=== PATIENT | female | born 1955 | race Caucasian/White ===

== ENCOUNTER 2018-08-21 21:14 | Emergency (ER) | payer OTHER ==
--- OUTSIDE RECORDS SUMMARY | 2018-08-21 21:25 | XMS REPORT | Continuity of Care Document ---
:1955 Author Organization Interface Problems Problem Status Onset Classification Date Comments Source Date Reported K86.2 - CYST OF Active [facility] PANCREAS 016 [facility] DIARRHEA Active Condition 06/17/2014 Medical 015 Group GASTROENTERITIS, Active Condition 06/17/2014 [facility] VIRAL, ACUTE 015 Group ABDOMINAL PAIN, Active Condition 06/17/2014 [facility] EPIGASTRIC 015 Group Diarrhea<sup>3</s Active Problem 10/01/2015 Data [facility] up> 015 migrated [facility] from [employer] on 09/07/14. Epigastric Active Problem 10/01/2015 Data [facility] pain<sup>5</sup> 015 migrated [facility] from [employer] on 09/07/14. Viral Resolved Problem 10/01/2015 Data [facility] gastroenteritis<s 015 migrated [facility] up>8</sup> from [employer] on 09/07/14. HYPERTENSION, Active Condition 06/17/2014 Medical BENIGN ESSENTIAL 015 Group SKIN LESION Active Condition 06/17/2014 Medical 015 Group Benign essential Active Problem 10/01/2015 Data [facility] hypertension<sup> 015 migrated [facility] 2</sup> from [employer] on 09/07/14. Disorder of Active Problem 10/01/2015 Data [facility] skin<sup>4</sup> 015 migrated [facility] from [employer] on 09/07/14. Vitamin D Active Problem 10/01/2015 Data [facility] deficiency<sup>9< 015 migrated [facility] /sup> from [employer] on 09/07/14. 577.2 - PANCREAT Active [facility] CYST/P 015 [facility] SINUSITIS Inactive Condition 06/17/2014 Medical 015 Group LOW BACK PAIN Active Condition 06/17/2014 Medical 014 Group BREAST SCREENING, Inactive Condition 06/17/2014 Medical UNSPECIFIED 014 Group TOE PAIN Inactive Condition 06/17/2014 Medical 014 Group ROUTINE Inactive Condition 06/17/2014 Medical GYNECOLOGICAL 014 Group EXAMINATION SCREENING FOR Inactive Condition 06/17/2014 Medical MALIGNANT 014 Group NEOPLASM OF THE CERVIX LEUKORRHEA Inactive Condition 06/17/2014 Medical 014 Group SCREENING, Inactive Condition 06/17/2014 Medical DIABETES MELLITUS 014 Group BRONCHITIS, ACUTE Inactive Condition 06/17/2014 Medical 014 Group Acute Resolved Problem 10/01/2015 Data [facility] bronchitis<sup>1< 014 migrated [facility] /sup> from [employer] on 09/16/14. BACK PAIN, LUMBAR Inactive Condition 06/17/2014 Medical 014 Group HIP PAIN, LEFT Inactive Condition 06/17/2014 Medical 014 Group NECK PAIN Inactive Condition 06/17/2014 Medical 013 Group BACK PAIN, Inactive Condition 06/17/2014 Medical THORACIC REGION 013 Group CYST AND Active Condition 06/17/2014 Medical PSEUDOCYST OF 013 Group PANCREAS ALLERGIC RHINITIS Active Condition 06/17/2014 Medical 013 Group DIVERTICULOSIS OF Inactive Condition 06/17/2014 Medical COLON 013 Group NEOPLASM Inactive Condition 06/17/2014 Medical UNCERTAIN BHV 013 Group OTH&UNSPEC DIGESTIVE ORGN IMPAIRED FASTING Inactive Condition 06/17/2014 Medical GLUCOSE 013 Group DYSLIPIDEMIA Active Condition 06/17/2014 Medical 013 Group PATELLAR Inactive Condition 06/17/2014 Medical DISLOCATION, 013 Group RIGHT ABDOMINAL PAIN, Inactive Condition 06/17/2014 Medical LEFT LOWER 013 Group QUADRANT DIVERTICULITIS OF Active Condition 06/17/2014 Medical COLON 013 Group UTI Inactive Condition 06/17/2014 Medical 013 Group SACROILIITIS, Active Condition 06/17/2014 Medical RIGHT 013 Group Urinary tract Resolved Problem 10/01/2015 Data [facility] infectious 013 migrated [facility] disease<sup>7</grewal from [employer] p> Cent[employer]ity on 09/16/14. MUSCLE SPASM Inactive Condition 06/17/2014 Medical 012 Group VITAMIN B12 Active Condition 06/17/2014 Medical DEFICIENCY 012 Group MACROCYTIC ANEMIA Inactive Condition 06/17/2014 Medical 012 Group COLD SORE Active Condition 06/17/2014 Medical 012 Group URINARY TRACT Inactive Condition 06/17/2014 Medical INFECTION, 012 Group RECURRENT GYNECOLOGICAL Inactive Condition 06/17/2014 Medical EXAMINATION 012 Group ROUTINE URINALYSIS, Inactive Condition 06/17/2014 Medical ABNORMAL 012 Group UTERINE PROLAPSE Inactive Condition 06/17/2014 Medical 012 Group SCREENING FOR Inactive Condition 06/17/2014 Medical MLIG NEOP, 012 Group BREAST, NOS PHYSICAL Inactive Condition 06/17/2014 Medical EXAMINATION 012 Group VITAMIN D Inactive Condition 06/17/2014 Medical DEFICIENCY 012 Group EXPOSURE TO Inactive Condition 06/17/2014 Medical COMMUNICABLE 012 Group DISEASE NOS Exposure to Resolved Problem 10/01/2015 Data [facility] communicable 012 migrated [facility] disease<sup>6</grewal from [employer] p> Centricity on 09/16/14. Herpes Labialis Problem 06/10/2016 [facility] Conjunctivitis Problem 06/10/2016 [facility] Acute Sinusitis Problem 06/10/2016 [facility] Acute Upper Problem 06/10/2016 [facility] Respiratory Infection Urinary Tract Problem 06/10/2016 [facility] Infectious Disease Vaginitis and Problem 06/10/2016 [facility] Vulvovaginitis Cellulitis of Problem 06/10/2016 [facility] Face Contact Problem 06/10/2016 [facility] Dermatitis Elevated Blood Problem 06/10/2016 [facility] Pressure Final: Other 01/03/2014 [facility] Screening [facility] Mammogram Allergic rhinitis Active Problem 10/01/2015 [facility] Cyst and Active Problem 10/01/2015 [facility] Pseudocyst of [facility] Pancreas GERD without Active Problem 10/01/2015 [facility] esophagitis [facility] Hyperlipidemia Active Problem 10/01/2015 [facility] LUMBAGO Active Problem 10/01/2015 [facility] Medications Medication Details Route Status Patient Ordering Order Source Instructions Provider Date ZOFRMARCOS ODT 4 MG 1-2 tabs po q8 Active Medical TBDP prn 2014 Group nausea/Vomitin g TRAMADOL HCL 50 1 tablet every Active Medical MG TABS 8 hours as 2014 Group needed for pain METOPROLOL 1 tablet daily Active Medical SUCCINATE ER 25 for blood 2014 Group MG [id number] pressure and heart [facility] per bottle Active Medical GLUCOSAMINE-CHO directions 2014 Group NDROITIN TABS CALTRATE 600+D 1-2 tabs daily Active Medical TABS 2014 Group AZITHROMYCIN 2 tablets No Medical 250 MG TABS daily for 1 Longer 2014 Group day, then 1 Active tablet daily for 4 days CIPROFLOXACIN 1 tablet twice No Medical HCL 500 MG TABS daily x 7 days Longer 2013 Group for infection Active CIPROFLOXACIN 1 tablet twice No Medical HCL 500 MG TABS daily x 7 days Longer 2013 Group for infection Active CIPRO 500 MG 0ne po bid No Medical TABS Longer 2013 Group Active FLAGYL 500 MG one po tid No Medical TABS Longer 2013 Group Active CIPRO 500 MG 0ne po bid No Medical TABS Longer 2013 Group Active CIPRO 500 MG 1 tab po bid No Medical TABS for 10 days Longer 2013 Group Active CIPRO 500 MG 1 tab po bid No Medical TABS for 10 days Longer 2013 Group Active TRAMADOL HCL 50 1 po q6h prn No Medical MG TABS pain Longer 2013 Group Active TRAMADOL HCL 50 1 po q6h prn No Medical MG TABS pain Longer 2013 Group Active TRAMADOL HCL 50 1 po q6h prn No Medical MG TABS pain Longer 2013 Group Active TRAMADOL HCL 50 1 po q6h prn No Medical MG TABS pain Longer 2013 Group Active IBUPROFEN 800 One tab PO BID No Medical MG TABS prn pain Longer 2012 Group Active IBUPROFEN 800 One tab PO BID No 12/10/ Medical MG TABS prn pain Longer 2012 Group Active IBUPROFEN 800 One tab PO BID No 12/10/ Medical MG TABS prn pain Longer 2012 Group Active CIPRO 500 MG 1 tb po bid No Medical TABS Longer 2012 Group Active CIPRO 500 MG 1 tb po bid No Medical TABS Longer 2012 Group Active FLAGYL 500 MG 1 tab po tid No Medical TABS FOR 10 DAYS Longer 2012 Group Active DIFLUCAN 150 MG 1 dose QWK FOR No Medical TABS 2 WEEKS Longer 2012 Group Active BACTRIM DS 1 bid for 10 No Medical 800-160 MG TABS days Longer 2012 Group Active BACTRIM DS 1 bid for 10 No Medical 800-160 MG TABS days Longer 2012 Group Active ZANTAC 150 MG 1 po qd Active Medical TABS 2012 Group CIPRO 500 MG 1 tb po bid No Medical TABS Longer 2012 Group Active CIPRO 500 MG 1 tb po bid No Medical TABS Longer 2012 Group Active MOBIC 15 MG 1 tab po qd Active Medical TABS prn ( 2012 Group inflammation/p ain) CIPRO 500 MG 1 tab po bid No Medical TABS for 7 days Longer 2012 Group Active MOBIC 15 MG 1 tab po qd Active Medical TABS prn ( 2012 Group inflammation/p ain) CIPRO 500 MG 1 tab po bid No Medical TABS for 7 days Longer 2012 Group Active METAXALONE 800 1 tab po tid Active Medical MG TABS prn 2011 Group LIDODERM 5 % apply to area Active Medical PTCH that hurts up 2011 Group to 12h/d METAXALONE 800 1 tab po tid No 10/31/ Medical MG TABS prn Longer 2011 Group Active LIDODERM 5 % apply to area Active Medical PTCH that hurts up 2011 Group to 12h/d METAXALONE 800 1 tab po tid Active Medical MG TABS prn 2011 Group ALENDRONATE 1 po q week No Medical SODIUM 70 MG remain upright Longer 2011 Group TABS for one hour Active after taking take on empty stomach ALENDRONATE 1 po q week No Medical SODIUM 70 MG remain upright Longer 2011 Group TABS for one hour Active after taking take on empty stomach ACYCLOVIR 400 1 tab po tid Active Medical MG TABS 2011 Group EVISTA 60 MG 1 po q d No Medical TABS Longer 2011 Group Active EVISTA TAB 60MG 1 po daily No Medical Longer 2011 Group Active ACYCLOVIR 400 1 tab po up to Active Medical MG TABS 5x daily x 7 2011 Group days EVISTA 60 MG 1 po q d No Medical TABS Longer 2011 Group Active EVISTA TAB 60MG 1 po daily No Medical Longer 2011 Group Active ACYCLOVIR 400 1 tab po tid Active Medical MG TABS 2011 Group FLUTICASONE 2 puffs each Active Medical PROPIONATE 50 nostril qd 2011 Group MCG/ACT SUSP PEDIADERM TA apply No Medical 0.1 % KIT topically prn Longer 2011 Group rash Active ETODOLAC 400 MG 1 tab po bid No Medical TABS prn Longer 2011 Group Active TRIAMCINOLONE apply once No Medical ACETONIDE 0.1 % daily Longer 2011 Group CREA Active FLONASE 50 2 sprays eacnh No Medical MCG/ACT SUSP nostril qd prn Longer 2011 Group allergies Active ETODOLAC 400 MG 1 tab po bid No Medical TABS prn Longer 2011 Group Active FLONASE 50 2 sprays eacnh No Medical MCG/ACT SUSP nostril qd prn Longer 2011 Group allergies Active FLUTICASONE Two sprays Active Medical PROPIONATE 50 each nostril 2011 Group MCG/ACT SUSP daily ETODOLAC 400 MG 1 tab po bid No Medical TABS prn Longer 2011 Group Active ETODOLAC 400 MG 1 tab po bid No Medical TABS prn Longer 2011 Group Active Alendronic acid alendronate 70 Active [facility] 70 MG Oral mg tablet TAKE Tablet 1 TABLET ONCE A WEEK ORALLY 30 DAY(S) Calcium 500 + D Calcium 500 + Active [facility] D Fluarix Quad Fluarix Quad Active [facility] [id number] (PF) 4243-8203 (PF) 60 mcg (15 mcg 60 mcg (15 mcg x 4)/0.5 mL IM x 4)/0.5 mL IM syringe syringe TO BE ADMINISTERED BY PHARMACIST FOR IMMUNIZATION Fluticasone fluticasone 50 Active [facility] propionate 0.05 mcg/actuation MG/ACTUAT nasal Metered Dose spray,suspensi Nasal Coral on Inhale 2 sprays every day by intranasal route as directed to both nostrils for 14 days. Lidocaine 0.05 lidocaine 5 % Active [facility] MG/MG Medicated topical patch Patch meloxicam 15 MG meloxicam 15 Active [facility] Oral Tablet mg tablet TAKE 1 TABLET BY MOUTH EVERY DAY metaxalone 800 metaxalone 800 Active [facility] MG Oral Tablet mg tablet TAKE 1 TABLET BY MOUTH TWICE A DAY NEEDED FOR 90 DAYS 24 HR metoprolol Active [facility] metoprolol succinate ER succinate 25 MG 25 mg Extended tablet,extende Release Oral d release 24 Tablet hr TAKE 1 TABLET BY MOUTH DAILY tramadol tramadol 50 mg Active [facility] hydrochloride tablet TAKE 1 50 MG Oral TABLET BY Tablet MOUTH EVERY 12 HOURS NEEDED PAIN Ranitidine 150 Zantac 150 mg Active [facility] MG Oral Tablet tablet Take 1 [Zantac] tablet twice a day by oral route. Allergies, Adverse Reactions, Alerts Substance Category Reaction Severity Reaction Status Date Comments Source type Reported FOSAMAX Drug FOSAMAX Medical allergy 4 Group alendronat Assertion Drug Active 1Data [facility] e<sup>1</s allergy 4 migrated [facility] up> from [employer] on 07/01/14. Originally documented as FOSAMAX. hurt all over from head to toe, tailbone hurt Fosamax Allergy to [facility] substance 5 Actonel Allergy to [facility] substance 5 Immunizations Immunization Date Site Status Last Comments Source Given Updated influenza, completed [facility] injectable, 5 quadrivalent Tdap completed [facility] 5 influenza, completed [facility] injectable, 4 quadrivalent influenza, completed [facility] seasonal, 3 injectable influenza, completed [facility] seasonal, 2 injectable dT (Diphtheria completed Medical and Tetanus) 1 Group booster given tetanus-diphther completed Result [facility] ia 1 Comment: Rosemary toxoids<sup>1</s historical. up> Migrated from OBS ; Data migrated from [employer] on 04/04/2015. Tdap completed [facility] 1 Results Order Name Results Value Reference Date Interpretation Comments Source Range Abdomen wo Abdomen wo PROCEDURE: MAGNETIC RESONANCE CHOLANGIOPANCREATOGRAPHY 09/27 - [facility] contrast contrast MRI /2015 - [facility] CLINICAL INDICATION: K86.2 Cyst of pancreas. Read by: Roel Segovia MD Dictated Date/time: 09/29/15 10:45 Electronically Signed by: Roel Segovia MD 09/29/15 11:27 FINAL REPORT COMPARISON: MRCP 08/18/2014. Abdomen magnetic resonance imaging 2013 and 08/10/2012. Abdomen and pelvis CT 06/25/2012. TECHNIQUE: Magnetic resonance cholangiopancreatography is performed with unenhanced coronal T2 and axial T2 weighted MR images of the abdomen. Thick slab MRCP images and maximum intensity projection images are also obtained. Please note that lack of intravenous contrast limits evaluation of the organs and vasculature. FINDINGS: There is mild patient motion. There is no biliary dilatation. The maximal diameter of the common bile duct measures approximately 5 mm. There is apparent segmental narrowing of the mid aspect of the common bile duct on the projection images which may be artifactual. There is no demonstrable choledocholithiasis. There is an apparent 9 x 4 mm filling defect in the lumen of the gallbladder neck (e.g. image 23 series 401), new from the comparison examinations. A gallstone cannot be excluded. No gallstone was repor denisha on a liver ultrasound performed 06/17/2014. There is no demonstrable gallbladder wall thickening or pericholecystic fluid. Again noted are pancreatic cysts. There are two stable cysts in the pancreatic head each measuring approximately 10 mm. There are 2 tiny cysts in the uncinate process of the pancreas measuring approxima tely 4 mm and 3 mm, a solitary 4 mm cyst was noted in the uncinate process of the pancreas on the most recent comparison examination. There are multiple tiny cysts scattered throughout the pancreatic marilyn dy and tail the largest measuring approximately 4 mm which given the differences in slice selection have increased in number from the most recent comparison examination. The pancreas is otherwise unrema rkable. There is no demonstrable pancreatic ductal dilatation or acute inflammatory change. There is a stable 9 mm right adrenal nodule. There is no demonstrable abnormality of the liver, spleen, left adrenal gland or kidneys. There is no hydronephrosis. A tiny cyst in the posterior segment of the right hepatic lobe on the most recent comparison examinations is not seen on this examination. There is a nonobstructive bowel gas pattern. There is colonic diverticulosis. There is no ascites or pleural effusion. The caliber of the abdominal aorta is within normal limits. There is no demonstrable pathologic retroperitoneal lymphadenopathy. There are degenerative changes of the spine. There is grade 1 anterolisthesis of L4 on L5 demonstrated on the localizer images. There is spinal stenosis at L4-L5. This would be better assessed with lumbar spine magnetic resonance imaging. IMPRESSION: 1. Multiple subcentimeter pancreatic cysts have increased in number from the most recent comparison examination. 2. Possible small gallstone in the gallbladder neck. Further evaluation may be obtained with a gallbladder ultrasound. 3. Otherwise there has been no significant interval change from the most recent comparison MRCP performed 08/18/2014. SL: 15 Tibia Tibia fibula Examination: Right tibia/fibula, 2 [facility] - [facility] series DX History: 924.5 Contusion of Unspecified Part of Lower Limb Read by : Tato Hudson MD Dictated Date/time: 10/28/14 11:29 Electronically Signed by: Tato Hudson MD 10/28/14 11:30 FINAL REPORT Comparison: None. Findings: Multiple views of the right tibia/fibula show no acute bony fracture, joint dislocation or suspicious osseous lesion. Soft tissues are unremarkable. IMPRESSION: No significant abnormality of the right tibia/fibula. SL: 16 Ext Lower Ext Lower PROCEDURE: UNILATERAL LOWER EXTREMITY VENOUS ULTRASOUND 10/28 [facility] Venous Venous /2014 - [facility] Doppler Doppler Unilat US Unilat US INDICATION: Hematoma/contusion. Read by: Roel Segovia MD Dictated Date/time: 10/28/14 12:54 Electronically Signed by: Roel Segovia MD 10/28/14 13:02 FINAL REPORT COMPARISON: None. TECHNIQUE: Sonographic evaluation of the right lower extremity veins was performed using high resolution B-mode, pulse and color Doppler imaging. Static images are submitted. FINDINGS:The common femoral, femoral, popliteal and visualized calf veins are patent. Normal venous waveforms. The saphenofemoral junction is unremarkable. There is no demonstrable reflux in the proximal greater saphenous vein. In the subcutaneous soft tissues of the right knee at the location of the patient's symptoms there is a 4.6 x 4.2 x 0.6 cm nonvascular complex cystic structure. The primary consideration is a hematoma. IMPRESSION: 1. There is no sonographic evidence for deep venous thrombosis in the examined veins of the right lower extremity. 2. There is a 4.6 cm complex cystic structure in the subcutaneous soft tissues of the right knee. The primary consideration is a hematoma. If desired further evaluation may be obtained with an unenhanced and enhanced MRI of the right knee. SL: 16 Abdomen wo Abdomen wo 08/18 - OPI contrast contrast MRI /2014 - [facility] MRCP Read by: Roel Segovia MD Dictated Date/time: 08/18/14 16:40 REASON FOR EXAM: 577.2. Pancreatic cyst. Electronically Signed by: Roel Segovia MD 08/18/14 17:27 FINAL REPORT COMPARISON: Liver ultrasound 06/17/2014. MRI of the abdomen 2013 and 08/10/2012. Abdomen and pelvic CT 06/25/2012. TECHNIQUE: Unenhanced axial and coronal T2-weighted MR images of the abdomen were performed. Thick slab projection images of the common bile duct were performed. Please note that lack of IV contrast limits evaluation of the solid organs and vasculature. FINDINGS: There is patient motion/poor breath-holding on the thick slab projection images with resulting artifact. The common bile duct demonstrates a normal caliber measuring a maximal diameter of 5 mm . There is artifact in the mid aspect of the common bile duct on the reformatted projection images. Given this limitation there is no demonstrable biliary mass or stone. There are pancreatic cysts: Stable 10 mm cyst in pancreatic head, additional 10 mm cyst in the pancreatic head (previously 8 mm on the most recent comparison examination), stable 4 mm cyst in the uncina te process, stable 3 mm cyst in the proximal pancreatic body, stable 3 mm cyst in the distal pancreatic body and stable 4 mm cyst in the distal pancreatic body. There is no pancreatic ductal dilatation or acute pancreatic inflammatory change. There is a stable 9 mm right adrenal nodule. There is a stable 3 mm cyst in the posterior segment of the right hepatic lobe. The left adrenal gland, gallbladder, spleen and kidneys are unremarkable. No hydronephrosis. There is a nonobstructive bowel gas pattern. There is colonic diverticulosis. There is no ascites or pleural effusion. The caliber of the abdominal aorta is within normal limits. There is no pathologic retroperitoneal lymphadenopathy. There are degenerative changes of the spine. There is grade 1 anterolisthesis of L4 on L5 demonstrated on the localizer images. There is spinal stenosis at L4-L5. This would be better assessed with a lumbar spine MRI. IMPRESSION: 1. A 10 mm cyst in the pancreatic head demonstrates slight interval increase in size from the most recent comparison examination, previously 8 mm. 2. Otherwise there has been no significant interval change from the most recent comparison MRI of the abdomen performed 2013. SL: 15 Chemistry AMYLASE 65 U/L 25 - 115 06/17 Medical Group Chemistry MAGNESIUM 1.5 mg/dL 1.8 - 2.4 06/17 Medical Group Chemistry SODIUM 139 MEQ/L 135 - 145 06/17 mmol/L Medical Group Chemistry POTASSIUM 3.7 MEQ/L 3.5 - 5.1 06/17 mmol/L Medical Group Chemistry CREATININE 0.8 mg/dL 0.5 - 1.4 06/17 Medical Group Chemistry BUN 10 mg/dL 7 - 22 06/17 Medical Group Chemistry BUN/CREAT 12 6 - 25 06/17 Medical Group Chemistry ALBUMIN 4.1 g/dL 3.5 - 5.0 06/17 Medical Group Chemistry CALCIUM 9.2 mg/dL 8.5 - 10.5 06/17 Medical Group Chemistry SGPT (ALT) 26 U/L 0 - 65 06/17 Medical Group Chemistry SGOT (AST) 25 U/L 0 - 37 06/17 Medical Group Chemistry ALK PHOS 87 U/L 39 - 136 06/17 Medical Group Hematology HGB 12.9 g/dL 12.0 - 06/17 16.0 Medical Group Hematology HCT 39.7 % 36.0 - 06/17 48.0 Medical Group Hematology PLATELETS 269 K/CMM 133 - 450 06/17 /mm3 /2014 Medical Group Urinalysis UA COLOR Light 06/17 Medical Group Urinalysis BACTERIA URN Occasional 06/17 Medical Group Liver US Liver US PLEASE DISREGARD THIS REPOR-WRONG ORDERING PHYSICIAN - [facility] HISTORY: Abdominal pain. Liver ultrasound exam. Electronically Signed by: Jose Luis Mendes MD 06/28/14 12:54 FINAL REPORT - - Liver parenchyma normal. Gallbladder normal. Read by: Jose Luis Mendes MD Dictated Date/time: 06/17/14 10:49 Common bile duct 5 mm. Electronically Signed by: Jose Luis Mendes MD 06/17/14 10:51 FINAL REPORT Visualized pancreatic neck and body normal. The right kidney demonstrates no hydronephrosis. No ascites seen. IMPRESSION: No significant finding. SL:13 Liver US Liver US HISTORY: Abdominal pain. 06/17 - - [facility] Liver ultrasound exam. Read by: Jsoe Luis Mendes MD Dictated Date/time: 06/17/14 10:49 Electronically Signed by: Jose Luis Mendes MD 06/17/14 10:51 FINAL REPORT Liver parenchyma normal. Gallbladder normal. Common bile duct 5 mm. Visualized pancreatic neck and body normal. The right kidney demonstrates no hydronephrosis. No ascites seen. IMPRESSION: No significant finding. SL:13 Chemistry SODIUM 135 MEQ/L 135 - 145 06/04 mmol/L Medical Group Chemistry POTASSIUM 4.3 MEQ/L 3.5 - 5.1 06/04 mmol/L Medical Group Chemistry CREATININE 0.9 mg/dL 0.5 - 1.4 06/04 Medical Group Chemistry BUN 16 mg/dL 7 - 22 06/04 Medical Group Chemistry BUN/CREAT 18 6 - 25 06/04 Medical Group Chemistry ALBUMIN 4.4 g/dL 3.5 - 5.0 06/04 Medical Group Chemistry CALCIUM 9.6 mg/dL 8.5 - 10.5 06/04 Medical Group Chemistry SGPT (ALT) 22 U/L 0 - 65 06/04 Medical Group Chemistry SGOT (AST) 24 U/L 0 - 37 06/04 Medical Group Chemistry ALK PHOS 98 U/L 39 - 136 06/04 [facility] Chemistry SODIUM 135 MEQ/L 135 - 145 06/04 mmol/L [facility] Chemistry POTASSIUM 4.3 MEQ/L 3.5 - 5.1 06/04 mmol/L [facility] Chemistry CREATININE 0.9 mg/dL 0.5 - 1.4 06/04 [facility] Chemistry BUN 16 mg/dL 7 - 22 06/04 [facility] Chemistry BUN/CREAT 18 6 - 25 06/04 [facility] Hematology HGB 13.4 g/dL 12.0 - 06/04 16.0 [facility] Hematology HCT 40.6 % 36.0 - 06/04 48.0 [facility] Hematology PLATELETS 220 K/CMM 133 - 450 06/04 / [facility] Urinalysis UA COLOR Light 06/04 Yellow /2014 [facility] Urinalysis UA COLOR Light 06/04 Yellow /2014 [facility] Digital Digital - DIGITAL MAMMO SCREENING JOSUE PANG 12/31 - [facility] Mammo Mammo /2013 [facility] Screening Screening BILATERAL DIGITAL SCREENING MAMMOGRAM WITH CAD: 2013 Josue Salas MD CLINICAL: Routine. Read by: Ban Moctezuma MD Dictated Date/time: 12/31/13 08:45 Electronically Signed by: Ban Moctezuma MD 12/31/13 08:45 FINAL REPORT Current study was evaluated with a Computer Aided Detection (CAD) system. Comparison is made to exams dated: 11/24/2012 mammogram and 11/14/2011 mammogram - [facility]. The tissue of both breasts is almost entirely fat. There is a benign calcification in the right breast. There also are benign appearing calcifications in the left breast. Additionally there are benign appearing densities in the left breast. No significant masses, calcifications, or other findings are seen in either breast. There has been no significant interval change. IMPRESSION: BENIGN There is no mammographic evidence of malignancy. A screening mammogram in one year is recommended. Ban plasencia/penrad:12/31/2013 08:45:46 Hearing Aid Assembly Supervisor: Nadya Wadsworth [facility] This exam was dictated and interpreted by [id number] for Rosemary 15. letter sent: Normal exam Mammogram BI-RADS: 2 Benign Chemistry SODIUM 140 MEQ/L 135 - 145 12/09 mmol/L [facility] Chemistry POTASSIUM 4.6 MEQ/L 3.5 - 5.1 12/09 mmol/L [facility] Chemistry CREATININE 0.8 mg/dL 0.5 - 1.4 12/09 [facility] Chemistry BUN 13 mg/dL 7 - 22 12/09 [facility] Chemistry SODIUM 140 MEQ/L 135 - 145 12/09 mmol/L [facility] Chemistry POTASSIUM 4.6 MEQ/L 3.5 - 5.1 12/09 mmol/L [facility] Chemistry CREATININE 0.8 mg/dL 0.5 - 1.4 12/09 [facility] Chemistry BUN 13 mg/dL 7 - 22 12/09 [facility] Chemistry BUN/CREAT 16 6 - 25 12/09 [facility] Chemistry SODIUM 140 MEQ/L 135 - 145 12/09 mmol/L [facility] Chemistry POTASSIUM 4.6 MEQ/L 3.5 - 5.1 12/09 mmol/L [facility] Chemistry CREATININE 0.8 mg/dL 0.5 - 1.4 12/09 [facility] Chemistry BUN 13 mg/dL 7 - 22 12/09 [facility] Chemistry BUN/CREAT 16 6 - 25 12/09 [facility] Chemistry ALBUMIN 4.4 g/dL 3.5 - 5.0 12/09 [facility] Chemistry CALCIUM 9.7 mg/dL 8.5 - 10.5 12/09 [facility] Chemistry SGPT (ALT) 21 U/L 0 - 65 12/09 [facility] Chemistry SGOT (AST) 17 U/L 0 - 37 12/09 [facility] Chemistry ALK PHOS 112 U/L 39 - 136 12/09 [facility] Hematology ESR 6 mm/hr 0 - 20 12/09 [facility] Serology ION Positive 12/09 [facility] Serology ION Positive 12/09 [facility] Serology ION Positive 12/09 [facility] Urinalysis UA COLOR Light 12/09 [facility] Urinalysis UA COLOR Light 12/09 [facility] Urinalysis UA COLOR Light 12/09 [facility] Chemistry HGBA1C 5.3 % - 5.6 08/02 [facility] Chemistry CHOLESTEROL 234 mg/dl - 199 08/02 [facility] Chemistry HGBA1C 5.3 % - 5.6 08/02 [facility] Chemistry CHOLESTEROL 234 mg/dl - 199 08/02 [facility] Chemistry TRIGLYCERIDE 130 mg/dl - 149 08/02 [facility] Chemistry HDL 70 mg/dl >=61 08/02 [facility] Chemistry HGBA1C 5.3 % - 5.6 08/02 [facility] Chemistry CHOLESTEROL 234 mg/dl - 199 08/02 [facility] Chemistry TRIGLYCERIDE 130 mg/dl - 149 08/02 [facility] Chemistry HDL 70 mg/dl >=61 08/02 [facility] Chemistry LDL 138 mg/dl - 99 08/02 [facility] Chemistry HGBA1C 5.3 % - 5.6 08/02 [facility] Chemistry CHOLESTEROL 234 mg/dl - 199 08/02 [facility] Chemistry TRIGLYCERIDE 130 mg/dl - 149 08/02 [facility] Chemistry HDL 70 mg/dl >=61 08/02 [facility] Chemistry LDL 138 mg/dl - 99 08/02 [facility] Chemistry SODIUM 139 MEQ/L 135 - 145 08/02 mmol/L [facility] Chemistry POTASSIUM 4.4 MEQ/L 3.5 - 5.1 08/02 mmol/L [facility] Chemistry CREATININE 0.6 mg/dL 0.5 - 1.4 08/02 [facility] Chemistry BUN 12 mg/dL 7 - 22 08/02 [facility] Chemistry BUN/CREAT 20 6 - 25 08/02 [facility] Chemistry ALBUMIN 4.1 g/dL 3.5 - 5.0 08/02 [facility] Chemistry CALCIUM 9.3 mg/dL 8.5 - 10.5 08/02 [facility] Chemistry SGPT (ALT) 22 U/L 0 - 65 08/02 [facility] Chemistry SGOT (AST) 25 U/L 0 - 37 08/02 [facility] Chemistry ALK PHOS 114 U/L 39 - 136 08/02 [facility] Chemistry TSH 0.554 0.360 - 08/02 uIU/mL 3.740 /2013 [facility] Hematology HGB 13.5 g/dL 12.0 - 08/02 MH 16.0 [facility] Hematology HCT 40.3 % 36.0 - 08/02 48.0 [facility] Hematology PLATELETS 228 K/CMM 133 - 450 08/02 /mm3 [facility] Urinalysis UA COLOR Colorless 08/02 [facility] Urinalysis UA COLOR Colorless 08/02 [facility] Urinalysis BACTERIA URN Occasional 08/02 [facility] Urinalysis UA COLOR Colorless 08/02 [facility] Urinalysis BACTERIA URN Occasional 08/02 [facility] Urinalysis UA COLOR Colorless 08/02 [facility] Urinalysis BACTERIA URN Occasional 08/02 [facility] Abdomen Abdomen w/wo 03/15 - [facility] w/wo contrast /2013 - [facility] contrast REASON FOR EXAM: 577.2. MRI Read by: Roel Segovia Dictated Date/time: 03/15/13 10:35 COMPARISON: MRI of the abdomen 08/10/2012. Abdomen and pelvic CT 2012. Electronically Signed by: Reol Segovia MD 03/15/13 11:39 FINAL REPORT TECHNIQUE: Unenhanced axial and coronal MR images of the abdomen were performed. Postcontrast axial images of the abdomen were performed in a dynamic fashion. A coronal delayed postcontrast sequence was performed. FINDINGS: There are simple appearing pancreatic cysts: 10 mm in the uncinate process of the pancreatic head (previously 7 mm), 8 mm in the pancreatic head (previously 6 mm), and stable cysts in the dist al pancreatic body measuring 4 mm and 3 mm. Several additional cysts in the uncinate process of the pancreas the largest measuring 4 mm and a 3 mm cyst in the pancreatic body are likely stable from the comparison examination given the differences in technique (a high- resolution axial T2 weighted sequence of the pancreas was performed on this examination). The postcontrast sequences are somewhat limite d due to patient motion/poor breath-holding with resulting artifact. Given this limitation there is no demonstrable abnormal enhancement. There is no demonstrable pancreatic ductal dilatation or pancreatic inflammatory change. There is a stable 9 mm right adrenal nodule with imaging characteristics suggesting a benign adenoma. A newly observed 3 mm cyst is suspected in the posterior segment of the right hepatic lobe (image 16 series 401). The left adrenal gland, gallbladder, spleen and kidneys are unremarkable. No hydronephrosis. There is a nonobstructive bowel gas pattern. Colonic diverticulosis. No ascites or pleural effusion. The caliber of the abdominal aorta is within normal limits. There is no pathologic retroperitoneal ly mphadenopathy. Degenerative changes of the spine. IMPRESSION: 1. There is a newly observed tiny cyst in the right hepatic lobe. 2. Small pancreatic cysts some of which demonstrate slight interval increase in size. Consider an additional short interval follow-up MRI of the pancreas in 6 months. 3. Otherwise there has been no significant interval change from the comparison MRI of the abdomen performed 08/10/2012. Please correlate clinically and consider follow-up imaging as indicated. Dictation code: 15 Hip min 2 Hip min 2 Left hip-2 views 03/10 - [facility] views views /2013 - [facility] HX: LEFT HIP PAIN / Read by: Esdras Arriaga Dictated Date/time: 03/10/13 13:55 FINDINGS: AP and lateral views reveal no evidence of fracture, dislocation or radiopaque foreign body. The visualized soft tissues are grossly normal. Electronically Signed by: Esdras Arriaga MD 03/10/13 13:56 FINAL REPORT IMPRESSION: Negative study. SL: 15 Spine Spine lumbar LUMBAR SPINE SERIES -- 5 VIEWS 03/10 - [facility] lumbar minimum - [facility] minimum 4 views HX: LOW BACK PAIN views Read by: Esdras Arriaga Dictated Date/time: 03/10/13 13:55 FINDINGS: Views of the lumbar spine reveal no evidence of compression deformity or subluxation. Vertebral body heights and disc space intervals are preserved. Oblique views show no evidence of spondy Electronically Signed by: Esdras Arriaga MD 03/10/13 13:55 lolysis or spondylolisthesis. Five lumbar-type vertebral bodies are present. FINAL REPORT IMPRESSION: Negative lumbar spine series. SL: 15 Spine cerv Spine cerv CERVICAL SPINE RADIOGRAPH 7 VIEWS WITH FLEXION AND EXTENSION 01/29 - [facility] comp comp /2012 - [facility] w/obl-flx/e w/obl-flx/ex xt t INDICATION: Neck pain Read by: Juan David Gonzalez Dictated Date/time: 01/29/13 13:25 Electronically Signed by: Juan David Gonzalez MD 01/29/13 13:27 FINAL REPORT COMPARISON: None FINDINGS: The vertebral bodies are within normal alignment. Flexion and extension do not elicit spondylolisthesis. The disc spaces are maintained. There is no appreciable foraminal stenosis. No compression or dis placed fractures are seen. The prevertebral soft tissues are unremarkable. IMPRESSION: Unremarkable radiographic appearance of the cervical spine. SL: 16 Spine Spine THORACIC SPINE RADIOGRAPH 3 [facility] 3 thoracic - [facility] views views INDICATION: Back pain Read by: Juan David Gonzalez Dictated Date/time: 01/29/13 13:27 Electronically Signed by: Juan David Gonazlez MD 01/29/13 13:27 FINAL REPORT COMPARISON: None FINDINGS: Vertebral alignment is within normal limits. The disc spaces are maintained. No compression or displaced fractures are seen. The paravertebral soft tissues are unremarkable. IMPRESSION: Unremarkable thoracic spine radiograph. SL: 16 Digital Digital - DIGITAL MAMMO SCREENING JOSUE BIRD 11/24 - [facility] /[address] [place] [address] Screening Screening BILATERAL DIGITAL SCREENING MAMMOGRAM WITH CAD: 2012 [facility] CLINICAL: Screening For Mlig Neop, Breast, Nos (Icd-V76.10). Read by : Ban Moctezuma Dictated Date/time: 11/27/12 10:23 Electronically Signed by: Ban Moctezuma MD 11/27/12 10:23 FINAL REPORT Current study was evaluated with a Computer Aided Detection (CAD) system. Comparison is made to exam dated: 11/14/2011 mammogram - [facility]. The tissue of both breasts is predominantly fatty. There is a benign calcification in the right breast. There also are benign appearing calcifications in the left breast. Additionally there are benign appearing densities in the left breast. No significant masses, calcifications, or other findings are seen in either breast. There has been no significant interval change. IMPRESSION: BENIGN There is no mammographic evidence of malignancy. A screening mammogram in one year is recommended. SUMMARY: SL: 15. Ban plasencia/penrad:11/27/2012 10:23:28 Hearing Aid Assembly Supervisor: Cristel Narvaez [facility] letter sent: Normal exam Mammogram BI-RADS: 2 Benign Abdomen Abdomen with 08/10 - [facility] with and and [facility] without contrast MRI REASON FOR EXAM: 235.5. contrast MRI Read by: Roel Segovia Dictated Date/time: 08/10/12 10:46 COMPARISON: Abdomen and pelvic CT 06/25/2012. Electronically Signed by: Roel Segovia MD 08/10/12 11:31 FINAL REPORT TECHNIQUE: Unenhanced axial and coronal MR images of the abdomen were performed. Postcontrast axial images of the abdomen were performed in a dynamic fashion. FINDINGS: There are nonenhancing pancreatic cysts: 7 mm in the uncinate process of the pancreatic head, 6 mm in the pancreatic head, 4 mm in the distal pancreatic body and 3 mm in the distal pancreatic body. No demonstrable wall thickening, mural nodule or internal septation. No demonstrable pancreatic ductal dilatation or pancreatic inflammatory change. There is a 9 mm right adrenal nodule with decreased signal intensity on the out of phase dual echo sequence suggesting a benign adenoma. The left adrenal gland, liver, gallbladder, spleen and kidneys are unremarkable. There is a nonobstructive bowel gas pattern. The stomach is nondistended limiting evaluation of the gastric wall. Colonic diverticulosis without demonstrable acute diverticulitis. No ascites or pleural effusion. The caliber of the abdominal aorta is within normal limits. There is no pathologic retroperitoneal lymphadenopathy. There is spinal stenosis at L4-L5 secondary to degenerative changes. This would be better assessed with a lumbar spine MRI. IMPRESSION: 1. There are several subcentimeter nonenhancing pancreatic cysts. A benign etiology is favored. A follow-up pancreatic CT or MRI is suggested in 6 months to demonstrate stability. 2. Small right adrenal nodule with imaging characteristics suggesting a benign adenoma. 3. Colonic diverticulosis. 4. Spinal stenosis at L4-L5 secondary to degenerative changes. Please correlate clinically and consider follow-up imaging as indicated. Dictation code: 15 Chemistry HGBA1C 5.5 % 07/07 [facility] Chemistry CHOLESTEROL 237 mg/dl 120 - 200 07/07 [facility] Chemistry HGBA1C 5.5 % 07/07 [facility] Chemistry CHOLESTEROL 237 mg/dl 120 - 200 07/07 [facility] Chemistry TRIGLYCERIDE 167 mg/dl 0 - 200 07/07 [facility] Chemistry HDL 72 mg/dl >=35 07/07 [facility] Chemistry HGBA1C 5.5 % 07/07 [facility] Chemistry CHOLESTEROL 237 mg/dl 120 - 200 07/07 [facility] Chemistry TRIGLYCERIDE 167 mg/dl 0 - 200 07/07 [facility] Chemistry HDL 72 mg/dl >=35 07/07 [facility] Chemistry LDL 132 mg/dl 0 - 129 07/07 [facility] Chemistry HGBA1C 5.5 % 07/07 [facility] Chemistry CHOLESTEROL 237 mg/dl 120 - 200 07/07 [facility] Chemistry TRIGLYCERIDE 167 mg/dl 0 - 200 07/07 [facility] Chemistry HDL 72 mg/dl >=35 07/07 [facility] Chemistry LDL 132 mg/dl 0 - 129 07/07 [facility] Chemistry SODIUM 141 MEQ/L 135 - 145 07/07 mmolL [facility] Chemistry POTASSIUM 4.1 MEQ/L 3.5 - 5.1 07/07 mmol/L [facility] Chemistry CREATININE 0.7 mg/dL 0.5 - 1.4 07/07 [facility] Chemistry BUN 12 mg/dL 7 - 22 07/07 [facility] Chemistry BUN/CREAT 17 6 - 25 07/07 [facility] Chemistry ALBUMIN 4.3 g/dL 3.5 - 5.0 07/07 [facility] Chemistry CALCIUM 9.4 mg/dL 8.5 - 10.5 07/07 [facility] Chemistry SGPT (ALT) 23 U/L 0 - 65 07/07 [facility] Chemistry SGOT (AST) 19 U/L 0 - 37 07/07 [facility] Chemistry ALK PHOS 109 U/L 39 - 136 07/07 [facility] Group Urinalysis UA COLOR YELLOW 06/23 [facility] Urinalysis UA COLOR YELLOW 06/23 [facility] Urinalysis EPI CELL UR 0-5 /lpf - 5 06/23 [facility] Urinalysis BACTERIA URN NONE SEEN 06/23 [facility] Urinalysis UA COLOR YELLOW 06/23 [facility] Urinalysis EPI CELL UR 0-5 /lpf - 5 06/23 [facility] Urinalysis BACTERIA URN NONE SEEN 06/23 [facility] Urinalysis UA COLOR YELLOW 06/23 [facility] Urinalysis EPI CELL UR 0-5 /lpf - 5 06/23 [facility] Urinalysis BACTERIA URN NONE SEEN 06/23 [facility] Chemistry SODIUM 139 MEQ/L 135 - 145 06/22 mmol/L [facility] Chemistry POTASSIUM 3.8 MEQ/L 3.5 - 5.1 06/22 mmol/L [facility] Chemistry SODIUM 139 MEQ/L 135 - 145 06/22 mmol/L [facility] Chemistry POTASSIUM 3.8 MEQ/L 3.5 - 5.1 06/22 mmol/L [facility] Chemistry CREATININE 0.7 mg/dL 0.5 - 1.4 06/22 [facility] Chemistry BUN 8 mg/dL 06/22 [facility] Chemistry SODIUM 139 MEQ/L 135 - 145 06/22 mmol/L [facility] Chemistry POTASSIUM 3.8 MEQ/L 3.5 - 5.1 06/22 mmol/L [facility] Chemistry CREATININE 0.7 mg/dL 0.5 - 1.4 06/22 [facility] Chemistry BUN 8 mg/dL 06/22 [facility] Chemistry SODIUM 139 MEQ/L 135 - 145 06/22 mmol/L [facility] Chemistry POTASSIUM 3.8 MEQ/L 3.5 - 5.1 06/22 mmol/L [facility] Chemistry SODIUM 139 MEQ/L 135 - 145 06/22 mmol/L [facility] Chemistry POTASSIUM 3.8 MEQ/L 3.5 - 5.1 06/22 mmol/L [facility] Chemistry CREATININE 0.7 mg/dL 0.5 - 1.4 06/22 [facility] Chemistry BUN 8 mg/dL 06/22 [facility] Chemistry SODIUM 139 MEQ/L 135 - 145 06/22 mmol/L [facility] Chemistry POTASSIUM 3.8 MEQ/L 3.5 - 5.1 06/22 mmol/L [facility] Chemistry CREATININE 0.7 mg/dL 0.5 - 1.4 06/22 [facility] Chemistry BUN 8 mg/dL 7 - 06/22 [facility] Chemistry BUN/CREAT 11 6 - 06/22 [facility] Chemistry SODIUM 139 MEQ/L 135 - 145 06/22 mmol/L [facility] Chemistry BUN/CREAT 11 - 06/22 [facility] Chemistry SODIUM 139 MEQ/L 135 - 145 06/22 mmol/L [facility] Chemistry POTASSIUM 3.8 MEQ/L 3.5 - 5.1 06/22 mmol/L [facility] Chemistry CREATININE 0.7 mg/dL 0.5 - 1.4 06/22 [facility] Chemistry BUN 8 mg/dL 7 - 06/22 [facility] Chemistry BUN/CREAT 11 - 06/22 [facility] Chemistry ALBUMIN 4.4 g/dL 3.5 - 5.0 06/22 [facility] Chemistry CALCIUM 9.6 mg/dL 8.5 - 10.5 06/22 [facility] Chemistry SGPT (ALT) 21 U/L 0 - 65 06/22 [facility] Chemistry SGOT (AST) 18 U/L 0 - 37 06/22 [facility] Chemistry ALK PHOS 111 U/L 39 - 136 06/22 [facility] Chemistry POTASSIUM 3.8 MEQ/L 3.5 - 5.1 06/22 mmol/L [facility] Chemistry CREATININE 0.7 mg/dL 0.5 - 1.4 06/22 [facility] Chemistry BUN 8 mg/dL - 06/22 [facility] Chemistry BUN/CREAT 11 - 06/22 [facility] Chemistry ALBUMIN 4.4 g/dL 3.5 - 5.0 06/22 [facility] Chemistry CALCIUM 9.6 mg/dL 8.5 - 10.5 06/22 [facility] Chemistry SGPT (ALT) 21 U/L 0 - 65 06/22 [facility] Chemistry SGOT (AST) 18 U/L 0 - 37 06/22 [facility] Chemistry ALK PHOS 111 U/L 39 - 136 06/22 [facility] Hematology HGB 13.4 g/dL 12.0 - 06/22 16.0 [facility] Hematology HCT 41.2 % 36.0 - 06/22 MH 48.0 /2012 [facility] Hematology PLATELETS 288 K/CMM 133 - 450 06/22 MH /mm3 /2012 [facility] Hematology HGB 13.4 g/dL 12.0 - 06/22 16.0 [facility] Hematology HCT 41.2 % 36.0 - 06/22 48.0 /2012 [facility] Hematology PLATELETS 288 K/CMM 133 - 450 06/22 MH /mm3 /2012 [facility] Urinalysis UA COLOR YELLOW 10/10 [facility] Urinalysis UA COLOR YELLOW 10/10 [facility] Urinalysis EPI CELL UR 6-10 /lpf - 5 10/10 [facility] Urinalysis BACTERIA URN FEW 10/10 [facility] Urinalysis UA COLOR YELLOW 10/10 [facility] Urinalysis EPI CELL UR 6-10 /lpf - 5 10/10 [facility] Urinalysis BACTERIA URN FEW 10/10 [facility] Urinalysis UA COLOR YELLOW 10/10 [facility] Urinalysis EPI CELL UR 6-10 /lpf - 5 10/10 [facility] Urinalysis BACTERIA URN FEW 10/10 [facility] Chemistry CHOLESTEROL 226 mg/dl 120 - 200 10/09 [facility] Chemistry TRIGLYCERIDE 126 mg/dl 0 - 200 10/09 [facility] Chemistry CHOLESTEROL 226 mg/dl 120 - 200 10/09 [facility] Chemistry TRIGLYCERIDE 126 mg/dl 0 - 200 10/09 [facility] Chemistry HDL 57 mg/dl >=35 10/09 [facility] Chemistry LDL 144 mg/dl 0 - 129 10/09 [facility] Chemistry CHOLESTEROL 226 mg/dl 120 - 200 10/09 [facility] Chemistry TRIGLYCERIDE 126 mg/dl 0 - 200 10/09 [facility] Chemistry HDL 57 mg/dl >=35 10/09 [facility] Chemistry LDL 144 mg/dl 0 - 129 10/09 [facility] Chemistry TSH 1.030 0.360 - 10/09 uIU/mL 3.740 /2011 [facility] Chemistry CHOLESTEROL 226 mg/dl 120 - 200 10/09 [facility] Chemistry TRIGLYCERIDE 126 mg/dl 0 - 200 10/09 [facility] Chemistry HDL 57 mg/dl >=35 10/09 [facility] Chemistry LDL 144 mg/dl 0 - 129 10/09 [facility] Chemistry ALK PHOS 122 U/L 39 - 136 10/09 [facility] Chemistry TRIGLYCERIDE 126 mg/dl 0 - 200 10/09 [facility] Chemistry CHOLESTEROL 226 mg/dl 120 - 200 10/09 [facility] Chemistry TRIGLYCERIDE 126 mg/dl 0 - 200 10/09 [facility] Chemistry HDL 57 mg/dl >=35 10/09 [facility] Chemistry LDL 144 mg/dl 0 - 129 10/09 [facility] Chemistry CHOLESTEROL 226 mg/dl 120 - 200 10/09 [facility] Chemistry TRIGLYCERIDE 126 mg/dl 0 - 200 10/09 [facility] Chemistry HDL 57 mg/dl >=35 10/09 [facility] Chemistry LDL 144 mg/dl 0 - 129 10/09 [facility] Chemistry FOLATE 25.7 ng/mL >=3.0 10/09 [facility] Chemistry CHOLESTEROL 226 mg/dl 120 - 200 10/09 [facility] Chemistry TRIGLYCERIDE 126 mg/dl 0 - 200 10/09 [facility] Chemistry HDL 57 mg/dl >=35 10/09 [facility] Chemistry LDL 144 mg/dl 0 - 129 10/09 [facility] Chemistry FOLATE 25.7 ng/mL >=3.0 10/09 [facility] Chemistry TSH 1.030 0.360 - 10/09 MH uIU/mL 3.740 [facility] Chemistry SODIUM 143 MEQ/L 135 - 145 10/09 mmol/L [facility] Chemistry TSH 1.030 0.360 - 10/09 MH uIU/mL 3.740 [facility] Chemistry SODIUM 143 MEQ/L 135 - 145 10/09 mmol/L [facility] Chemistry POTASSIUM 4.7 MEQ/L 3.5 - 5.1 10/09 mmol/L [facility] Chemistry BUN 16 mg/dL 7 - 22 10/09 [facility] Chemistry CREATININE 0.7 mg/dL 0.5 - 1.4 10/09 [facility] Chemistry BUN/CREAT 23 6 - 25 10/09 [facility] Chemistry ALBUMIN 4.1 g/dL 3.5 - 5.0 10/09 [facility] Chemistry CALCIUM 9.8 mg/dL 8.5 - 10.5 10/09 [facility] Chemistry SGOT (AST) 16 U/L 0 - 37 10/09 [facility] Chemistry SGPT (ALT) 19 U/L 0 - 65 10/09 [facility] Chemistry POTASSIUM 4.7 MEQ/L 3.5 - 5.1 10/09 mmol/L /2011 [facility] Chemistry BUN 16 mg/dL 7 - 22 10/09 [facility] Chemistry CREATININE 0.7 mg/dL 0.5 - 1.4 10/09 [facility] Chemistry BUN/CREAT 23 6 - 25 10/09 [facility] Chemistry ALBUMIN 4.1 g/dL 3.5 - 5.0 10/09 [facility] Chemistry CALCIUM 9.8 mg/dL 8.5 - 10.5 10/09 [facility] Chemistry SGOT (AST) 16 U/L 0 - 37 10/09 [facility] Chemistry SGPT (ALT) 19 U/L 0 - 65 10/09 [facility] Chemistry ALK PHOS 122 U/L 39 - 136 10/09 [facility] Hematology HGB 13.8 g/dL 12.0 - 10/09 MH 16.0 [facility] Hematology HCT 42.8 % 36.0 - 10/09 MH 48.0 [facility] Hematology PLATELETS 256 K/CMM 133 - 450 10/09 MH /mm3 /2011 [facility] Hematology HGB 13.8 g/dL 12.0 - 10/09 MH 16.0 [facility] Hematology HCT 42.8 % 36.0 - 10/09 MH 48.0 [facility] Hematology PLATELETS 256 K/CMM 133 - 450 10/09 MH /mm3 /2011 [facility] Serology RPR Non 10/09 MH Reactive /2011 [facility] Serology RPR Non 10/09 MH Reactive /2011 [facility] Serology RPR Non 10/09 MH Reactive /2011 [facility] Serology RPR Non 10/09 MH Reactive /2011 [facility] Serology RPR Non 10/09 MH Reactive /2011 [facility] Serology RPR Non 10/09 MH Reactive /2011 [facility] Serology RPR Non 10/09 MH Reactive /2011 [facility] Serology RPR Non 10/09 MH Reactive /2011 [facility] Inspector Soldering PAP SMEAR Normal 03/03 [facility] Inspector Soldering PAP SMEAR Normal 03/03 [facility] Inspector Soldering PAP SMEAR Normal 03/03 [facility] Inspector Soldering PAP SMEAR Normal 03/03 [facility] Inspector Soldering PAP SMEAR Normal 03/03 [facility] Inspector Soldering PAP SMEAR Normal 03/03 [facility] Inspector Soldering PAP SMEAR Normal 03/03 [facility] Inspector Soldering PAP SMEAR Normal 03/03 [facility] Vital Signs Vital Sign Value Date Comments Source Height 62 06/17/2014 [facility] Weight 135 06/17/2014 [facility] Temperature Oral (F) 96.5 F 06/17/2014 [facility] Heart Rate 73 06/17/2014 [facility] Systolic (mm Hg) 119 06/17/2014 [facility] Diastolic (mm Hg) 60 06/17/2014 [facility] Weight 135 06/04/2014 [facility] Systolic (mm Hg) 158 06/04/2014 [facility] Diastolic (mm Hg) 72 06/04/2014 [facility] Heart Rate 117 06/04/2014 [facility] Temperature Oral (F) 96.4 F 06/04/2014 [facility] Weight 143 03/04/2014 [facility] Systolic (mm Hg) 146 03/04/2014 [facility] Diastolic (mm Hg) 77 03/04/2014 [facility] Heart Rate 87 03/04/2014 [facility] Temperature Oral (F) 97.2 F 03/04/2014 [facility] Height 62 12/09/2013 [facility] Weight 139 12/09/2013 [facility] Temperature Oral (F) 95.8 F 12/09/2013 [facility] Heart Rate 90 12/09/2013 [facility] Systolic (mm Hg) 158 12/09/2013 [facility] Diastolic (mm Hg) 72 12/09/2013 [facility] Weight 140 07/30/2013 [facility] Temperature Oral (F) 98.2 F 07/30/2013 [facility] Heart Rate 96 07/30/2013 [facility] Systolic (mm Hg) 136 07/30/2013 [facility] Diastolic (mm Hg) 69 07/30/2013 [facility] Weight 141 07/09/2013 [facility] Temperature Oral (F) 97.1 F 07/09/2013 [facility] Systolic (mm Hg) 137 07/09/2013 [facility] Diastolic (mm Hg) 77 07/09/2013 [facility] Heart Rate 84 07/09/2013 [facility] Weight 142 04/28/2013 [facility] Temperature Oral (F) 97.1 F 04/28/2013 [facility] Respitory Rate 18 04/28/2013 [facility] Heart Rate 91 04/28/2013 [facility] Systolic (mm Hg) 152 04/28/2013 [facility] Diastolic (mm Hg) 77 04/28/2013 [facility] Weight 142 04/15/2013 [facility] Temperature Oral (F) 96.7 F 04/15/2013 [facility] Respitory Rate 18 04/15/2013 [facility] Heart Rate 85 04/15/2013 [facility] Systolic (mm Hg) 104 04/15/2013 [facility] Diastolic (mm Hg) 78 04/15/2013 [facility] Weight 142 03/19/2013 [facility] Respitory Rate 18 03/19/2013 [facility] Temperature Oral (F) 100.1 F 03/19/2013 [facility] Heart Rate 142 03/19/2013 [facility] Systolic (mm Hg) 159 03/19/2013 [facility] Diastolic (mm Hg) 84 03/19/2013 [facility] Systolic (mm Hg) 126 03/10/2013 [facility] Group Diastolic (mm Hg) 62 03/10/2013 [facility] Heart Rate 96 03/10/2013 [facility] Temperature Oral (F) 97.8 F 03/10/2013 [facility] Weight 142 03/10/2013 [facility] Weight 142 01/29/2013 [facility] Temperature Oral (F) 96.9 F 01/29/2013 [facility] Respitory Rate 18 01/29/2013 [facility] Systolic (mm Hg) 137 01/29/2013 [facility] Diastolic (mm Hg) 64 01/29/2013 [facility] Heart Rate 75 01/29/2013 [facility] Weight 142 01/11/2013 [facility] Temperature Oral (F) 97.5 F 01/11/2013 [facility] Respitory Rate 18 01/11/2013 [facility] Heart Rate 80 01/11/2013 [facility] Systolic (mm Hg) 125 01/11/2013 [facility] Diastolic (mm Hg) 58 01/11/2013 [facility] Weight 142 12/10/2012 [facility] Temperature Oral (F) 97.1 F 12/10/2012 [facility] Systolic (mm Hg) 148 12/10/2012 [facility] Diastolic (mm Hg) 73 12/10/2012 [facility] Heart Rate 86 12/10/2012 [facility] Weight 144 10/20/2012 [facility] Temperature Oral (F) 96.5 F 10/20/2012 [facility] Respitory Rate 18 10/20/2012 [facility] Heart Rate 72 10/20/2012 [facility] Systolic (mm Hg) 140 10/20/2012 [facility] Diastolic (mm Hg) 73 10/20/2012 [facility] Weight 144 09/22/2012 [facility] Temperature Oral (F) 97.5 F 09/22/2012 [facility] Respitory Rate 18 09/22/2012 [facility] Heart Rate 66 09/22/2012 [facility] Systolic (mm Hg) 132 09/22/2012 [facility] Diastolic (mm Hg) 57 09/22/2012 [facility] Weight 144 08/21/2012 [facility] Respitory Rate 18 08/21/2012 [facility] Temperature Oral (F) 97.2 F 08/21/2012 [facility] Heart Rate 91 08/21/2012 [facility] Systolic (mm Hg) 132 08/21/2012 [facility] Diastolic (mm Hg) 61 08/21/2012 [facility] Weight 145 08/14/2012 [facility] Temperature Oral (F) 97.7 F 08/14/2012 [facility] Heart Rate 80 08/14/2012 [facility] Systolic (mm Hg) 142 08/14/2012 [facility] Diastolic (mm Hg) 85 08/14/2012 [facility] Weight 145 07/21/2012 [facility] Temperature Oral (F) 97.8 F 07/21/2012 [facility] Respitory Rate 18 07/21/2012 [facility] Heart Rate 77 07/21/2012 [facility] Systolic (mm Hg) 125 07/21/2012 [facility] Diastolic (mm Hg) 66 07/21/2012 [facility] Respitory Rate 18 07/06/2012 [facility] Temperature Oral (F) 96.7 F 07/06/2012 [facility] Heart Rate 100 07/06/2012 [facility] Systolic (mm Hg) 148 07/06/2012 [facility] Diastolic (mm Hg) 78 07/06/2012 [facility] Weight 145 07/06/2012 [facility] Weight 148 06/22/2012 [facility] Respitory Rate 18 06/22/2012 [facility] Temperature Oral (F) 98.3 F 06/22/2012 [facility] Heart Rate 108 06/22/2012 [facility] Systolic (mm Hg) 150 06/22/2012 [facility] Diastolic (mm Hg) 57 06/22/2012 [facility] Weight 151 06/03/2012 [facility] Temperature Oral (F) 97.9 F 06/03/2012 [facility] Heart Rate 100 06/03/2012 [facility] Systolic (mm Hg) 129 06/03/2012 [facility] Diastolic (mm Hg) 65 06/03/2012 [facility] Weight 154 05/26/2012 [facility] Temperature Oral (F) 98.0 F 05/26/2012 [facility] Respitory Rate 18 05/26/2012 [facility] Heart Rate 77 05/26/2012 [facility] Systolic (mm Hg) 143 05/26/2012 [facility] Diastolic (mm Hg) 68 05/26/2012 [facility] Weight 154 04/28/2012 [facility] Temperature Oral (F) 97.0 F 04/28/2012 [facility] Respitory Rate 18 04/28/2012 [facility] Heart Rate 93 04/28/2012 [facility] Systolic (mm Hg) 160 04/28/2012 [facility] Diastolic (mm Hg) 82 04/28/2012 [facility] Weight 154 03/31/2012 [facility] Heart Rate 93 03/31/2012 [facility] Systolic (mm Hg) 120 03/31/2012 [facility] Diastolic (mm Hg) 65 03/31/2012 [facility] Respitory Rate 18 03/31/2012 [facility] Temperature Oral (F) 97.9 F 03/31/2012 [facility] Weight 154 02/14/2012 [facility] Respitory Rate 18 02/14/2012 [facility] Heart Rate 75 02/14/2012 [facility] Systolic (mm Hg) 119 02/14/2012 [facility] Diastolic (mm Hg) 64 02/14/2012 [facility] Temperature Oral (F) 97.2 F 02/14/2012 [facility] Weight 154 01/14/2012 [facility] Respitory Rate 18 01/14/2012 [facility] Temperature Oral (F) 97.0 F 01/14/2012 [facility] Heart Rate 87 01/14/2012 [facility] Systolic (mm Hg) 150 01/14/2012 [facility] Diastolic (mm Hg) 83 01/14/2012 [facility] Weight 154 12/17/2011 [facility] Temperature Oral (F) 98.6 F 12/17/2011 [facility] Respitory Rate 18 12/17/2011 [facility] Heart Rate 82 12/17/2011 [facility] Systolic (mm Hg) 128 12/17/2011 [facility] Diastolic (mm Hg) 73 12/17/2011 [facility] Weight 154 11/19/2011 [facility] Temperature Oral (F) 98.0 F 11/19/2011 [facility] Respitory Rate 18 11/19/2011 [facility] Heart Rate 80 11/19/2011 [facility] Systolic (mm Hg) 127 11/19/2011 [facility] Diastolic (mm Hg) 58 11/19/2011 [facility] Weight 154 11/01/2011 [facility] Temperature Oral (F) 96 F 11/01/2011 [facility] Systolic (mm Hg) 156 11/01/2011 [facility] Diastolic (mm Hg) 83 11/01/2011 [facility] Heart Rate 96 11/01/2011 [facility] Systolic (mm Hg) 148 10/22/2011 [facility] Diastolic (mm Hg) 80 10/22/2011 [facility] Temperature Oral (F) 97.4 F 10/22/2011 [facility] Respitory Rate 18 10/22/2011 [facility] Heart Rate 81 10/22/2011 [facility] Weight 152 10/22/2011 [facility] Weight 152.50 10/15/2011 [facility] Temperature Oral (F) 95.1 F 10/15/2011 [facility] Heart Rate 88 10/15/2011 [facility] Systolic (mm Hg) 130 10/15/2011 [facility] Diastolic (mm Hg) 66 10/15/2011 [facility] Height 62 10/09/2011 [facility] Weight 152 10/09/2011 [facility] Temperature Oral (F) 97.6 F 10/09/2011 [facility] Respitory Rate 18 10/09/2011 [facility] Heart Rate 111 10/09/2011 [facility] Systolic (mm Hg) 151 10/09/2011 [facility] Diastolic (mm Hg) 73 10/09/2011 [facility] Encounters Location Location Encounter Encounter Reason Attending ADM DC Status Source Details Type Number For Provider Date Date Visit [facility] Report [id number] James 08/02 08/02 Steve 7060 Gaudencio, /2013 [facility] ED Lab Report [id number] [facility] 12/09 12/09 [facility] 6130 MD Jalen /2013 [facility] [id number] [facility] 12/[facility] 12/29 [facility] Steve 6790 MD Jalen /2013 [facility] Out[facility] Diag [id number] [facility] 12/31 01/01 [facility] Jalen /2013 [facility] [id number] [facility] 03/04 03/04 [facility] Visit 9460 MD Jalen /2014 [facility] Lab Report [id number] [facility] 06/04 06/04 [facility] 5140 MD Jalen /2014 [facility] [id number] [facility] 06/04 06/04 [facility] Visit 0750 MD Jalen /2014 [facility] Lab Report [id number] [facility] 06/17 06/17 [facility] 1750 MD Jalen /2014 [facility] [id number] [facility] 06/17 06/17 MH Steve Visit 8130 MD Jalen /2014 [facility] Lab Report [id number] [facility] 06/17 06/17 MH Steve 2520 MD Jalen /2014 [facility] Outpt Diag [id number] Zenithe 06/17 06/18 [facility] [id number] Fracisco 08/18 08/19 [facility] Outpatient [facility] Anila /2014 [facility] Outpatient [id number] TWYLA 09/26 Active [facility] INES /2014 [facility] Outpatient [id number] YADIEL 10/21 Active [facility] WHITLOCK /2014 [facility] Outpt Diag [id number] Yadiel 10/28 10/29 [facility] Outpatient Services Whitlock Jr /2014 [facility] Outpatient [id number] YADIEL 01/12 Active [facility] Steve Outpatient [id number] NOELLE 02/16 Active [facility] H Outpatient [id number] NOELLE 06/07 Active [facility] [id number] Fracisco 09/27 09/28 [facility] Out[facility] Raijtownsend /2015 [facility] Outpatient [id number] NOELLE 10/06 Active [facility] H Outpatient [id number] LINDSEY GUTIERREZ 10/06 [facility] Outpatient [id number] YADIEL 10/08 Active [facility] Outpatient [id number] YADIEL 05/30 Active [facility] [place] [id number] [place] 06/10 [facility], [id number] [place] /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 , [place] [address], Ph. Procedures Procedure Code Date Perfomer Comments Source mammogram 74330 Completed at [facility] 3 [facility] colonoscopy 82950 [facility] Group mammogram 47925 Completed at [address] Group colonoscopy 21226 Complete [facility] 8 Group mammogram 39791 Normal Bilateral Medical 8 Group vaginal Pap smear 82348 Normal Medical results 8 Group colonoscopy 65000 Diverticulosis Medical 8 Group vaginal Pap smear 17521 Normal Medical results 8 Group mammogram 35913 Normal Bilateral Medical 8 Group colonoscopy 35973 Diverticulosis; Medical 8 patient history Group Appendectomy [facility] Tonsillectomy [facility] Appendectomy [id number] [facility] [place] Bilateral tubal [id number] [facility] ligation [place] Suspension of [id number] OPITashi bladder [place] Tonsillectomy [id number] АННА [place]
--- OUTSIDE RECORDS SUMMARY | 2018-08-21 21:26 | XMS REPORT | Continuity of Care Document ---
:1955 Author Organization [facility] Care Team Providers Name Role Phone JANNETTE Ratliff, James Unavailable Unavailable Insurance Providers Payer name Policy type / Coverage Policy ID Covered republican ID Policy Campbell type A[employer] - [employer] - CHOICE PLUS - NAP (POS II) A[employer] - [employer] - CHOICE PLUS - NAP (POS II) Encounters Encounter Performer Location Date Lab Report James Ratliff APRN [facility] Aug 02, 2013 Allergies, Adverse Reactions, Alerts Type Substance Reaction Status Drug allergy FOSAMAX hurt all over from head to toe, tailbone hurt Active Problems Problem Effective Dates Problem Status GYNECOLOGICAL EXAMINATION ROUTINE Oct 09, 2011 Inactive URINALYSIS, ABNORMAL Oct 09, 2011 Inactive UTERINE PROLAPSE Oct 09, 2011 Inactive SCREENING FOR MLIG NEOP, BREAST, NOS Oct 09, 2011 Inactive PHYSICAL EXAMINATION Oct 09, 2011 Inactive VITAMIN D DEFICIENCY Oct 09, 2011 Inactive EXPOSURE TO COMMUNICABLE DISEASE NOS Oct 09, 2011 Inactive MACROCYTIC ANEMIA Oct 15, 2011 Inactive COLD SORE Oct 15, 2011 Active VITAMIN B12 DEFICIENCY Oct 17, 2011 Active MUSCLE SPASM Nov 01, 2011 Inactive URINARY TRACT INFECTION, RECURRENT Oct 15, 2011 Inactive UTI Mar 31, 2012 Inactive SACROILIITIS, RIGHT Mar 31, 2012 Active DIVERTICULITIS OF COLON Jun 03, 2012 Active ABDOMINAL PAIN, LEFT LOWER QUADRANT Jun 22, 2012 Inactive NEOPLASM UNCERTAIN BHV OTH&UNSPEC DIGESTIVE ORGN July 06, 2012 Inactive IMPAIRED FASTING GLUCOSE July 06, 2012 Inactive DYSLIPIDEMIA July 06, 2012 Active PATELLAR DISLOCATION, RIGHT July 06, 2012 Inactive DIVERTICULOSIS OF COLON Aug 21, 2012 Active SCREENING FOR MLIG NEOP, BREAST, NOS Nov 13, 2012 Inactive ALLERGIC RHINITIS Dec 10, 2012 Active NECK PAIN Jan 29, 2013 Inactive BACK PAIN, THORACIC REGION Jan 29, 2013 Inactive CYST AND PSEUDOCYST OF PANCREAS Jan 29, 2013 Active BACK PAIN, LUMBAR Mar 10, 2013 Inactive HIP PAIN, LEFT Mar 10, 2013 Inactive BRONCHITIS, ACUTE Apr 28, 2013 Inactive ROUTINE GYNECOLOGICAL EXAMINATION July 30, 2013 Active SCREENING FOR MALIGNANT NEOPLASM OF THE CERVIX July 30, 2013 Active LEUKORRHEA July 30, 2013 Active SCREENING, DIABETES MELLITUS July 30, 2013 Active Procedures Date Description Comments Oct 09, 2011 smoking status former smoker Mar 03, 2007 colonoscopy Diverticulosis Mar 03, 2007 mammogram Normal Bilateral Mar 03, 2007 vaginal Pap smear results Normal Mar 03, 2007 colonoscopy Diverticulosis; patient history Mar 03, 2007 vaginal Pap smear results Normal Mar 03, 2007 mammogram Normal Bilateral Oct 15, 2011 smoking status quit Nov 29, 2011 mammogram Completed at [facility] Mar 31, 2012 smoking status former smoker Sep 24, 2007 colonoscopy Complete Aug 13, 2012 colonoscopy Complete Nov 27, 2012 mammogram Completed at [facility] Medications Medication Instructions Start Date Status FLUTICASONE PROPIONATE 50 2 puffs each nostril qd Oct 09, 2011 Active MCG/ACT SUSP PEDIADERM TA 0.1 % KIT apply topically prn rash Oct 09, 2011 Inactive ACYCLOVIR 400 MG TABS 1 tab po tid Oct 15, 2011 Active METAXALONE 800 MG TABS 1 tab po tid prn Nov 01, 2011 Active EVISTA 60 MG TABS 1 po q d Oct 15, 2011 Inactive EVISTA TAB 60MG 1 po daily Oct 15, 2011 Inactive ALENDRONATE SODIUM 70 MG TABS 1 po q week remain upright for Oct 18, 2011 Inactive one hour after taking take on empty stomach LIDODERM 5 % PTCH apply to area that hurts up to Nov 01, 2011 Active 12h/d MOBIC 15 MG TABS 1 tab po qd prn ( Mar 31, 2012 Active inflammation/pain) ETODOLAC 400 MG TABS 1 tab po bid prn Oct 09, 2011 Inactive TRIAMCINOLONE ACETONIDE 0.1 % apply once daily Oct 09, 2011 Inactive CREA FLONASE 50 MCG/ACT SUSP 2 sprays eacnh nostril qd prn Oct 09, 2011 Inactive allergies CIPRO 500 MG TABS 1 tab po bid for 7 days Mar 31, 2012 Inactive ZANTAC 150 MG TABS 1 po qd Jun 03, 2012 Active CIPRO 500 MG TABS 1 tb po bid Jun 03, 2012 Inactive FLAGYL 500 MG TABS 1 tab po tid FOR 10 DAYS Jun 22, 2012 Inactive DIFLUCAN 150 MG TABS 1 dose QWK FOR 2 WEEKS Jun 22, 2012 Inactive BACTRIM DS 800-160 MG TABS 1 bid for 10 days Jun 22, 2012 Inactive CIPRO 500 MG TABS 1 tb po bid Aug 14, 2012 Inactive IBUPROFEN 800 MG TABS One tab PO BID prn pain Dec 10, 2012 Inactive TRAMADOL HCL 50 MG TABS 1 po q6h prn pain Mar 10, 2013 Inactive CIPRO 500 MG TABS 1 tab po bid for 10 days Mar 19, 2013 Inactive CIPRO 500 MG TABS 0ne po bid July 09, 2013 Inactive FLAGYL 500 MG TABS one po tid July 09, 2013 Inactive Immunizations Vaccine Date Status dT (Diphtheria and Tetanus) booster given Mar 03, 2010 completed Vital Signs Date Description Test Result Oct 09, 2011 height E&M - 8302-2 HEIGHT 62 in Oct 09, 2011 weight E&M - 3141-9 WEIGHT 152 lb Oct 09, 2011 temperature E&M TEMPERATURE 97.6 deg f Oct 09, 2011 respiratory rate E&M - 9279-1 RESP RATE 18 /min Oct 09, 2011 pulse rate E&M - 8867-4 PULSE RATE 111 /min Oct 09, 2011 blood pressure, systolic - 8480-6 BP SYSTOLIC 151 mm Hg Oct 09, 2011 blood pressure, diastolic - 8462-4 BP DIASTOLIC 73 mm Hg Oct 15, 2011 weight E&M - 3141-9 WEIGHT 152.50 lb Oct 15, 2011 temperature E&M TEMPERATURE 95.1 deg f Oct 15, 2011 pulse rate E&M - 8867-4 PULSE RATE 88 /min Oct 15, 2011 blood pressure, systolic - 8480-6 BP SYSTOLIC 130 mm Hg Oct 15, 2011 blood pressure, diastolic - 8462-4 BP DIASTOLIC 66 mm Hg Oct 22, 2011 blood pressure, systolic - 8480-6 BP SYSTOLIC 148 mm Hg Oct 22, 2011 blood pressure, diastolic - 8462-4 BP DIASTOLIC 80 mm Hg Oct 22, 2011 temperature E&M TEMPERATURE 97.4 deg f Oct 22, 2011 respiratory rate E&M - 9279-1 RESP RATE 18 /min Oct 22, 2011 pulse rate E&M - 8867-4 PULSE RATE 81 /min Oct 22, 2011 weight E&M - 3141-9 WEIGHT 152 lb Nov 01, 2011 weight E&M - 3141-9 WEIGHT 154 lb Nov 01, 2011 temperature E&M TEMPERATURE 96 deg f Nov 01, 2011 blood pressure, systolic - 8480-6 BP SYSTOLIC 156 mm Hg Nov 01, 2011 blood pressure, diastolic - 8462-4 BP DIASTOLIC 83 mm Hg Nov 01, 2011 pulse rate E&M - 8867-4 PULSE RATE 96 /min Nov 19, 2011 weight E&M - 3141-9 WEIGHT 154 lb Nov 19, 2011 temperature E&M TEMPERATURE 98.0 deg f Nov 19, 2011 respiratory rate E&M - 9279-1 RESP RATE 18 /min Nov 19, 2011 pulse rate E&M - 8867-4 PULSE RATE 80 /min Nov 19, 2011 blood pressure, systolic - 8480-6 BP SYSTOLIC 127 mm Hg Nov 19, 2011 blood pressure, diastolic - 8462-4 BP DIASTOLIC 58 mm Hg Dec 17, 2011 weight E&M - 3141-9 WEIGHT 154 lb Dec 17, 2011 temperature E&M TEMPERATURE 98.6 deg f Dec 17, 2011 respiratory rate E&M - 9279-1 RESP RATE 18 /min Dec 17, 2011 pulse rate E&M - 8867-4 PULSE RATE 82 /min Dec 17, 2011 blood pressure, systolic - 8480-6 BP SYSTOLIC 128 mm Hg Dec 17, 2011 blood pressure, diastolic - 8462-4 BP DIASTOLIC 73 mm Hg Jan 14, 2012 weight E&M - 3141-9 WEIGHT 154 lb Jan 14, 2012 respiratory rate E&M - 9279-1 RESP RATE 18 /min Jan 14, 2012 temperature E&M TEMPERATURE 97.0 deg f Jan 14, 2012 pulse rate E&M - 8867-4 PULSE RATE 87 /min Jan 14, 2012 blood pressure, systolic - 8480-6 BP SYSTOLIC 150 mm Hg Jan 14, 2012 blood pressure, diastolic - 8462-4 BP DIASTOLIC 83 mm Hg Feb 14, 2012 weight E&M - 3141-9 WEIGHT 154 lb Feb 14, 2012 respiratory rate E&M - 9279-1 RESP RATE 18 /min Feb 14, 2012 pulse rate E&M - 8867-4 PULSE RATE 75 /min Feb 14, 2012 blood pressure, systolic - 8480-6 BP SYSTOLIC 119 mm Hg Feb 14, 2012 blood pressure, diastolic - 8462-4 BP DIASTOLIC 64 mm Hg Feb 14, 2012 temperature E&M TEMPERATURE 97.2 deg f Mar 31, 2012 weight E&M - 3141-9 WEIGHT 154 lb Mar 31, 2012 pulse rate E&M - 8867-4 PULSE RATE 93 /min Mar 31, 2012 blood pressure, systolic - 8480-6 BP SYSTOLIC 120 mm Hg Mar 31, 2012 blood pressure, diastolic - 8462-4 BP DIASTOLIC 65 mm Hg Mar 31, 2012 respiratory rate E&M - 9279-1 RESP RATE 18 /min Mar 31, 2012 temperature E&M TEMPERATURE 97.9 deg f Apr 28, 2012 weight E&M - 3141-9 WEIGHT 154 lb Apr 28, 2012 temperature E&M TEMPERATURE 97.0 deg f Apr 28, 2012 respiratory rate E&M - 9279-1 RESP RATE 18 /min Apr 28, 2012 pulse rate E&M - 8867-4 PULSE RATE 93 /min Apr 28, 2012 blood pressure, systolic - 8480-6 BP SYSTOLIC 160 mm Hg Apr 28, 2012 blood pressure, diastolic - 8462-4 BP DIASTOLIC 82 mm Hg May 26, 2012 weight E&M - 3141-9 WEIGHT 154 lb May 26, 2012 temperature E&M TEMPERATURE 98.0 deg f May 26, 2012 respiratory rate E&M - 9279-1 RESP RATE 18 /min May 26, 2012 pulse rate E&M - 8867-4 PULSE RATE 77 /min May 26, 2012 blood pressure, systolic - 8480-6 BP SYSTOLIC 143 mm Hg May 26, 2012 blood pressure, diastolic - 8462-4 BP DIASTOLIC 68 mm Hg Jun 03, 2012 weight E&M - 3141-9 WEIGHT 151 lb Jun 03, 2012 temperature E&M TEMPERATURE 97.9 deg f Jun 03, 2012 pulse rate E&M - 8867-4 PULSE RATE 100 /min Jun 03, 2012 blood pressure, systolic - 8480-6 BP SYSTOLIC 129 mm Hg Jun 03, 2012 blood pressure, diastolic - 8462-4 BP DIASTOLIC 65 mm Hg Jun 22, 2012 weight E&M - 3141-9 WEIGHT 148 lb Jun 22, 2012 respiratory rate E&M - 9279-1 RESP RATE 18 /min Jun 22, 2012 temperature E&M TEMPERATURE 98.3 deg f Jun 22, 2012 pulse rate E&M - 8867-4 PULSE RATE 108 /min Jun 22, 2012 blood pressure, systolic - 8480-6 BP SYSTOLIC 150 mm Hg Jun 22, 2012 blood pressure, diastolic - 8462-4 BP DIASTOLIC 57 mm Hg July 06, 2012 respiratory rate E&M - 9279-1 RESP RATE 18 /min July 06, 2012 temperature E&M TEMPERATURE 96.7 deg f July 06, 2012 pulse rate E&M - 8867-4 PULSE RATE 100 /min July 06, 2012 blood pressure, systolic - 8480-6 BP SYSTOLIC 148 mm Hg July 06, 2012 blood pressure, diastolic - 8462-4 BP DIASTOLIC 78 mm Hg July 06, 2012 weight E&M - 3141-9 WEIGHT 145 lb July 21, 2012 weight E&M - 3141-9 WEIGHT 145 lb July 21, 2012 temperature E&M TEMPERATURE 97.8 deg f July 21, 2012 respiratory rate E&M - 9279-1 RESP RATE 18 /min July 21, 2012 pulse rate E&M - 8867-4 PULSE RATE 77 /min July 21, 2012 blood pressure, systolic - 8480-6 BP SYSTOLIC 125 mm Hg July 21, 2012 blood pressure, diastolic - 8462-4 BP DIASTOLIC 66 mm Hg Aug 14, 2012 weight E&M - 3141-9 WEIGHT 145 lb Aug 14, 2012 temperature E&M TEMPERATURE 97.7 deg f Aug 14, 2012 pulse rate E&M - 8867-4 PULSE RATE 80 /min Aug 14, 2012 blood pressure, systolic - 8480-6 BP SYSTOLIC 142 mm Hg Aug 14, 2012 blood pressure, diastolic - 8462-4 BP DIASTOLIC 85 mm Hg Aug 21, 2012 weight E&M - 3141-9 WEIGHT 144 lb Aug 21, 2012 respiratory rate E&M - 9279-1 RESP RATE 18 /min Aug 21, 2012 temperature E&M TEMPERATURE 97.2 deg f Aug 21, 2012 pulse rate E&M - 8867-4 PULSE RATE 91 /min Aug 21, 2012 blood pressure, systolic - 8480-6 BP SYSTOLIC 132 mm Hg Aug 21, 2012 blood pressure, diastolic - 8462-4 BP DIASTOLIC 61 mm Hg Sep 22, 2012 weight E&M - 3141-9 WEIGHT 144 lb Sep 22, 2012 temperature E&M TEMPERATURE 97.5 deg f Sep 22, 2012 respiratory rate E&M - 9279-1 RESP RATE 18 /min Sep 22, 2012 pulse rate E&M - 8867-4 PULSE RATE 66 /min Sep 22, 2012 blood pressure, systolic - 8480-6 BP SYSTOLIC 132 mm Hg Sep 22, 2012 blood pressure, diastolic - 8462-4 BP DIASTOLIC 57 mm Hg Oct 20, 2012 weight E&M - 3141-9 WEIGHT 144 lb Oct 20, 2012 temperature E&M TEMPERATURE 96.5 deg f Oct 20, 2012 respiratory rate E&M - 9279-1 RESP RATE 18 /min Oct 20, 2012 pulse rate E&M - 8867-4 PULSE RATE 72 /min Oct 20, 2012 blood pressure, systolic - 8480-6 BP SYSTOLIC 140 mm Hg Oct 20, 2012 blood pressure, diastolic - 8462-4 BP DIASTOLIC 73 mm Hg Dec 10, 2012 weight E&M - 3141-9 WEIGHT 142 lb Dec 10, 2012 temperature E&M TEMPERATURE 97.1 deg f Dec 10, 2012 blood pressure, systolic - 8480-6 BP SYSTOLIC 148 mm Hg Dec 10, 2012 blood pressure, diastolic - 8462-4 BP DIASTOLIC 73 mm Hg Dec 10, 2012 pulse rate E&M - 8867-4 PULSE RATE 86 /min Jan 11, 2013 weight E&M - 3141-9 WEIGHT 142 lb Jan 11, 2013 temperature E&M TEMPERATURE 97.5 deg f Jan 11, 2013 respiratory rate E&M - 9279-1 RESP RATE 18 /min Jan 11, 2013 pulse rate E&M - 8867-4 PULSE RATE 80 /min Jan 11, 2013 blood pressure, systolic - 8480-6 BP SYSTOLIC 125 mm Hg Jan 11, 2013 blood pressure, diastolic - 8462-4 BP DIASTOLIC 58 mm Hg Jan 29, 2013 weight E&M - 3141-9 WEIGHT 142 lb Jan 29, 2013 temperature E&M TEMPERATURE 96.9 deg f Jan 29, 2013 respiratory rate E&M - 9279-1 RESP RATE 18 /min Jan 29, 2013 blood pressure, systolic - 8480-6 BP SYSTOLIC 137 mm Hg Jan 29, 2013 blood pressure, diastolic - 8462-4 BP DIASTOLIC 64 mm Hg Jan 29, 2013 pulse rate E&M - 8867-4 PULSE RATE 75 /min Mar 10, 2013 blood pressure, systolic - 8480-6 BP SYSTOLIC 126 mm Hg Mar 10, 2013 blood pressure, diastolic - 8462-4 BP DIASTOLIC 62 mm Hg Mar 10, 2013 pulse rate E&M - 8867-4 PULSE RATE 96 /min Mar 10, 2013 temperature E&M TEMPERATURE 97.8 deg f Mar 10, 2013 weight E&M - 3141-9 WEIGHT 142 lb Mar 19, 2013 weight E&M - 3141-9 WEIGHT 142 lb Mar 19, 2013 respiratory rate E&M - 9279-1 RESP RATE 18 /min Mar 19, 2013 temperature E&M TEMPERATURE 100.1 deg f Mar 19, 2013 pulse rate E&M - 8867-4 PULSE RATE 142 /min Mar 19, 2013 blood pressure, systolic - 8480-6 BP SYSTOLIC 159 mm Hg Mar 19, 2013 blood pressure, diastolic - 8462-4 BP DIASTOLIC 84 mm Hg Apr 15, 2013 weight Jaylyn&Shayne - 3141-9 WEIGHT 142 lb Apr 15, 2013 temperature E&M TEMPERATURE 96.7 deg f Apr 15, 2013 respiratory rate E&M - 9279-1 RESP RATE 18 /min Apr 15, 2013 pulse rate E&M - 8867-4 PULSE RATE 85 /min Apr 15, 2013 blood pressure, systolic - 8480-6 BP SYSTOLIC 104 mm Hg Apr 15, 2013 blood pressure, diastolic - 8462-4 BP DIASTOLIC 78 mm Hg Apr 28, 2013 weight Jaylyn&M - 3141-9 WEIGHT 142 lb Apr 28, 2013 temperature E&M TEMPERATURE 97.1 deg f Apr 28, 2013 respiratory rate E&M - 9279-1 RESP RATE 18 /min Apr 28, 2013 pulse rate E&M - 8867-4 PULSE RATE 91 /min Apr 28, 2013 blood pressure, systolic - 8480-6 BP SYSTOLIC 152 mm Hg Apr 28, 2013 blood pressure, diastolic - 8462-4 BP DIASTOLIC 77 mm Hg July 09, 2013 weight Jaylyn&Shayne - 3141-9 WEIGHT 141 lb July 09, 2013 temperature E&M TEMPERATURE 97.1 deg f July 09, 2013 blood pressure, systolic - 8480-6 BP SYSTOLIC 137 mm Hg July 09, 2013 blood pressure, diastolic - 8462-4 BP DIASTOLIC 77 mm Hg July 09, 2013 pulse rate E&M - 8867-4 PULSE RATE 84 /min July 30, 2013 weight Jaylyn&Shayne - 3141-9 WEIGHT 140 lb July 30, 2013 temperature E&M TEMPERATURE 98.2 deg f July 30, 2013 pulse rate E&M - 8867-4 PULSE RATE 96 /min July 30, 2013 blood pressure, systolic - 8480-6 BP SYSTOLIC 136 mm Hg July 30, 2013 blood pressure, diastolic - 8462-4 BP DIASTOLIC 69 mm Hg Results Date Description Test Name Value Reference Interpretation Status Oct 09, hemoglobin, blood HGB 13.8 g/dL 12.0-16.0 2011Oct 09, hematocrit, blood HCT 42.8 % 36.0-48.0 2011Oct 09, platelet count PLATELETS 256 K/CMM 407-105 3886 /mm3 Jun 22, hemoglobin, blood HGB 13.4 g/dL 12.0-16.0 2012Jun 22, hematocrit, blood HCT 41.2 % 36.0-48.0 2012Jun 22, platelet count PLATELETS 288 K/CMM 840-759 3548 /mm3 Oct 09, hemoglobin, blood HGB 13.8 g/dL 12.0-16.0 2011Oct 09, hematocrit, blood HCT 42.8 % 36.0-48.0 2011Oct 09, platelet count PLATELETS 256 K/CMM 533-245 1420 /mm3 Jun 22, hemoglobin, blood HGB 13.4 g/dL 12.0-16.0 2012Jun 22, hematocrit, blood HCT 41.2 % 36.0-48.0 2012Jun 22, platelet count PLATELETS 288 K/CMM 306-959 3387 /mm3 Aug 02, hemoglobin, blood HGB 13.5 g/dL 12.0-16.0 2013Aug 02, hematocrit, blood HCT 40.3 % 36.0-48.0 2013Aug 02, platelet count PLATELETS 228 K/CMM 221-768 2567 /mm3 Oct 10, urine color UA COLOR YELLOW null YELLOW Normal 2011Oct 10, epithelial cells, EPI CELL UR 6-10 /lpf < OR=5 Abnormal 2011 urine Oct 10, bacteria, urine BACTERIA URN FEW null NONE SEEN Abnormal 2011 microscopy Jun 23, urine color UA COLOR YELLOW null YELLOW Normal 2012Jun 23, epithelial cells, EPI CELL UR 0-5 /lpf < OR=5 2012 urine Jun 23, bacteria, urine BACTERIA URN NONE SEEN NONE SEEN Normal 2012 microscopy null Aug 02, urine color UA COLOR Colorless Yellow 2013 null Aug 02, bacteria, urine BACTERIA URN Occasional None Seen 2013 microscopy null Oct 09, cholesterol, serum CHOLESTEROL 226 mg/dl 120-200 High 2011Oct 09, triglyceride, TRIGLYCERIDE 126 mg/dl 0-200 2011 serum, fasting Oct 09, HDL cholesterol, HDL 57 mg/dl >=35 2011 serum Oct 09, LDL cholesterol, LDL 144 mg/dl 0-129 High 2011 serum Oct 09, thyroid stimulating TSH 1.030 uIU/mL 0.360-3.740 2011 hormone, serum Oct 09, sodium, serum SODIUM 143 MEQ/L 235-978 8560 mmol/L Oct 09, potassium, serum POTASSIUM 4.7 MEQ/L 3.5-5.1 2011 mmol/L Oct 09, urea nitrogen, BUN 16 mg/dL 7-22 2011 blood Oct 09, creatinine, serum CREATININE 0.7 mg/dL 0.5-1.4 2011Oct 09, urea BUN/CREAT 23 null 6-25 2011 nitrogen/creatinine ratio, serum Oct 09, albumin, serum ALBUMIN 4.1 g/dL 3.5-5.0 2011Oct 09, calcium, serum CALCIUM 9.8 mg/dL 8.5-10.5 2011Oct 09, aspartate SGOT (AST) 16 U/L 0-37 2011 aminotransferase (SGOT), serum Oct 09, alanine SGPT (ALT) 19 U/L 0-65 2011 aminotransferase (SGPT), serum Oct 09, alkaline ALK PHOS 122 U/L 39-136 2011 phosphatase, serum Jun 22, sodium, serum SODIUM 139 MEQ/L 221-717 5106 mmol/L Jun 22, potassium, serum POTASSIUM 3.8 MEQ/L 3.5-5.1 2012 mmol/L Jun 22, creatinine, serum CREATININE 0.7 mg/dL 0.5-1.4 2012Jun 22, urea nitrogen, BUN 8 mg/dL 09-21 blood Jun 22, urea BUN/CREAT 11 null 6-25 2012 nitrogen/creatinine ratio, serum Jun 22, albumin, serum ALBUMIN 4.4 g/dL 3.5-5.0 2012Jun 22, calcium, serum CALCIUM 9.6 mg/dL 8.5-10.5 2012Jun 22, alanine SGPT (ALT) 21 U/L 0-65 2012 aminotransferase (SGPT), serum Jun 22, aspartate SGOT (AST) 18 U/L 0-37 2012 aminotransferase (SGOT), serum Jun 22, alkaline ALK PHOS 111 U/L 39-136 2012 phosphatase, serum Oct 09, cholesterol, serum CHOLESTEROL 226 mg/dl 120-200 High 2011Oct 09, triglyceride, TRIGLYCERIDE 126 mg/dl 0-200 2011 serum, fasting Oct 09, HDL cholesterol, HDL 57 mg/dl >=35 2011 serum Oct 09, LDL cholesterol, LDL 144 mg/dl 0-129 High 2011 serum Oct 09, folate, serum FOLATE 25.7 ng/mL >=3.0 2011Oct 09, thyroid stimulating TSH 1.030 uIU/mL 0.360-3.740 2011 hormone, serum Oct 09, sodium, serum SODIUM 143 MEQ/L 940-099 4096 mmol/L Oct 09, potassium, serum POTASSIUM 4.7 MEQ/L 3.5-5.1 2011 mmol/L Oct 09, urea nitrogen, BUN 16 mg/dL -2011 blood Oct 09, creatinine, serum CREATININE 0.7 mg/dL 0.5-1.4 2011Oct 09, urea BUN/CREAT 23 null 6-25 2011 nitrogen/creatinine ratio, serum Oct 09, albumin, serum ALBUMIN 4.1 g/dL 3.5-5.0 2011Oct 09, calcium, serum CALCIUM 9.8 mg/dL 8.5-10.5 2011Oct 09, aspartate SGOT (AST) 16 U/L 0-37 2011 aminotransferase (SGOT), serum Oct 09, alanine SGPT (ALT) 19 U/L 0-65 2011 aminotransferase (SGPT), serum Oct 09, alkaline ALK PHOS 122 U/L 39-136 2011 phosphatase, serum Jun 22, sodium, serum SODIUM 139 MEQ/L 709-438 0321 mmol/L Jun 22, potassium, serum POTASSIUM 3.8 MEQ/L 3.5-5.1 2012 mmol/L Jun 22, creatinine, serum CREATININE 0.7 mg/dL 0.5-1.4 2012Jun 22, urea nitrogen, BUN 8 mg/dL 09-21 blood Jun 22, urea BUN/CREAT 11 null 6-25 2012 nitrogen/creatinine ratio, serum Jun 22, albumin, serum ALBUMIN 4.4 g/dL 3.5-5.0 2012Jun 22, calcium, serum CALCIUM 9.6 mg/dL 8.5-10.5 2012Jun 22, alanine SGPT (ALT) 21 U/L 0-65 2012 aminotransferase (SGPT), serum Jun 22, aspartate SGOT (AST) 18 U/L 0-37 2012 aminotransferase (SGOT), serum Jun 22, alkaline ALK PHOS 111 U/L 39-136 2012 phosphatase, serum July 07, hemoglobin A1C, HGBA1C 5.5 % 2012 blood, as % of total hemoglobin July 07, cholesterol, serum CHOLESTEROL 237 mg/dl 120-200 High 2012July 07, triglyceride, TRIGLYCERIDE 167 mg/dl 0-200 2012 serum, fasting July 07, HDL cholesterol, HDL 72 mg/dl >=35 2012 serum July 07, LDL cholesterol, LDL 132 mg/dl 0-129 High 2012 serum July 07, sodium, serum SODIUM 141 MEQ/L 729-278 6469 mmol/L July 07, potassium, serum POTASSIUM 4.1 MEQ/L 3.5-5.1 2012 mmol/L July 07, creatinine, serum CREATININE 0.7 mg/dL 0.5-1.4 2012July 07, urea nitrogen, BUN 12 mg/dL -2012 blood July 07, urea BUN/CREAT 17 null 6-25 2012 nitrogen/creatinine ratio, serum July 07, albumin, serum ALBUMIN 4.3 g/dL 3.5-5.0 2012July 07, calcium, serum CALCIUM 9.4 mg/dL 8.5-10.5 2012July 07, alanine SGPT (ALT) 23 U/L 0-65 2012 aminotransferase (SGPT), serum July 07, aspartate SGOT (AST) 19 U/L 0-37 2012 aminotransferase (SGOT), serum July 07, alkaline ALK PHOS 109 U/L 39-136 2012 phosphatase, serum Aug 02, hemoglobin A1C, HGBA1C 5.3 % <=5.6 2013 blood, as % of total hemoglobin Aug 02, cholesterol, serum CHOLESTEROL 234 mg/dl <=199 High 2013Aug 02, triglyceride, TRIGLYCERIDE 130 mg/dl <=149 2013 serum, fasting Aug 02, HDL cholesterol, HDL 70 mg/dl >=61 2013 serum Aug 02, LDL cholesterol, LDL 138 mg/dl <=99 High 2014 serum Aug 02, sodium, serum SODIUM 139 MEQ/L 228-831 5290 mmol/L Aug 02, potassium, serum POTASSIUM 4.4 MEQ/L 3.5-5.1 2013 mmol/L Aug 02, creatinine, serum CREATININE 0.6 mg/dL 0.5-1.4 2013Aug 02, urea nitrogen, BUN 12 mg/dL 09-21 blood Aug 02, urea BUN/CREAT 20 null 6-25 2013 nitrogen/creatinine ratio, serum Aug 02, albumin, serum ALBUMIN 4.1 g/dL 3.5-5.0 2013Aug 02, calcium, serum CALCIUM 9.3 mg/dL 8.5-10.5 2013Aug 02, alanine SGPT (ALT) 22 U/L 0-65 2013 aminotransferase (SGPT), serum Aug 02, aspartate SGOT (AST) 25 U/L 0-37 2013 aminotransferase (SGOT), serum Aug 02, alkaline ALK PHOS 114 U/L 39-136 2013 phosphatase, serum Aug 02, thyroid stimulating TSH 0.554 uIU/mL 0.360-3.740 2013 hormone, serum Oct 09, rapid plasma reagin RPR Non Reactive Non 2012 antibody, serum null Reactive Aug 09, rapid plasma reagin RPR Non Reactive Non 2012 antibody, serum null Reactive Mar 03, vaginal Pap smear PAP SMEAR Normal null 2007 results Mar 03, vaginal Pap smear PAP SMEAR Normal null 2007 results
--- OUTSIDE RECORDS SUMMARY | 2018-08-21 21:27 | XMS REPORT | Continuity of Care Document ---
:[address] [facility] Care Team Providers Name Role Phone JANNETTE Ratliff, James Unavailable Unavailable Insurance Providers Payer name Policy type / Coverage Policy ID Covered libertarian ID Policy Campbell type [employer] - [employer] - CHOICE PLUS - NAP (POS II) [employer] - [employer] - CHOICE PLUS - NAP (POS II) Encounters Encounter Performer Location Date Lab Report James Ratliff APRN [facility] Aug 02, 2013 Allergies, Adverse Reactions, Alerts [...] quit Nov 29, 2011 mammogram Completed at [facility] Mar 31, 2012 smoking status former smoker Sep 24, 2007 colonoscopy Complete Aug 13, 2012 colonoscopy Complete Nov 27, 2012 mammogram Completed at [facility] Medications Medication Instructions Start Date Status FLUTICASONE [...] 2011Oct 09, platelet count PLATELETS 256 K/CMM 854-388 7284 /mm3 Jun 22, hemoglobin, blood HGB 13.4 g/dL 12.0-16.0 2012Jun 22, hematocrit, blood HCT 41.2 % 36.0-48.0 2012Jun 22, platelet count PLATELETS 288 K/CMM 777-958 0603 /mm3 Oct 09, hemoglobin, blood HGB 13.8 g/dL 12.0-16.0 2011Oct 09, hematocrit, blood HCT 42.8 % 36.0-48.0 2011Oct 09, platelet count PLATELETS 256 K/CMM 706-792 1004 /mm3 Jun 22, hemoglobin, blood HGB 13.4 g/dL 12.0-16.0 2012Jun 22, hematocrit, blood HCT 41.2 % 36.0-48.0 2012Jun 22, platelet count PLATELETS 288 K/CMM 254-563 2174 /mm3 Aug 02, hemoglobin, blood HGB 13.5 g/dL 12.0-16.0 2013Aug 02, hematocrit, blood HCT 40.3 % 36.0-48.0 2013Aug 02, platelet count PLATELETS 228 K/CMM 207-344 9261 /mm3 Oct 10, urine color UA COLOR [...] Oct 09, sodium, serum SODIUM 143 MEQ/L 223-927 4355 mmol/L Oct 09, potassium, serum POTASSIUM 4.7 [...] Jun 22, sodium, serum SODIUM 139 MEQ/L 739-923 4890 mmol/L Jun 22, potassium, serum POTASSIUM 3.8 [...] Oct 09, sodium, serum SODIUM 143 MEQ/L 888-768 1146 mmol/L Oct 09, potassium, serum POTASSIUM 4.7 [...] Jun 22, sodium, serum SODIUM 139 MEQ/L 374-323 5125 mmol/L Jun 22, potassium, serum POTASSIUM 3.8 [...] July 07, sodium, serum SODIUM 141 MEQ/L [phone] mmol/L July 07, potassium, serum POTASSIUM 4.1 [...] Aug 02, sodium, serum SODIUM 139 MEQ/L 161-288 2916 mmol/L Aug 02, potassium, serum POTASSIUM 4.4 [...]
--- OUTSIDE RECORDS SUMMARY | 2018-08-21 21:27 | XMS REPORT | Continuity of Care Document ---
:1955 Author Organization [facility] Care Team Providers Name Role Phone MD Jalen, Jeramy Unavailable Unavailable Insurance Providers Payer name Policy type / Coverage Policy ID Covered alliance party ID Policy Campbell type AETNA - [employer] - CHOICE PLUS - NAP (POS II) AETNA - [employer] - CHOICE PLUS - NAP (POS II) Encounters Encounter Performer Location Date Lab Report Jeramy Rao MD [facility] Dec 09, 2013 [place] Allergies, Adverse Reactions, Alerts Type Substance Reaction [...] Inactive ROUTINE GYNECOLOGICAL EXAMINATION July 30, 2013 Inactive SCREENING FOR MALIGNANT NEOPLASM OF THE CERVIX July 30, 2013 Inactive LEUKORRHEA July 30, 2013 Active SCREENING, DIABETES MELLITUS July 30, 2013 Active LOW BACK PAIN Dec 09, 2013 Active BREAST SCREENING, UNSPECIFIED Dec 09, 2013 Active TOE PAIN Dec 09, 2013 Active Procedures Date Description Comments Oct [...] quit Nov 29, 2011 mammogram Completed at [facility] Mar 31, 2012 smoking status former smoker Sep 24, 2007 colonoscopy Complete Aug 13, 2012 colonoscopy Complete Nov 27, 2012 mammogram Completed at [facility] Dec 09, 2013 smoking status Former smoker Medications Medication Instructions Start Date Status FLUTICASONE [...] one po tid July 09, 2013 Inactive CIPROFLOXACIN HCL 500 MG TABS 1 tablet twice daily x 7 days Dec 09, 2013 Active for infection Immunizations Vaccine Date Status dT (Diphtheria and [...] 84 mm Hg Apr 15, 2013 weight E&M - 3141-9 WEIGHT 142 lb Apr 15, [...] 78 mm Hg Apr 28, 2013 weight E&M - 3141-9 WEIGHT 142 lb Apr 28, [...] 77 mm Hg July 09, 2013 weight E&M - 3141-9 WEIGHT 141 lb July 09, 2013 temperature E&M TEMPERATURE 97.1 deg f July 09, 2013 blood pressure, systolic - 8480-6 BP SYSTOLIC 137 mm Hg July 09, 2013 blood pressure, diastolic - 8462-4 BP DIASTOLIC 77 mm Hg July 09, 2013 pulse rate E&M - 8867-4 PULSE RATE 84 /min July 30, 2013 weight E&M - 3141-9 WEIGHT 140 lb July 30, 2013 temperature E&M TEMPERATURE 98.2 deg f July 30, 2013 pulse rate E&M - 8867-4 PULSE RATE 96 /min July 30, 2013 blood pressure, systolic - 8480-6 BP SYSTOLIC 136 mm Hg July 30, 2013 blood pressure, diastolic - 8462-4 BP DIASTOLIC 69 mm Hg Dec 09, 2013 height E&M - 8302-2 HEIGHT 62 in Dec 09, 2013 weight E&M - 3141-9 WEIGHT 139 lb Dec 09, 2013 temperature E&M TEMPERATURE 95.8 deg f Dec 09, 2013 pulse rate E&M - 8867-4 PULSE RATE 90 /min Dec 09, 2013 blood pressure, systolic - 8480-6 BP SYSTOLIC 158 mm Hg Dec 09, 2013 blood pressure, diastolic - 8462-4 BP DIASTOLIC 72 mm Hg Results Date Description Test Name Value Reference Interpretation Status Oct 09, hemoglobin, blood HGB 13.8 g/dL 12.0-16.0 2011Oct 09, hematocrit, blood HCT 42.8 % 36.0-48.0 2011Oct 09, platelet count PLATELETS 256 K/CMM 643-401 7988 /mm3 Jun 22, hemoglobin, blood HGB 13.4 g/dL 12.0-16.0 2012Jun 22, hematocrit, blood HCT 41.2 % 36.0-48.0 2012Jun 22, platelet count PLATELETS 288 K/CMM 781-487 7306 /mm3 Oct 09, hemoglobin, blood HGB 13.8 g/dL 12.0-16.0 2011Oct 09, hematocrit, blood HCT 42.8 % 36.0-48.0 2011Oct 09, platelet count PLATELETS 256 K/CMM 378-650 8294 /mm3 Jun 22, hemoglobin, blood HGB 13.4 g/dL 12.0-16.0 2012Jun 22, hematocrit, blood HCT 41.2 % 36.0-48.0 2012Jun 22, platelet count PLATELETS 288 K/CMM 927-459 5069 /mm3 Aug 02, hemoglobin, blood HGB 13.5 g/dL 12.0-16.0 2013Aug 02, hematocrit, blood HCT 40.3 % 36.0-48.0 2013Aug 02, platelet count PLATELETS 228 K/CMM 580-215 7385 /mm3 Dec 09, erythrocyte ESR 6 mm/hr 0-20 2013 sedimentation rate Oct 10, urine color UA COLOR YELLOW [...] URN Occasional None Seen 2013 microscopy null Dec 09, urine color UA COLOR Light Yellow Yellow 2013 null Oct 09, cholesterol, serum CHOLESTEROL 226 mg/dl 120-200 High 2011Oct 09, triglyceride, TRIGLYCERIDE 126 mg/dl 0-200 2011 serum, fasting Oct 09, HDL cholesterol, HDL 57 mg/dl >=35 2011 serum Oct 09, LDL cholesterol, LDL 144 mg/dl 0-129 High 2011 serum Oct 09, thyroid stimulating TSH 1.030 uIU/mL 0.360-3.740 2011 hormone, serum Oct 09, sodium, serum SODIUM 143 MEQ/L 652-573 8558 mmol/L Oct 09, potassium, serum POTASSIUM 4.7 MEQ/L 3.5-5.1 2011 mmol/L Oct 09, urea nitrogen, BUN 16 mg/dL 7-2011 blood Oct 09, creatinine, serum CREATININE 0.7 mg/dL 0.5-1.4 2011Oct 09, urea BUN/CREAT 23 null 6-2011 nitrogen/creatinine ratio, serum Oct 09, albumin, serum ALBUMIN 4.1 g/dL 3.5-5.0 2011Oct 09, calcium, serum CALCIUM 9.8 mg/dL 8.5-10.5 2011Oct 09, aspartate SGOT (AST) 16 U/L 0-37 2011 aminotransferase (SGOT), serum Oct 09, alanine SGPT (ALT) 19 U/L 0-65 2011 aminotransferase (SGPT), serum Oct 09, alkaline ALK PHOS 122 U/L 39-136 2011 phosphatase, serum Jun 22, sodium, serum SODIUM 139 MEQ/L 900-272 2306 mmol/L Jun 22, potassium, serum POTASSIUM 3.8 MEQ/L 3.5-5.1 2012 mmol/L Jun 22, creatinine, serum CREATININE 0.7 mg/dL 0.5-1.4 2012Jun 22, urea nitrogen, BUN 8 mg/dL -2012 blood Jun 22, urea BUN/CREAT 11 null [...] Oct 09, sodium, serum SODIUM 143 MEQ/L 420-190 3605 mmol/L Oct 09, potassium, serum POTASSIUM 4.7 [...] Jun 22, sodium, serum SODIUM 139 MEQ/L 171-107 6944 mmol/L Jun 22, potassium, serum POTASSIUM 3.8 MEQ/L 3.5-5.1 2012 mmol/L Jun 22, creatinine, serum CREATININE 0.7 mg/dL 0.5-1.4 2012Jun 22, urea nitrogen, BUN 8 mg/dL 7-22 2012 blood Jun 22, urea BUN/CREAT 11 null [...] July 07, sodium, serum SODIUM 141 MEQ/L 967-601 9811 mmol/L July 07, potassium, serum POTASSIUM 4.1 MEQ/L 3.5-5.1 2012 mmol/L July 07, creatinine, serum CREATININE 0.7 mg/dL 0.5-1.4 2012July 07, urea nitrogen, BUN 12 mg/dL 09-21 blood July 07, urea BUN/CREAT 17 null [...] LDL cholesterol, LDL 138 mg/dl <=99 High 2013 serum Aug 02, sodium, serum SODIUM 139 MEQ/L 527-832 9032 mmol/L Aug 02, potassium, serum POTASSIUM 4.4 MEQ/L 3.5-5.1 2013 mmol/L Aug 02, creatinine, serum CREATININE 0.6 mg/dL 0.5-1.4 2013Aug 02, urea nitrogen, BUN 12 mg/dL 09-21 blood Aug 02, urea BUN/CREAT 20 null 6-2013 nitrogen/creatinine ratio, serum Aug 02, albumin, serum [...] TSH 0.554 uIU/mL 0.360-3.740 2013 hormone, serum Dec 09, sodium, serum SODIUM 140 MEQ/L 064-117 6451 mmol/L Dec 09, potassium, serum POTASSIUM 4.6 MEQ/L 3.5-5.1 2013 mmol/L Dec 09, creatinine, serum CREATININE 0.8 mg/dL 0.5-1.4 2013Dec 09, urea nitrogen, BUN 13 mg/dL 09-21 blood Dec 09, urea BUN/CREAT 16 null 6-2013 nitrogen/creatinine ratio, serum Dec 09, albumin, serum ALBUMIN 4.4 g/dL 3.5-5.0 2013Dec 09, calcium, serum CALCIUM 9.7 mg/dL 8.5-10.5 2013Dec 09, alanine SGPT (ALT) 21 U/L 0-65 2013 aminotransferase (SGPT), serum Dec 09, aspartate SGOT (AST) 17 U/L 0-37 2013 aminotransferase (SGOT), serum Dec 09, alkaline ALK PHOS 112 U/L 39-136 2014 phosphatase, serum Oct 09, rapid plasma reagin RPR Non Reactive Non 2011 antibody, serum null Reactive Oct 09, rapid plasma reagin RPR Non Reactive Non 2011 antibody, serum null Reactive Dec 09, antinuclear ION Positive null Negative Abnormal 2014 antibody Mar 03, vaginal Pap smear PAP SMEAR Normal null 2007 results Mar 03, vaginal Pap smear PAP SMEAR Normal null 2007 results
--- OUTSIDE RECORDS SUMMARY | 2018-08-21 21:28 | XMS REPORT | Continuity of Care Document ---
:1955 Author Organization [facility] Care Team Providers Name Role Phone MD Jalen, Jeramy Unavailable Unavailable Insurance Providers Payer name Policy type / Coverage Policy ID Covered democrat ID Policy Campbell type AETNA - [employer] - CHOICE PLUS - NAP (POS II) AETNA - [employer] - CHOICE PLUS - NAP (POS II) Encounters Encounter Performer Location Date Lab Report Jeramy Rao MD [facility] Dec 29, 2013 Allergies, Adverse Reactions, Alerts Type Substance [...] quit Nov 29, 2011 mammogram Completed at [facility] Mar 31, 2012 smoking status former smoker Sep 24, 2007 colonoscopy Complete Aug 13, 2012 colonoscopy Complete Nov 27, 2012 mammogram Completed at [facility] Dec 09, 2013 smoking status Former smoker [...] daily x 7 days Dec 09, 2013 Inactive for infection Immunizations Vaccine Date Status dT [...] 2011Oct 09, platelet count PLATELETS 256 K/CMM 473-963 9914 /mm3 Jun 22, hemoglobin, blood HGB 13.4 g/dL 12.0-16.0 2012Jun 22, hematocrit, blood HCT 41.2 % 36.0-48.0 2012Jun 22, platelet count PLATELETS 288 K/CMM 864-339 6515 /mm3 Oct 09, hemoglobin, blood HGB 13.8 g/dL 12.0-16.0 2011Oct 09, hematocrit, blood HCT 42.8 % 36.0-48.0 2011Oct 09, platelet count PLATELETS 256 K/CMM 636-724 1914 /mm3 Jun 22, hemoglobin, blood HGB 13.4 g/dL 12.0-16.0 2012Jun 22, hematocrit, blood HCT 41.2 % 36.0-48.0 2012Jun 22, platelet count PLATELETS 288 K/CMM 721-183 4468 /mm3 Aug 02, hemoglobin, blood HGB 13.5 g/dL 12.0-16.0 2013Aug 02, hematocrit, blood HCT 40.3 % 36.0-48.0 2013Aug 02, platelet count PLATELETS 228 K/CMM 263-344 9193 /mm3 Dec 09, erythrocyte ESR 6 mm/hr [...] Oct 09, sodium, serum SODIUM 143 MEQ/L 962-481 5543 mmol/L Oct 09, potassium, serum POTASSIUM 4.7 [...] Jun 22, sodium, serum SODIUM 139 MEQ/L 218-771 1174 mmol/L Jun 22, potassium, serum POTASSIUM 3.8 [...] Oct 09, sodium, serum SODIUM 143 MEQ/L 221-402 1454 mmol/L Oct 09, potassium, serum POTASSIUM 4.7 [...] Jun 22, sodium, serum SODIUM 139 MEQ/L 478-513 3532 mmol/L Jun 22, potassium, serum POTASSIUM 3.8 MEQ/L 3.5-5.1 2012 mmol/L Jun 22, creatinine, serum CREATININE 0.7 mg/dL 0.5-1.4 2012Jun 22, urea nitrogen, BUN 8 mg/dL 7-2012 blood Jun 22, urea BUN/CREAT 11 null [...] July 07, sodium, serum SODIUM 141 MEQ/L 856-107 6965 mmol/L July 07, potassium, serum POTASSIUM 4.1 [...] Aug 02, sodium, serum SODIUM 139 MEQ/L 652-879 2016 mmol/L Aug 02, potassium, serum POTASSIUM 4.4 [...] Dec 09, sodium, serum SODIUM 140 MEQ/L 771-830 3783 mmol/L Dec 09, potassium, serum POTASSIUM 4.6 MEQ/L 3.5-5.1 2013 mmol/L Dec 09, creatinine, serum CREATININE 0.8 mg/dL 0.5-1.4 2013Dec 09, urea nitrogen, BUN 13 mg/dL -2013 blood Dec 09, urea BUN/CREAT 16 null 6-25 2013 nitrogen/creatinine ratio, serum Dec 09, albumin, serum ALBUMIN 4.4 g/dL 3.5-5.0 2013Dec 09, calcium, serum CALCIUM 9.7 mg/dL 8.5-10.5 2013Dec 09, alanine SGPT (ALT) 21 U/L 0-65 2013 aminotransferase (SGPT), serum Dec 09, aspartate SGOT (AST) 17 U/L 0-37 2013 aminotransferase (SGOT), serum Dec 09, alkaline ALK PHOS 112 U/L 39-136 2013 phosphatase, serum Oct 09, rapid plasma reagin [...]
--- OUTSIDE RECORDS SUMMARY | 2018-08-21 21:29 | XMS REPORT | Continuity of Care Document ---
:1955 Author Organization [facility] Care Team Providers Name Role Phone MD Jalen, Jeramy Unavailable Unavailable Insurance Providers Payer name Policy type / Coverage Policy ID Covered republican ID Policy Campbell type AETNA - [employer] - CHOICE PLUS - NAP (POS II) AETNA - [employer] - CHOICE PLUS - NAP (POS II) Encounters Encounter Performer Location Date Office Visit Jeramy Rao MD [facility] Mar 04, 2014 [place] Allergies, Adverse Reactions, Alerts Type Substance Reaction [...] Active TOE PAIN Dec 09, 2013 Active SINUSITIS Mar 04, 2014 Active Procedures Date Description Comments Oct 09, [...] quit Nov 29, 2011 mammogram Completed at [facility] Mar 31, 2012 smoking status former smoker Sep 24, 2007 colonoscopy Complete Aug 13, 2012 colonoscopy Complete Nov 27, 2012 mammogram Completed at [facility] Dec 09, 2013 smoking status Former smoker Mar 04, 2014 smoking status Former smoker Medications Medication Instructions Start Date Status PEDIADERM TA 0.1 % KIT apply topically [...] days Dec 09, 2013 Inactive for infection AZITHROMYCIN 250 MG TABS 2 tablets daily for 1 day, then Mar 04, 2014 Inactive 1 tablet daily for 4 days FLUTICASONE PROPIONATE 50 Two sprays each nostril daily Oct 09, 2011 Active MCG/ACT SUSP Immunizations Vaccine Date Status dT (Diphtheria and [...] - 8462-4 BP DIASTOLIC 72 mm Hg Mar 04, 2014 weight E&M - 3141-9 WEIGHT 143 lb Mar 04, 2014 blood pressure, systolic - 8480-6 BP SYSTOLIC 146 mm Hg Mar 04, 2014 blood pressure, diastolic - 8462-4 BP DIASTOLIC 77 mm Hg Mar 04, 2014 pulse rate E&M - 8867-4 PULSE RATE 87 /min Mar 04, 2014 temperature E&M TEMPERATURE 97.2 deg f Results Date Description Test Name Value Reference Interpretation Status Oct 09, hemoglobin, blood HGB 13.8 g/dL 12.0-16.0 2011Oct 09, hematocrit, blood HCT 42.8 % 36.0-48.0 2011Oct 09, platelet count PLATELETS 256 K/CMM 587-832 5107 /mm3 Jun 22, hemoglobin, blood HGB 13.4 g/dL 12.0-16.0 2012Jun 22, hematocrit, blood HCT 41.2 % 36.0-48.0 2012Jun 22, platelet count PLATELETS 288 K/CMM 379-821 8357 /mm3 Oct 09, hemoglobin, blood HGB 13.8 g/dL 12.0-16.0 2011Oct 09, hematocrit, blood HCT 42.8 % 36.0-48.0 2011Oct 09, platelet count PLATELETS 256 K/CMM 055-034 5816 /mm3 Jun 22, hemoglobin, blood HGB 13.4 g/dL 12.0-16.0 2012Jun 22, hematocrit, blood HCT 41.2 % 36.0-48.0 2012Jun 22, platelet count PLATELETS 288 K/CMM 941-021 3307 /mm3 Aug 02, hemoglobin, blood HGB 13.5 g/dL 12.0-16.0 2013Aug 02, hematocrit, blood HCT 40.3 % 36.0-48.0 2013Aug 02, platelet count PLATELETS 228 K/CMM 186-210 3475 /mm3 Dec 09, erythrocyte ESR 6 mm/hr [...] Oct 09, sodium, serum SODIUM 143 MEQ/L 682-527 2882 mmol/L Oct 09, potassium, serum POTASSIUM 4.7 [...] Jun 22, sodium, serum SODIUM 139 MEQ/L 959-002 0181 mmol/L Jun 22, potassium, serum POTASSIUM 3.8 [...] Oct 09, sodium, serum SODIUM 143 MEQ/L 541-784 9789 mmol/L Oct 09, potassium, serum POTASSIUM 4.7 [...] Jun 22, sodium, serum SODIUM 139 MEQ/L 479-858 1095 mmol/L Jun 22, potassium, serum POTASSIUM 3.8 [...] 07, HDL cholesterol, HDL 72 mg/dl >=35 2012July 07, LDL cholesterol, LDL 132 mg/dl 0-129 High 2012July 07, sodium, serum SODIUM 141 MEQ/L 439-804 7453 mmol/L July 07, potassium, serum POTASSIUM 4.1 [...] Aug 02, sodium, serum SODIUM 139 MEQ/L 229-929 5376 mmol/L Aug 02, potassium, serum POTASSIUM 4.4 MEQ/L 3.5-5.1 2013 mmol/L Aug 02, creatinine, serum CREATININE 0.6 mg/dL 0.5-1.4 2013Aug 02, urea nitrogen, BUN 12 mg/dL -2013 blood Aug 02, urea BUN/CREAT 20 null [...] Dec 09, sodium, serum SODIUM 140 MEQ/L 666-551 6559 mmol/L Dec 09, potassium, serum POTASSIUM 4.6 [...] Reactive Non 2012 antibody, serum null Reactive Oct 09, rapid plasma reagin RPR Non Reactive Non 2011 antibody, serum null Reactive Dec 09, antinuclear ION Positive null Negative Abnormal 2014 antibody Mar 03, vaginal Pap smear PAP SMEAR Normal null 2007 results Mar 03, vaginal Pap smear PAP SMEAR Normal null 2007 results
--- OUTSIDE RECORDS SUMMARY | 2018-08-21 21:30 | XMS REPORT | Continuity of Care Document ---
:1955 Author Organization [facility] Care Team Providers Name Role Phone MD Jalen, Jeramy Unavailable Unavailable Insurance Providers Payer name Policy type / Coverage Policy ID Covered republican ID Policy Campbell type AETNA - A[employer]CEL - CHOICE PLUS - NAP (POS II) AETNA - A[employer]CEL - CHOICE PLUS - NAP (POS II) Encounters Encounter Performer Location Date Office Visit Jeramy Rao MD [facility] Jun 04, 2014 [place] Allergies, Adverse Reactions, Alerts Type Substance Reaction [...] Inactive DIVERTICULOSIS OF COLON Aug 21, 2012 Inactive SCREENING FOR MLIG NEOP, BREAST, NOS Nov [...] 30, 2013 Inactive LEUKORRHEA July 30, 2013 Inactive SCREENING, DIABETES MELLITUS July 30, 2013 Inactive LOW BACK PAIN Dec 09, 2013 Active BREAST SCREENING, UNSPECIFIED Dec 09, 2013 Inactive TOE PAIN Dec 09, 2013 Inactive SINUSITIS Mar 04, 2014 Inactive HYPERTENSION, BENIGN ESSENTIAL Jun 04, 2014 Active VITAMIN D DEFICIENCY Jun 04, 2014 Active SKIN LESION Jun 04, 2014 Active Procedures Date Description Comments [...] 29, 2011 mammogram Completed at [facility] Mar 31, 2012 smoking status former smoker Sep 24, 2007 colonoscopy Complete Aug 13, 2012 colonoscopy Complete Nov 27, 2012 mammogram Completed at [facility] Dec 09, 2013 smoking status Former smoker Mar 04, 2014 smoking status Former smoker Jun 04, 2014 smoking status Former smoker Medications Medication Instructions Start Date Status PEDIADERM TA 0.1 % KIT apply topically prn rash Oct 09, 2011 Inactive EVISTA 60 MG TABS 1 po q [...] daily Oct 09, 2011 Active MCG/ACT SUSP TRAMADOL HCL 50 MG TABS 1 tablet every 8 hours as Jun 04, 2014 Active needed for pain ACYCLOVIR 400 MG TABS 1 tab po up to 5x daily x 7 Oct 15, 2011 Active days METOPROLOL SUCCINATE ER 25 MG 1 tablet daily for blood Jun 04, 2014 Active [id number] pressure and heart METAXALONE 800 MG TABS 1 tab po tid prn Nov 01, 2011 Inactive [facility] GLUCOSAMINE-CHONDROITIN TABS per bottle directions Jun 04, 2014 Active CALTRATE 600+D TABS 1-2 tabs daily Jun 04, 2014 Active Immunizations Vaccine Date Status dT (Diphtheria and [...] HEIGHT 62 in Dec 09, 2013 weight Jaylyn&Shayne - 3141-9 WEIGHT 139 lb Dec 09, 2013 temperature E&M TEMPERATURE 95.8 deg f Dec 09, 2013 pulse rate E&M - 8867-4 PULSE RATE 90 /min Dec 09, 2013 blood pressure, systolic - 8480-6 BP SYSTOLIC 158 mm Hg Dec 09, 2013 blood pressure, diastolic - 8462-4 BP DIASTOLIC 72 mm Hg Mar 04, 2014 weight Jaylyn&Shayne - 3141-9 WEIGHT 143 lb Mar 04, 2014 blood pressure, systolic - 8480-6 BP SYSTOLIC 146 mm Hg Mar 04, 2014 blood pressure, diastolic - 8462-4 BP DIASTOLIC 77 mm Hg Mar 04, 2014 pulse rate E&M - 8867-4 PULSE RATE 87 /min Mar 04, 2014 temperature E&M TEMPERATURE 97.2 deg f Jun 04, 2014 weight Jaylyn&Shayne - 3141-9 WEIGHT 135 lb Jun 04, 2014 blood pressure, systolic - 8480-6 BP SYSTOLIC 158 mm Hg Jun 04, 2014 blood pressure, diastolic - 8462-4 BP DIASTOLIC 72 mm Hg Jun 04, 2014 pulse rate E&M - 8867-4 PULSE RATE 117 /min Jun 04, 2014 temperature E&M TEMPERATURE 96.4 deg f Results Date Description Test Name Value Reference Interpretation Status Oct 09, hemoglobin, blood HGB 13.8 g/dL 12.0-16.0 2011Oct 09, hematocrit, blood HCT 42.8 % 36.0-48.0 2011Oct 09, platelet count PLATELETS 256 K/CMM 525-845 5283 /mm3 Jun 22, hemoglobin, blood HGB 13.4 g/dL 12.0-16.0 2012Jun 22, hematocrit, blood HCT 41.2 % 36.0-48.0 2012Jun 22, platelet count PLATELETS 288 K/CMM 681-375 3160 /mm3 Oct 09, hemoglobin, blood HGB 13.8 g/dL 12.0-16.0 2011Oct 09, hematocrit, blood HCT 42.8 % 36.0-48.0 2011Oct 09, platelet count PLATELETS 256 K/CMM 846-599 5255 /mm3 Jun 22, hemoglobin, blood HGB 13.4 g/dL 12.0-16.0 2012Jun 22, hematocrit, blood HCT 41.2 % 36.0-48.0 2012Jun 22, platelet count PLATELETS 288 K/CMM 516-768 6535 /mm3 Aug 02, hemoglobin, blood HGB 13.5 g/dL 12.0-16.0 2013Aug 02, hematocrit, blood HCT 40.3 % 36.0-48.0 2013Aug 02, platelet count PLATELETS 228 K/CMM 165-467 2666 /mm3 Dec 09, erythrocyte ESR 6 mm/hr [...] Oct 09, sodium, serum SODIUM 143 MEQ/L 493-866 0313 mmol/L Oct 09, potassium, serum POTASSIUM 4.7 [...] Jun 22, sodium, serum SODIUM 139 MEQ/L 489-124 1183 mmol/L Jun 22, potassium, serum POTASSIUM 3.8 [...] Oct 09, sodium, serum SODIUM 143 MEQ/L 255-873 6690 mmol/L Oct 09, potassium, serum POTASSIUM 4.7 [...] Jun 22, sodium, serum SODIUM 139 MEQ/L 492-931 8134 mmol/L Jun 22, potassium, serum POTASSIUM 3.8 [...] July 07, sodium, serum SODIUM 141 MEQ/L 996-914 3406 mmol/L July 07, potassium, serum POTASSIUM 4.1 [...] Aug 02, sodium, serum SODIUM 139 MEQ/L 768-424 3229 mmol/L Aug 02, potassium, serum POTASSIUM 4.4 [...] Dec 09, sodium, serum SODIUM 140 MEQ/L 001-300 1286 mmol/L Dec 09, potassium, serum POTASSIUM 4.6 MEQ/L 3.5-5.1 2013 mmol/L Dec 09, creatinine, serum CREATININE 0.8 mg/dL 0.5-1.4 2013Dec 09, urea nitrogen, BUN 13 mg/dL 7-22 2013 blood Dec 09, urea BUN/CREAT 16 null [...]
--- OUTSIDE RECORDS SUMMARY | 2018-08-21 21:31 | XMS REPORT | Continuity of Care Document ---
:1955 Author Organization [facility] Care Team Providers Name Role Phone MD Jalen, Jeramy Unavailable Unavailable Insurance Providers Payer name Policy type / Coverage Policy ID Covered libertarian ID Policy Campbell type AETNA - AEXCEL - CHOICE PLUS - NAP (POS II) AETNA - AEXCEL - CHOICE PLUS - NAP (POS II) Encounters Encounter Performer Location Date Lab Report Jeramy Rao MD [facility] Jun 04, 2014 [place] Allergies, Adverse Reactions, Alerts Type Substance Reaction [...] quit Nov 29, 2011 mammogram Completed at [facility] Mar 31, 2012 smoking status former smoker Sep 24, 2007 colonoscopy Complete Aug 13, 2012 colonoscopy Complete Nov 27, 2012 mammogram Completed at [facility] Dec 09, 2013 smoking status Former [...] daily for blood Jun 04, 2014 Active [id number] pressure and heart METAXALONE 800 MG TABS [...] 2011Oct 09, platelet count PLATELETS 256 K/CMM 881-402 6768 /mm3 Jun 22, hemoglobin, blood HGB 13.4 g/dL 12.0-16.0 2012Jun 22, hematocrit, blood HCT 41.2 % 36.0-48.0 2012Jun 22, platelet count PLATELETS 288 K/CMM 016-219 7670 /mm3 Oct 09, hemoglobin, blood HGB 13.8 g/dL 12.0-16.0 2011Oct 09, hematocrit, blood HCT 42.8 % 36.0-48.0 2011Oct 09, platelet count PLATELETS 256 K/CMM 434-691 3043 /mm3 Jun 22, hemoglobin, blood HGB 13.4 g/dL 12.0-16.0 2012Jun 22, hematocrit, blood HCT 41.2 % 36.0-48.0 2012Jun 22, platelet count PLATELETS 288 K/CMM 042-867 0003 /mm3 Aug 02, hemoglobin, blood HGB 13.5 g/dL 12.0-16.0 2013Aug 02, hematocrit, blood HCT 40.3 % 36.0-48.0 2013Aug 02, platelet count PLATELETS 228 K/CMM 227-971 8432 /mm3 Dec 09, erythrocyte ESR 6 mm/hr 0-20 2013 sedimentation rate Jun 04, hemoglobin, blood HGB 13.4 g/dL 12.0-16.0 2014Jun 04, hematocrit, blood HCT 40.6 % 36.0-48.0 2014Jun 04, platelet count PLATELETS 220 K/CMM 734-360 8721 /mm3 Oct 10, urine color UA COLOR [...] UA COLOR Light Yellow Yellow 2013 null Jun 04, urine color UA COLOR Light Yellow Yellow 2014 null Oct 09, cholesterol, serum CHOLESTEROL 226 mg/dl 120-200 High 2011Oct 09, triglyceride, TRIGLYCERIDE 126 mg/dl 0-200 2011 serum, fasting Oct 09, HDL cholesterol, HDL 57 mg/dl >=35 2011 serum Oct 09, LDL cholesterol, LDL 144 mg/dl 0-129 High 2011 serum Oct 09, thyroid stimulating TSH 1.030 uIU/mL 0.360-3.740 2012 hormone, serum Oct 09, sodium, serum SODIUM 143 MEQ/L 147-974 4045 mmol/L Oct 09, potassium, serum POTASSIUM 4.7 [...] Jun 22, sodium, serum SODIUM 139 MEQ/L 380-650 0670 mmol/L Jun 22, potassium, serum POTASSIUM 3.8 [...] Oct 09, sodium, serum SODIUM 143 MEQ/L 938-512 2333 mmol/L Oct 09, potassium, serum POTASSIUM 4.7 [...] Jun 22, sodium, serum SODIUM 139 MEQ/L 087-268 9231 mmol/L Jun 22, potassium, serum POTASSIUM 3.8 [...] July 07, sodium, serum SODIUM 141 MEQ/L 219-250 9464 mmol/L July 07, potassium, serum POTASSIUM 4.1 [...] 02, hemoglobin A1C, HGBA1C 5.3 % <=5.6 2014 blood, as % of total hemoglobin Aug 02, cholesterol, serum CHOLESTEROL 234 mg/dl <=199 High 2013Aug 02, triglyceride, TRIGLYCERIDE 130 mg/dl <=149 2014 serum, fasting Aug 02, HDL cholesterol, HDL 70 mg/dl >=61 2013 serum Aug 02, LDL cholesterol, LDL 138 mg/dl <=99 High 2013 serum Aug 02, sodium, serum SODIUM 139 MEQ/L 861-249 8747 mmol/L Aug 02, potassium, serum POTASSIUM 4.4 [...] Dec 09, sodium, serum SODIUM 140 MEQ/L 060-778 6138 mmol/L Dec 09, potassium, serum POTASSIUM 4.6 MEQ/L 3.5-5.1 2013 mmol/L Dec 09, creatinine, serum CREATININE 0.8 mg/dL 0.5-1.4 2013Dec 09, urea nitrogen, BUN 13 mg/dL 7-2013 blood Dec 09, urea BUN/CREAT 16 null 6-25 2013 nitrogen/creatinine ratio, serum Dec 09, albumin, serum ALBUMIN 4.4 g/dL 3.5-5.0 2013Dec 09, calcium, serum CALCIUM 9.7 mg/dL 8.5-10.5 2013Dec 09, alanine SGPT (ALT) 21 U/L 0-65 2013 aminotransferase (SGPT), serum Dec 09, aspartate SGOT (AST) 17 U/L 0-37 2013 aminotransferase (SGOT), serum Dec 09, alkaline ALK PHOS 112 U/L 39-136 2013 phosphatase, serum Jun 04, sodium, serum SODIUM 135 MEQ/L 800-375 6171 mmol/L Jun 04, potassium, serum POTASSIUM 4.3 MEQ/L 3.5-5.1 2014 mmol/L Jun 04, creatinine, serum CREATININE 0.9 mg/dL 0.5-1.4 2014Jun 04, urea nitrogen, BUN 16 mg/dL 7-2014 blood Jun 04, urea BUN/CREAT 18 null 6-25 2014 nitrogen/creatinine ratio, serum Jun 04, albumin, serum ALBUMIN 4.4 g/dL 3.5-5.0 2014Jun 04, calcium, serum CALCIUM 9.6 mg/dL 8.5-10.5 2014Jun 04, alanine SGPT (ALT) 22 U/L 0-65 2014 aminotransferase (SGPT), serum Jun 04, aspartate SGOT (AST) 24 U/L 0-37 2014 aminotransferase (SGOT), serum Jun 04, alkaline ALK PHOS 98 U/L 39-136 2014 phosphatase, serum Oct 09, rapid plasma reagin RPR Non Reactive Non 2011 antibody, serum null Reactive Oct 09, rapid plasma reagin RPR Non Reactive Non 2012 antibody, serum null Reactive Dec 09, antinuclear ION Positive null Negative Abnormal 2014 antibody Mar 03, vaginal Pap smear PAP SMEAR Normal null 2007 results Mar 03, vaginal Pap smear PAP SMEAR Normal null 2007 results
--- OUTSIDE RECORDS SUMMARY | 2018-08-21 21:32 | XMS REPORT | Continuity of Care Document ---
:1955 Author Organization [facility] Care Team Providers Name Role Phone MD Jalen, Jeramy Unavailable Unavailable Insurance Providers Payer name Policy type / Coverage Policy ID Covered alliance party ID Policy Campbell type AETNA - AEXCEL - CHOICE PLUS - NAP (POS II) AETNA - AEXCEL - CHOICE PLUS - NAP (POS II) Encounters Encounter Performer Location Date Office Visit Jeramy Rao MD [facility] Jun 17, 2014 [place] Allergies, Adverse Reactions, Alerts Type Substance Reaction [...] Active SKIN LESION Jun 04, 2014 Active DIARRHEA Jun 17, 2014 Active GASTROENTERITIS, VIRAL, ACUTE Jun 17, 2014 Active ABDOMINAL PAIN, EPIGASTRIC Jun 17, 2014 Active Procedures Date Description Comments Oct [...] quit Nov 29, 2011 mammogram Completed at [facility] Mar 31, 2012 smoking status former smoker Sep 24, 2007 colonoscopy Complete Aug 13, 2012 colonoscopy Complete Nov 27, 2012 mammogram Completed at [facility] Dec 09, 2013 smoking status Former smoker Mar 04, 2014 smoking status Former smoker Jun 04, 2014 smoking status Former smoker Jun 17, 2014 smoking status Former smoker Medications Medication [...] daily for blood Jun 04, 2014 Active [id number] pressure and heart METAXALONE 800 MG TABS 1 tab po tid prn Nov 01, 2011 Inactive [facility] GLUCOSAMINE-CHONDROITIN TABS per bottle directions Jun 04, 2014 Active CALTRATE 600+D TABS 1-2 tabs daily Jun 04, 2014 Active ZOFRAN ODT 4 MG TBDP 1-2 tabs po q8 prn Jun 17, 2014 Active nausea/Vomiting Immunizations Vaccine Date Status dT (Diphtheria and [...] 97.2 deg f Jun 04, 2014 weight E&M - 3141-9 WEIGHT 135 lb Jun 04, 2014 blood pressure, systolic - 8480-6 BP SYSTOLIC 158 mm Hg Jun 04, 2014 blood pressure, diastolic - 8462-4 BP DIASTOLIC 72 mm Hg Jun 04, 2014 pulse rate E&M - 8867-4 PULSE RATE 117 /min Jun 04, 2014 temperature E&M TEMPERATURE 96.4 deg f Jun 17, 2014 height E&M - 8302-2 HEIGHT 62 in Jun 17, 2014 weight E&M - 3141-9 WEIGHT 135 lb Jun 17, 2014 temperature E&M TEMPERATURE 96.5 deg f Jun 17, 2014 pulse rate E&M - 8867-4 PULSE RATE 73 /min Jun 17, 2014 blood pressure, systolic - 8480-6 BP SYSTOLIC 119 mm Hg Jun 17, 2014 blood pressure, diastolic - 8462-4 BP DIASTOLIC 60 mm Hg Results Date Description Test Name Value Reference Interpretation Status Oct 09, hemoglobin, blood HGB 13.8 g/dL 12.0-16.0 2011Oct 09, hematocrit, blood HCT 42.8 % 36.0-48.0 2011Oct 09, platelet count PLATELETS 256 K/CMM 466-708 3117 /mm3 Jun 22, hemoglobin, blood HGB 13.4 g/dL 12.0-16.0 2012Jun 22, hematocrit, blood HCT 41.2 % 36.0-48.0 2012Jun 22, platelet count PLATELETS 288 K/CMM 210-055 0434 /mm3 Oct 09, hemoglobin, blood HGB 13.8 g/dL 12.0-16.0 2011Oct 09, hematocrit, blood HCT 42.8 % 36.0-48.0 2011Oct 09, platelet count PLATELETS 256 K/CMM 541-647 5300 /mm3 Jun 22, hemoglobin, blood HGB 13.4 g/dL 12.0-16.0 2012Jun 22, hematocrit, blood HCT 41.2 % 36.0-48.0 2012Jun 22, platelet count PLATELETS 288 K/CMM 456-088 5312 /mm3 Aug 02, hemoglobin, blood HGB 13.5 g/dL 12.0-16.0 2013Aug 02, hematocrit, blood HCT 40.3 % 36.0-48.0 2013Aug 02, platelet count PLATELETS 228 K/CMM 453-471 5498 /mm3 Dec 09, erythrocyte ESR 6 mm/hr 0-20 2013 sedimentation rate Jun 04, hemoglobin, blood HGB 13.4 g/dL 12.0-16.0 2014Jun 04, hematocrit, blood HCT 40.6 % 36.0-48.0 2014Jun 04, platelet count PLATELETS 220 K/CMM 513-254 5652 /mm3 Jun 17, hemoglobin, blood HGB 12.9 g/dL 12.0-16.0 2014Jun 17, hematocrit, blood HCT 39.7 % 36.0-48.0 2014Jun 17, platelet count PLATELETS 269 K/CMM 554-297 1311 /mm3 Oct 10, urine color UA COLOR [...] UA COLOR Light Yellow Yellow 2014 null Jun 17, urine color UA COLOR Light Yellow Yellow 2014 null Jun 17, bacteria, urine BACTERIA URN Occasional None Seen 2014 microscopy null Oct 09, cholesterol, serum CHOLESTEROL 226 mg/dl 120-200 High 2011Oct 09, triglyceride, TRIGLYCERIDE 126 mg/dl 0-200 2011 serum, fasting Oct 09, HDL cholesterol, HDL 57 mg/dl >=35 2011 serum Oct 09, LDL cholesterol, LDL 144 mg/dl 0-129 High 2011 serum Oct 09, thyroid stimulating TSH 1.030 uIU/mL 0.360-3.740 2011 hormone, serum Oct 09, sodium, serum SODIUM 143 MEQ/L 456-426 0417 mmol/L Oct 09, potassium, serum POTASSIUM 4.7 MEQ/L 3.5-5.1 2011 mmol/L Oct 09, urea nitrogen, BUN 16 mg/dL -22 2011 blood Oct 09, creatinine, serum CREATININE [...] Jun 22, sodium, serum SODIUM 139 MEQ/L 715-848 4067 mmol/L Jun 22, potassium, serum POTASSIUM 3.8 [...] Oct 09, sodium, serum SODIUM 143 MEQ/L 927-421 9448 mmol/L Oct 09, potassium, serum POTASSIUM 4.7 [...] Jun 22, sodium, serum SODIUM 139 MEQ/L 521-068 7841 mmol/L Jun 22, potassium, serum POTASSIUM 3.8 [...] 2012July 07, sodium, serum SODIUM 141 MEQ/L 509-819 9331 mmol/L July 07, potassium, serum POTASSIUM 4.1 [...] Aug 02, sodium, serum SODIUM 139 MEQ/L 947-446 1039 mmol/L Aug 02, potassium, serum POTASSIUM 4.4 [...] Dec 09, sodium, serum SODIUM 140 MEQ/L 038-276 8096 mmol/L Dec 09, potassium, serum POTASSIUM 4.6 [...] Jun 04, sodium, serum SODIUM 135 MEQ/L 586-422 3073 mmol/L Jun 04, potassium, serum POTASSIUM 4.3 MEQ/L 3.5-5.1 2014 mmol/L Jun 04, creatinine, serum CREATININE 0.9 mg/dL 0.5-1.4 2014Jun 04, urea nitrogen, BUN 16 mg/dL 7-22 2014 blood Jun 04, urea BUN/CREAT 18 null 6-25 2014 nitrogen/creatinine ratio, serum Jun 04, albumin, serum ALBUMIN 4.4 g/dL 3.5-5.0 2014Jun 04, calcium, serum CALCIUM 9.6 mg/dL 8.5-10.5 2014Jun 04, alanine SGPT (ALT) 22 U/L 0-65 2014 aminotransferase (SGPT), serum Jun 04, aspartate SGOT (AST) 24 U/L 0-37 2014 aminotransferase (SGOT), serum Jun 04, alkaline ALK PHOS 98 U/L 39-136 2014 phosphatase, serum Jun 17, amylase, serum AMYLASE 65 U/L 25-115 2014Jun 17, magnesium, serum MAGNESIUM 1.5 mg/dL 1.8-2.4 Low 2014Jun 17, sodium, serum SODIUM 139 MEQ/L 446-440 3552 mmol/L Jun 17, potassium, serum POTASSIUM 3.7 MEQ/L 3.5-5.1 2014 mmol/L Jun 17, creatinine, serum CREATININE 0.8 mg/dL 0.5-1.4 2014Jun 17, urea nitrogen, BUN 10 mg/dL 7-22 2014 blood Jun 17, urea BUN/CREAT 12 null 6-25 2014 nitrogen/creatinine ratio, serum Jun 17, albumin, serum ALBUMIN 4.1 g/dL 3.5-5.0 2014Jun 17, calcium, serum CALCIUM 9.2 mg/dL 8.5-10.5 2014Jun 17, alanine SGPT (ALT) 26 U/L 0-65 2014 aminotransferase (SGPT), serum Jun 17, aspartate SGOT (AST) 25 U/L 0-37 2014 aminotransferase (SGOT), serum Jun 17, alkaline ALK PHOS 87 U/L 39-136 2014 phosphatase, serum Oct 09, rapid plasma reagin RPR Non Reactive Non 2011 antibody, serum null Reactive Oct 09, rapid plasma reagin RPR Non Reactive Non 2011 antibody, serum null Reactive Dec 09, antinuclear ION Positive null Negative Abnormal 2014 antibody Mar 03, vaginal Pap smear PAP SMEAR Normal null 2008 results Mar 03, vaginal Pap smear PAP SMEAR Normal null 2007 results
--- OUTSIDE RECORDS SUMMARY | 2018-08-21 21:33 | XMS REPORT | Continuity of Care Document ---
:1955 Author Organization [facility] Care Team Providers Name Role Phone MD Jalen, Jeramy Unavailable Unavailable Insurance Providers Payer name Policy type / Coverage Policy ID Covered constitution party ID Policy Campbell type AETNA - AEXCEL - CHOICE PLUS - NAP (POS II) AETNA - AEXCEL - CHOICE PLUS - NAP (POS II) Encounters Encounter Performer Location Date Lab Report Jeramy Rao MD [facility] Jun 17, 2014 [place] Allergies, Adverse Reactions, Alerts Type Substance Reaction [...] quit Nov 29, 2011 mammogram Completed at [facility] Mar 31, 2012 smoking status former smoker Sep 24, 2007 colonoscopy Complete Aug 13, 2012 colonoscopy Complete Nov 27, 2012 mammogram Completed at [facility] Dec 09, 2013 smoking status Former [...] daily for blood Jun 04, 2014 Active [id number] pressure and heart METAXALONE 800 MG TABS [...] 2011Oct 09, platelet count PLATELETS 256 K/CMM 434-946 6373 /mm3 Jun 22, hemoglobin, blood HGB 13.4 g/dL 12.0-16.0 2012Jun 22, hematocrit, blood HCT 41.2 % 36.0-48.0 2012Jun 22, platelet count PLATELETS 288 K/CMM 251-088 5018 /mm3 Oct 09, hemoglobin, blood HGB 13.8 g/dL 12.0-16.0 2011Oct 09, hematocrit, blood HCT 42.8 % 36.0-48.0 2011Oct 09, platelet count PLATELETS 256 K/CMM 540-640 1546 /mm3 Jun 22, hemoglobin, blood HGB 13.4 g/dL 12.0-16.0 2012Jun 22, hematocrit, blood HCT 41.2 % 36.0-48.0 2012Jun 22, platelet count PLATELETS 288 K/CMM 236-459 4404 /mm3 Aug 02, hemoglobin, blood HGB 13.5 g/dL 12.0-16.0 2013Aug 02, hematocrit, blood HCT 40.3 % 36.0-48.0 2013Aug 02, platelet count PLATELETS 228 K/CMM 824-304 3453 /mm3 Dec 09, erythrocyte ESR 6 mm/hr 0-20 2013 sedimentation rate Jun 04, hemoglobin, blood HGB 13.4 g/dL 12.0-16.0 2014Jun 04, hematocrit, blood HCT 40.6 % 36.0-48.0 2014Jun 04, platelet count PLATELETS 220 K/CMM 512-235 6651 /mm3 Jun 17, hemoglobin, blood HGB 12.9 g/dL 12.0-16.0 2014Jun 17, hematocrit, blood HCT 39.7 % 36.0-48.0 2014Jun 17, platelet count PLATELETS 269 K/CMM 603-741 6143 /mm3 Oct 10, urine color UA COLOR [...] Oct 09, sodium, serum SODIUM 143 MEQ/L 047-926 7137 mmol/L Oct 09, potassium, serum POTASSIUM 4.7 [...] Jun 22, sodium, serum SODIUM 139 MEQ/L 828-705 1799 mmol/L Jun 22, potassium, serum POTASSIUM 3.8 [...] Oct 09, sodium, serum SODIUM 143 MEQ/L 079-340 6140 mmol/L Oct 09, potassium, serum POTASSIUM 4.7 [...] Jun 22, sodium, serum SODIUM 139 MEQ/L 703-999 4423 mmol/L Jun 22, potassium, serum POTASSIUM 3.8 [...] 2012July 07, sodium, serum SODIUM 141 MEQ/L 237-473 3297 mmol/L July 07, potassium, serum POTASSIUM 4.1 [...] Aug 02, sodium, serum SODIUM 139 MEQ/L 888-443 3999 mmol/L Aug 02, potassium, serum POTASSIUM 4.4 [...] Dec 09, sodium, serum SODIUM 140 MEQ/L 823-328 5308 mmol/L Dec 09, potassium, serum POTASSIUM 4.6 [...] Jun 04, sodium, serum SODIUM 135 MEQ/L 505-461 8214 mmol/L Jun 04, potassium, serum POTASSIUM 4.3 [...] 2014Jun 17, sodium, serum SODIUM 139 MEQ/L 130-412 5308 mmol/L Jun 17, potassium, serum POTASSIUM 3.7 [...]
--- OUTSIDE RECORDS SUMMARY | 2018-08-21 21:34 | XMS REPORT | Summary of Care ---
:1955 Author Encounter HQ Charlener_michael(REYNALDO) [id number] Date(s): 08/18/14 - 08/18/14 [facility] Outpatient Imaging [address] [id number]- [phone] Discharge Disposition: Home Physician Attending: Fracisco High MD Vital Signs No data available for this section Problem List No data available for this section Allergies, Adverse Reactions, Alerts Substance Reaction Severity Status alendronate1 Active 1Data migrated from [employer] on 07/01/14. Originally documented as FOSAMAX. hurt all over from head to toe, tailbone hurt Medications No data available for this section Results No data available for this section Immunizations No data available for this section Procedures No data available for this section Social History No data available for this section Assessment and Plan No data available for this section
--- OUTSIDE RECORDS SUMMARY | 2018-08-21 21:34 | XMS REPORT | Summary of Care ---
:1955 Author Organization [facility] Outpatient Imaging [place] Address [address] [place] [place], [place] [address]- Encounter HQ Kaylantr_michael(FIN) [id number] Date(s): 09/28/15 - 09/28/15 [facility] Outpatient Imaging [address], [address] [place] [address]- [phone] Discharge Disposition: Home or Self Care Attending Physician: Fracisco High MD Vital Signs No data available for this section Problem List Condition Effective Dates Status Health Status Informant Acute bronchitis1 04/28/13 Resolved Allergic rhinitis(Confirmed) Active Benign essential hypertension2 06/04/14 Active Cyst and Pseudocyst of Active Pancreas(Confirmed) Diarrhea3 06/17/14 Active Disorder of skin4 06/04/14 Active Epigastric pain5 06/17/14 Active Exposure to communicable disease6 10/09/11 Resolved GERD without esophagitis(Confirmed) Active Hyperlipidemia(Confirmed) Active LUMBAGO(Confirmed) Active Urinary tract infectious disease7 03/31/12 Resolved Viral gastroenteritis8 06/17/14 Resolved Vitamin D deficiency9 06/04/14 Active 1Data migrated from [employer] on 09/16/14.2Data migrated from [employer] on 09/07/14.3Data migrated from [employer] on 09/07/14.4Data migrated from [employer] on 09/07/14.5Data migrated from [employer] on 09/07/14.6Data migrated from [employer] on 09/16/14.7Data migrated from [employer] on .8Data migrated from [employer] on 09/07/14.9Data migrated from [employer] on 09/07/14. Allergies, Adverse Reactions, Alerts Substance Reaction Severity Status alendronate1 Active 1Data migrated from [employer] on 07/01/14. Originally documented as FOSAMAX. hurt all over from head to toe, tailbone hurt Medications No data available for this section Results No data available for this section Immunizations Given and Recorded Vaccine Date Status Refusal Reason tetanus-diphtheria toxoids1 03/03/10 Given 1Result Comment: historical. Migrated from [facility] ; Data migrated from [employer] on 04/04/2015. Procedures Procedure Date Related Diagnosis Body Site Appendectomy Bilateral tubal ligation Suspension of bladder Tonsillectomy Social History Social History Type Response Smoking Status Former smoker; Exposure to Tobacco Smoke None; Cigarette Smoking Last 365 Days No; Reg Smoking Cessation Counseling No Assessment and Plan No data available for this section
--- OUTSIDE RECORDS SUMMARY | 2018-08-21 21:34 | XMS REPORT | Continuity of Care Document ---
:1955 Author Organization [facility] Care Team Providers Name Role Phone MD Jalen, Jeramy Unavailable Unavailable Insurance Providers Payer name Policy type / Coverage Policy ID Covered democrat ID Policy Campbell type AETNA - AEXCEL - CHOICE PLUS - NAP (POS II) AETNA - AEXCEL - CHOICE PLUS - NAP (POS II) Encounters Encounter Performer Location Date Lab Report Jeramy Rao MD [facility] Jun 17, 2014 [place] Allergies, Adverse Reactions, Alerts Type Substance Reaction [...] quit Nov 29, 2011 mammogram Completed at [facility] Mar 31, 2012 smoking status former smoker Sep 24, 2007 colonoscopy Complete Aug 13, 2012 colonoscopy Complete Nov 27, 2012 mammogram Completed at [facility] Dec 09, 2013 smoking status Former [...] daily for blood Jun 04, 2014 Active [id number] pressure and heart METAXALONE 800 MG TABS [...] 2011Oct 09, platelet count PLATELETS 256 K/CMM 455-705 6692 /mm3 Jun 22, hemoglobin, blood HGB 13.4 g/dL 12.0-16.0 2012Jun 22, hematocrit, blood HCT 41.2 % 36.0-48.0 2012Jun 22, platelet count PLATELETS 288 K/CMM 038-904 0619 /mm3 Oct 09, hemoglobin, blood HGB 13.8 g/dL 12.0-16.0 2011Oct 09, hematocrit, blood HCT 42.8 % 36.0-48.0 2011Oct 09, platelet count PLATELETS 256 K/CMM 576-906 5860 /mm3 Jun 22, hemoglobin, blood HGB 13.4 g/dL 12.0-16.0 2012Jun 22, hematocrit, blood HCT 41.2 % 36.0-48.0 2012Jun 22, platelet count PLATELETS 288 K/CMM 735-093 8909 /mm3 Aug 02, hemoglobin, blood HGB 13.5 g/dL 12.0-16.0 2013Aug 02, hematocrit, blood HCT 40.3 % 36.0-48.0 2013Aug 02, platelet count PLATELETS 228 K/CMM 898-484 9690 /mm3 Dec 09, erythrocyte ESR 6 mm/hr 0-20 2013 sedimentation rate Jun 04, hemoglobin, blood HGB 13.4 g/dL 12.0-16.0 2014Jun 04, hematocrit, blood HCT 40.6 % 36.0-48.0 2014Jun 04, platelet count PLATELETS 220 K/CMM 943-292 3206 /mm3 Jun 17, hemoglobin, blood HGB 12.9 g/dL 12.0-16.0 2014Jun 17, hematocrit, blood HCT 39.7 % 36.0-48.0 2014Jun 17, platelet count PLATELETS 269 K/CMM 682-146 3170 /mm3 Oct 10, urine color UA COLOR [...] Oct 09, sodium, serum SODIUM 143 MEQ/L 057-407 7024 mmol/L Oct 09, potassium, serum POTASSIUM 4.7 [...] Jun 22, sodium, serum SODIUM 139 MEQ/L 340-953 4366 mmol/L Jun 22, potassium, serum POTASSIUM 3.8 [...] Oct 09, sodium, serum SODIUM 143 MEQ/L 857-371 0608 mmol/L Oct 09, potassium, serum POTASSIUM 4.7 [...] Jun 22, sodium, serum SODIUM 139 MEQ/L 640-526 0553 mmol/L Jun 22, potassium, serum POTASSIUM 3.8 [...] 2012July 07, sodium, serum SODIUM 141 MEQ/L 833-493 5419 mmol/L July 07, potassium, serum POTASSIUM 4.1 [...] Aug 02, sodium, serum SODIUM 139 MEQ/L 794-960 0881 mmol/L Aug 02, potassium, serum POTASSIUM 4.4 [...] Dec 09, sodium, serum SODIUM 140 MEQ/L 404-611 3617 mmol/L Dec 09, potassium, serum POTASSIUM 4.6 [...] Jun 04, sodium, serum SODIUM 135 MEQ/L 297-958 0323 mmol/L Jun 04, potassium, serum POTASSIUM 4.3 [...] 2014Jun 17, sodium, serum SODIUM 139 MEQ/L 968-550 8002 mmol/L Jun 17, potassium, serum POTASSIUM 3.7 [...]
--- OUTSIDE RECORDS SUMMARY | 2018-08-21 21:34 | XMS REPORT | Encounter Summary ---
:1955 Author Reason for Visit Medical Complaint Instructions Discussion Note pt not seen. out of scope. Patient educational handouts: No information available. Plan of Care Reminders Provider Appointments None recorded. Lab None recorded. Referral None recorded. Procedures None recorded. Surgeries None recorded. Imaging None recorded. Medications Name Start Date alendronate 70 mg tablet TAKE 1 TABLET ONCE A WEEK ORALLY 30 DAY(S) Calcium 500 + D Fluarix Quad 5693-6260 (PF) 60 mcg (15 mcg x 4)/0.5 mL IM syringe TO BE ADMINISTERED BY PHARMACIST FOR IMMUNIZATION fluticasone 50 mcg/actuation nasal spray,suspension Inhale 2 sprays every day by intranasal route as directed to both nostrils for 14 days. lidocaine 5 % topical patch meloxicam 15 mg tablet TAKE 1 TABLET BY MOUTH EVERY DAY metaxalone 800 mg tablet TAKE 1 TABLET BY MOUTH TWICE A DAY NEEDED FOR 90 DAYS metoprolol succinate ER 25 mg tablet,extended release 24 hr TAKE 1 TABLET BY MOUTH DAILY tramadol 50 mg tablet TAKE 1 TABLET BY MOUTH EVERY 12 HOURS NEEDED PAIN Zantac 150 mg tablet Take 1 tablet twice a day by oral route. Medications Administered None recorded. Vitals None recorded. Lab Results None recorded. Allergies Code Code System Name Reaction Severity Onset 526166 RxNorm Actonel 880832 RxNorm Fosamax Problems Name Status Onset Date Source Herpes Labialis Active Encounter Conjunctivitis Active Encounter Acute Sinusitis Active Encounter Acute Upper Respiratory Infection Active Encounter Urinary Tract Infectious Disease Active Encounter Vaginitis and Vulvovaginitis Active Encounter Cellulitis of Face Active Encounter Contact Dermatitis Active Encounter Elevated Blood Pressure Active Encounter Procedures Date Name Performed by Appendectomy Information not available Tonsillectomy Information not available Vaccine List Vaccine Type influenza, injectable, quadrivalent 12/23/20130.5 mL 12/28/20140.5 mL influenza, seasonal, injectable 12/09/2011 12/17/2012 Tdap 03/02/2010 12/28/20140.5 mL Social History Smoking Status Former Smoker Past Encounters 06/10/2016 [place] Alejo NP, S: [address] [facility] , [place] [address], Ph. History of Present Illness None recorded. Review of Systems Basic Reported By: Patient Physical Exam Adult Basic, Adult Female Complete Reported By: Patient
--- OUTSIDE RECORDS SUMMARY | 2018-08-21 21:34 | XMS REPORT | Summary of Care ---
:1955 Author Organization [facility] Outpatient Imaging [address] [address]- Encounter HQ Charlener_michael(FIN) [id number] Date(s): 10/28/14 - 10/28/14 [facility] Outpatient Imaging [address] [address]- [phone] Discharge Disposition: Home Attending Physician: Augustus Luque MD Vital Signs No data available for this section Problem List Condition Effective Dates Status Health Status Informant Acute bronchitis1 04/28/13 Resolved Allergic rhinitis(Confirmed) Active Benign essential hypertension2 06/04/14 Active Cyst and Pseudocyst of Active Pancreas(Confirmed) Diarrhea3 06/17/14 Active Disorder of skin4 06/04/14 Active Epigastric pain5 06/17/14 Active Exposure to communicable disease6 10/09/11 Resolved Hyperlipidemia(Confirmed) Active LUMBAGO(Confirmed) Active Urinary tract infectious [...] No data available for this section Procedures Procedure Date Related Diagnosis Body Site Appendectomy Bilateral tubal ligation Suspension of bladder Tonsillectomy Social History Social History Type Response Smoking Status Former smoker; Exposure to Tobacco Smoke None; Cigarette Smoking Last 365 Days No; Reg Smoking Cessation Counseling No Assessment and Plan No data available for this section
--- OUTSIDE RECORDS SUMMARY | 2018-08-21 21:34 | XMS REPORT | Summary of Care ---
:1955 Author Encounter HQ Charlener_michael(REYNALDO) [id number] Date(s): 06/17/14 - 06/17/14 [facility] Outpatient Imaging [address] [address]- [phone] Discharge Disposition: Home Physician Attending: Jeramy Rao MD Vital Signs No data available for this section Problem List No data available for this section Allergies, Adverse Reactions, Alerts No data available for this section Medications No data available for this section Results No data available for this section Immunizations No data available for this section Procedures No data available for this section Social History No data available for this section Assessment and Plan No data available for this section
--- OUTSIDE RECORDS SUMMARY | 2018-08-21 21:34 | XMS REPORT | Summary of Care ---
:1955 Author Encounter MAURICE Sanchez(REYNALDO) [id number] Date(s): 12/31/13 - 12/31/13 [facility] Outpatient Imaging [address] Final: Other Screening Mammogram Discharge Disposition: Home Physician Attending: Jeramy Rao MD Reason for Visit V76.12 - SCREEN MAMMOGRA Problem List No data available for this section Allergies, Adverse Reactions, Alerts No data available for this section Medications No data available for this section Medications Administered During Your Visit No data available for this section Immunizations No data available for this section
[2018-08-21 22:02] LABS: Urine Bacteria <20 /HPF (<20); Urine Culture Reflex Order NOT NEEDED; Urine Mucus 1+ /HPF (NONE SEEN); Urine RBC NONE SEEN /HPF (NONE SEEN)
[2018-08-21 22:03] LABS: Urine Blood TRACE (NEG); Urine Glucose NEGATIVE (NEG); Urine Protein NEGATIVE (NEG); Urine pH 5.5 (5.0-7.0)
[2018-08-21] MEDS ORDERED: DIAZEPAM 5 MG TABLET ONE (22:16)
--- NOTE | 2018-08-21 22:54 | EDPHYS ---
Physician Documentation [facility] Name: Reyna Corey Age: 63 yrs Sex: Female : 1955 Arrival Date: 08/21/2018 Time: 21:19 Bed 19 Private MD: ED Physician Chrissy Ortega HPI: 08/21 21:40 This 63 yrs old Female presents to ER via Ambulatory with complaints of Stiff snw Neck, Neck Pain, <24hrs Old, Throat feel thick, dehydration. 21:40 The symptoms are located on the base of the skull. Onset: The symptoms/episode snw began/occurred suddenly, yesterday. Context: The problem was sustained at home, at a upon awakening, The neck injury/problem resulted from from unknown cause. Associated signs and symptoms: The patient has no apparent associated signs or symptoms. Location: left trapezius and right trapezius. Severity of symptoms: At their worst the symptoms were moderate. The patient has experienced a previous episode. The patient has been recently seen by a physician: Elysia Kapadia [facility] - GI for gastritis/hemorrhoids, given flagyl and cipro. Historical: - Allergies: 21:37 Fosamax; jd3 21:37 Activella; jd3 - Home Meds: 21:37 blood pressure med [Active]; jd3 - PMHx: 21:37 Hypertension; jd3 - PSHx: 21:37 Appendectomy; Tubal ligation; Tonsillectomy; jd3 - Immunization history:: Adult Immunizations up to date. - Social history:: Smoking status: Patient/guardian denies using tobacco, but has a distant history of tobacco abuse. - Ebola Screening: : Patient negative for fever greater than or equal to 101.5 degrees Fahrenheit, and additional compatible Ebola Virus Disease symptoms. ROS: 21:37 Constitutional: Negative for fever, chills, and weight loss, Eyes: Negative for injury, snw pain, redness, and discharge, ENT: Negative for injury, pain, and discharge, Neck: Negative for injury, pain, and swelling, Cardiovascular: Negative for chest pain, palpitations, and edema, Respiratory: Negative for shortness of breath, cough, wheezing, and pleuritic chest pain, Abdomen/GI: Negative for abdominal pain, nausea, vomiting, diarrhea, and constipation, Back: Negative for injury and pain, : Negative for injury, bleeding, discharge, and swelling, MS/Extremity: Negative for injury and deformity, + posterior neck and shoulder tension, decreased flexion since yesterday morning. Pt finished Flagyl and Cipro yesterday for recent gastritis/hemorrhoids. Pt states she had a similar problem when she took fosamax, actonel Skin: Negative for injury, rash, and discoloration, Neuro: Negative for headache, weakness, numbness, tingling, and seizure. Exam: 21:35 Constitutional: This is a well developed, well nourished patient who is awake, alert, snw and in no acute distress. Head/Face: Normocephalic, atraumatic. Eyes: Pupils equal round and reactive to light, extra-ocular motions intact. Lids and lashes normal. Conjunctiva and sclera are non-icteric and not injected. Cornea within normal limits. Periorbital areas with no swelling, redness, or edema. ENT: Nares patent. No nasal discharge, no septal abnormalities noted. Tympanic membranes are normal and external auditory canals are clear. Oropharynx with no redness, swelling, or masses, exudates, or evidence of obstruction, uvula midline. Mucous membranes moist. Chest/axilla: Normal chest wall appearance and motion. Nontender with no deformity. No lesions are appreciated. Cardiovascular: Regular rate and rhythm with a normal S1 and S2. No gallops, murmurs, or rubs. Normal PMI, no JVD. No pulse deficits. Respiratory: Lungs have equal breath sounds bilaterally, clear to auscultation and percussion. No rales, rhonchi or wheezes noted. No increased work of breathing, no retractions or nasal flaring. Abdomen/GI: Soft, non-tender, with normal bowel sounds. No distension or tympany. No guarding or rebound. No evidence of tenderness throughout. Back: No spinal tenderness. No costovertebral tenderness. Full range of motion. Skin: Warm, dry with normal turgor. Normal color with no rashes, no lesions, and no evidence of cellulitis. MS/ Extremity: Pulses equal, no cyanosis. Neurovascular intact. Full, normal range of motion. Neuro: Awake and alert, GCS 15, oriented to person, place, time, and situation. Cranial nerves II-XII grossly intact. Motor strength 5/5 in all extremities. Sensory grossly intact. Cerebellar exam normal. Normal gait. Psych: Awake, alert, with orientation to person, place and time. Behavior, mood, and affect are within normal limits. 21:35 Neck: External neck: is normal, C-spine: appears grossly normal, ROM/movement: pain, that is moderate, with flexion, limited range of motion, with flexion, Meningeal signs: are not present, nuchal rigidity, is not appreciated, Lymph nodes: no appreciated lymphadenopathy. Vital Signs: 21:37 BP 134 / 58; Pulse 93; Resp 16 S; Temp 98.3(O); Pulse Ox 97% on R/A; Weight 63.5 kg jd3 (R); Height 5 ft. 2 in. (157.48 cm) (R); Pain 4/10; 22:29 BP 125 / 57; Pulse 86; Resp 16; Temp 98.1(O); Pulse Ox 95% on R/A; Pain 4/10; ed1 23:00 BP 123 / 64; Pulse 79; Resp 17; Pulse Ox 100% on R/A; Pain 2/10; ed1 21:37 Body Mass Index 25.61 (63.50 kg, 157.48 cm) jd3 MDM: 21:28 Patient medically screened. snw 22:53 Data reviewed: vital signs, nurses notes. Data interpreted: Pulse oximetry: on room air snw is 95 %. Interpretation: acceptable. Counseling: I had a detailed discussion with the patient and/or guardian regarding: the historical points, exam findings, and any diagnostic results supporting the discharge/admit diagnosis, lab results, the need for outpatient follow up, to return to the emergency department if symptoms worsen or persist or if there are any questions or concerns that arise at home. Special discussion: Based on the history and exam findings, there is no indication for further emergent testing or inpatient evaluation. I discussed with the patient/guardian the need to see the primary care provider for further evaluation of the symptoms. 08/21 21:34 Order name: Urine Microscopic Only; Complete Time: 22:04 snw 08/21 21:49 Order name: Urine Dipstick--Ancillary (enter results); Complete Time: 22:04 ar5 08/21 21:34 Order name: Urine Dipstick-Ancillary (obtain specimen); Complete Time: 21:59 snw Administered Medications: 22:03 Drug: Valium 5 mg Route: PO; ed1 23:02 Follow up: Response: No adverse reaction; Pain is decreased ed1 Disposition: 08/22 03:00 Co-signature as Attending Physician, Chrissy Ortega MD. ma2 Disposition: 08/21/18 22:53 Discharged to Home. Impression: Radiculopathy, cervical region, Torticollis. - Condition is Stable. - Discharge Instructions: Cervical Radiculopathy, Acute Torticollis, Adult, Cryotherapy, Heat Therapy, Neck Exercises, Radicular Pain. - Prescriptions for orphenadrine citrate 100 mg Oral Tablet Sustained Release - take 1 tablet by ORAL route 2 times per day As needed; 20 tablet. - Work release form, Medication Reconciliation Form, Thank You Letter, Antibiotic Education, Prescription Opioid Use form. - Follow up: Private Physician; When: 2 - 3 days; Reason: Recheck today's complaints, Continuance of care, Re-evaluation by your physician. Follow up: Emergency Department; When: As needed; Reason: Worsening of condition. Signatures: Dispatcher [employer] EDMS Aida Headley, TABLEAU ANALYST-C TABLEAU ANALYST-Csnw Paz Hough RN RN ed1 Justin Wong RN RN jd3 Alzahri, Mohammad, MD MD tn2 Corrections: (The following items were deleted from the chart) 08/21 23:02 22:53 08/21/2018 22:53 Discharged to Home. Impression: Radiculopathy, cervical region; ed1 Torticollis. Condition is Stable. Forms are Medication Reconciliation Form, Thank You Letter, Antibiotic Education, Prescription Opioid Use. Follow up: Private Physician; When: 2 - 3 days; Reason: Recheck today's complaints, Continuance of care, Re-evaluation by your physician. Follow up: Emergency Department; When: As needed; Reason: Worsening of condition. snw
--- NOTE | 2018-08-21 22:54 | ER ---
Nurse's Notes [facility] Name: Reyna Corey Age: 63 yrs Sex: Female : 1955 Arrival Date: 08/21/2018 Time: 21:19 Bed 19 Private MD: Diagnosis: Radiculopathy, cervical region;Torticollis Presentation: 08/21 21:31 Presenting complaint: Patient states: 'I am having neck stiffness for 2 days now. jd3 heating and cooling pads aren't helping. muscle relaxants aren't helping ether. I also noticed that I have only peed like 4 times today and normally I would go a lot more.". Transition of care: patient was not received from another setting of care. Acute neurological deficit: none identified. Onset of symptoms was August 19, 2018. Risk Assessment: Do you want to hurt yourself or someone else? Patient reports no desire to harm self or others. Initial Sepsis Screen: Does the patient meet any 2 criteria? No. Patient's initial sepsis screen is negative. Does the patient have a suspected source of infection? No. Patient's initial sepsis screen is negative. Care prior to arrival: None. 21:31 Method Of Arrival: Ambulatory jd3 21:31 Acuity: KAMARI 4 jd3 Historical: - Allergies: 21:37 Fosamax; jd3 21:37 Activella; jd3 - Home Meds: 21:37 blood pressure med [Active]; jd3 - PMHx: 21:37 Hypertension; jd3 - PSHx: 21:37 Appendectomy; Tubal ligation; Tonsillectomy; jd3 - Immunization history:: Adult Immunizations up to date. - Social history:: Smoking status: Patient/guardian denies using tobacco, but has a distant history of tobacco abuse. - Ebola Screening: : Patient negative for fever greater than or equal to 101.5 degrees Fahrenheit, and additional compatible Ebola Virus Disease symptoms. Screenin:40 Abuse screen: Denies threats or abuse. Denies injuries from another. Nutritional ed1 screening: No deficits noted. Tuberculosis screening: No symptoms or risk factors identified. Fall Risk None identified. Assessment: 21:40 General: Appears uncomfortable, Behavior is calm, cooperative. Pain: Complains of pain ed1 in right trapezius and left trapezius and base of the skull Pain does not radiate. Pain currently is 4 out of 10 on a pain scale. Quality of pain is described as aching, Pain began 2-3 days ago. Is continuous. Neuro: Level of Consciousness is awake, alert, obeys commands, Oriented to person, place, time, situation, Hereditary Cancer Program Coordinator are equal bilaterally Moves all extremities. Full function Gait is steady, Speech is normal, Facial symmetry appears normal, Pupils are PERRLA, Intact Denies weakness blurred vision dizziness, difficulty swallowing, paresthesias numbness headache photophobia diplopia. Cardiovascular: Denies chest pain, Heart tones S1 S2 present. Respiratory: Airway is patent Respiratory effort is even, unlabored, Respiratory pattern is regular, symmetrical, Breath sounds are clear bilaterally. Denies cough, shortness of breath. GI: No signs and/or symptoms were reported involving the gastrointestinal system. : Reports decrease in urine frequency Denies burning with urination. EENT: No signs and/or symptoms were reported regarding the EENT system. Derm: Skin is intact, is healthy with good turgor, Skin is dry, Skin is normal, Skin temperature is warm. Musculoskeletal: Circulation, motion, and sensation intact. Range of motion: intact in all extremities, Swelling absent Reports pain in base of the skull Pain is 4 out of 10 on a pain scale. 22:29 Reassessment: Patient appears in no apparent distress at this time. No changes from ed1 previously documented assessment. Patient and/or family updated on plan of care and expected duration. Pain level reassessed. Patient is alert, oriented x 3, equal unlabored respirations, skin warm/dry/pink. Patient states symptoms have not improved. 23:00 Reassessment: Patient appears in no apparent distress at this time. Patient and/or ed1 family updated on plan of care and expected duration. Pain level reassessed. Patient is alert, oriented x 3, equal unlabored respirations, skin warm/dry/pink. Patient states feeling better. Patient states symptoms have improved. Vital Signs: 21:37 BP 134 / 58; Pulse 93; Resp 16 S; Temp 98.3(O); Pulse Ox 97% on R/A; Weight 63.5 kg jd3 (R); Height 5 ft. 2 in. (157.48 cm) (R); Pain 4/10; 22:29 BP 125 / 57; Pulse 86; Resp 16; Temp 98.1(O); Pulse Ox 95% on R/A; Pain 4/10; ed1 23:00 BP 123 / 64; Pulse 79; Resp 17; Pulse Ox 100% on R/A; Pain 2/10; ed1 21:37 Body Mass Index 25.61 (63.50 kg, 157.48 cm) jd3 ED Course: 21:19 Patient arrived in ED. es 21:25 [facility]ida Headley F[facility]-C [facility]. snw 21:25 Chrissy Ortega MD is Attending Physician. snw 21:35 Triage completed. jd3 21:37 Arm band placed on. jd3 21:40 Paz Hough, RN is Primary Nurse. ed1 21:40 Patient has correct armband on for positive identification. Bed in low position. Call ed1 light in reach. Adult w/ patient. Pulse ox on. NIBP on. 23:00 No provider procedures requiring assistance completed. Patient did not have IV access ed1 during this emergency room visit. Administered Medications: 22:03 Drug: Valium 5 mg Route: PO; ed1 23:02 Follow up: Response: No adverse reaction; Pain is decreased ed1 Outcome: 22:53 Discharge ordered by . snw 23:00 Discharged to home ambulatory, with family. ed1 23:00 Condition: good 23:00 Discharge instructions given to patient, Instructed on discharge instructions, follow up and referral plans. medication usage, Demonstrated understanding of instructions, follow-up care, medications, Prescriptions given X 1. 23:02 Patient left the ED. ed1 Signatures: Aida Headley FNP-C FNP-Csnw Nivia Warren Paz Hough, RN RN ed1 Justin Wong RN RN jd3
== END 2018-08-21 23:02 | disposition home or self-care (01) ==
LOC: ER 21:14
DX: M54.12 Radiculopathy, cervical region (principal); M43.6 Torticollis; I10 Essential (primary) hypertension; Z88.8 Allergy status to other drugs, medicaments and biological substances
CPT/HCPCS: 81003; 81015; 99283

== ENCOUNTER 2018-08-22 06:48 | Emergency (ER) | payer OTHER ==
--- OUTSIDE RECORDS SUMMARY | 2018-08-22 06:51 | XMS REPORT | Clinical Summary ---
:1955 Author Organization [facility] Address [address] [place] [address] Care Team Providers Name Role Phone Jalen Robert Primary Care Provider Unavailable Allergies Active Allergy Reactions Severity Noted Date Comments Risedronate 09/08/2014 MUSCLE CRAMPS Alendronate Other (See Comments) 09/07/2014 Muscle cramps Medications Medication Sig Dispensed Refills Start Date End Date Status ranitidine (ZANTAC) Take 150 mg by 0 Active 150 MG tablet mouth daily. MELOXICAM (MOBIC ORAL) Take 50 mg by 0 Active mouth daily. multivitamin Take 1 tablet by 0 Active (MULTIVITAMIN) per mouth daily. tablet traMADol (ULTRAM) 50 Take 50 mg by 0 Active mg tablet mouth every 6 (six) hours as needed. metaxalone (SKELAXIN) Take 800 mg by 0 Active 800 MG tablet mouth as needed. lidocaine (LIDODERM) 5 Place 1 patch onto 0 Active %(700 mg/patch) patch the skin as needed Remove & Discard patch within 12 hours or as directed by MD. fluticasone (FLONASE) 1 spray by Nasal 0 Active 50 mcg/actuation nasal route daily. spray loratadine (CLARITIN) Take 10 mg by 0 Active 10 mg tablet mouth as needed. metoprolol (TOPROL-XL) Take 25 mg by 0 Active 25 MG 24 hr tablet mouth daily. glucosamine-chondroit- Take by mouth 2 0 Active vit C-Mn (GLUCOSAMINE (two) times daily. CHONDROITIN) 500-400 mg Cap CALCIUM PHOSPHATE Take by mouth 2 0 Active TRIB/VIT D3 (CITRACAL (two) times daily. + D ORAL) diphenhydramine-acetam Take 1 tablet by 0 Active inophen (TYLENOL PM) mouth daily. 25-500 mg Tab Active Problems Not on file Social History Tobacco Use Types Packs/Day Years Used Date Former Smoker Cigarettes 0.8 40 Quit: 05/05/2010 Smokeless Tobacco: Never Used Comments: Quit smoking in April 2010. Alcohol Use Drinks/Week oz/Week Comments Yes 4 Standard drinks or equivalent 2.0 6 Beers/day-on the weekends Sex Assigned at Date Recorded Not on file Job Start Date Occupation Industry Not on file Not on file Not on file Travel History Travel Start Travel End No recent travel history available. Last Filed Vital Signs Not on file Plan of Treatment Health Maintenance Due Date Last Done Comments INFLUENZA VACCINE 12/01/2017 Results Not on fileafter 08/21/2017 Insurance Payer Benefit Plan / Group Subscriber ID Type Phone Address [employer] - [employer] HMO POS QPOS xxxxxxxxxx HMO/POS Advance Directives Patient has advance care planning documents on file. For more information, please contact:[facility]the [facility] [place] countyWING [phone]
--- OUTSIDE RECORDS SUMMARY | 2018-08-22 06:58 | XMS REPORT | Continuity of Care Document ---
:1955 Author Organization Interface Problems Problem Status Onset Classification Date Comments Source Date Reported K86.2 - CYST OF Active [facility] PANCREAS 016 [place] DIARRHEA Active Condition 06/17/2014 Medical 015 Group GASTROENTERITIS, Active Condition 06/17/2014 [facility] VIRAL, ACUTE 015 Group ABDOMINAL PAIN, Active Condition 06/17/2014 [facility] EPIGASTRIC 015 Group Diarrhea<sup>3</s Active Problem 10/01/2015 Data [facility] up> 015 migrated [place] from [employer] on 09/07/14. Epigastric Active Problem 10/01/2015 Data [facility] pain<sup>5</sup> 015 migrated [place] from [employer] on 09/07/14. Viral Resolved Problem 10/01/2015 Data [facility] gastroenteritis<s 015 migrated [place] up>8</sup> from [employer] on 09/07/14. HYPERTENSION, Active Condition 06/17/2014 Medical BENIGN ESSENTIAL 015 Group SKIN LESION Active Condition 06/17/2014 Medical 015 Group Benign essential Active Problem 10/01/2015 Data [facility] hypertension<sup> 015 migrated [place] 2</sup> from [employer] on 09/07/14. Disorder of Active Problem 10/01/2015 Data [facility] skin<sup>4</sup> 015 migrated [place] from [employer] on 09/07/14. Vitamin D Active Problem 10/01/2015 Data [facility] deficiency<sup>9< 015 migrated [place] /sup> from [employer] on 09/07/14. 577.2 - PANCREAT Active [facility] CYST/P 015 [place] SINUSITIS Inactive Condition 06/17/2014 Medical 015 Group [...] Problem 10/01/2015 Data [facility] bronchitis<sup>1< 014 migrated [place] /sup> from [employer] on 09/16/14. BACK [...] Problem 10/01/2015 Data [facility] infectious 013 migrated [place] disease<sup>7</grewal from GE p> Centricity on 09/16/14. [...] Problem 10/01/2015 Data [facility] communicable 012 migrated [place] disease<sup>6</grewal from GE p> Centricity on 09/16/14. Herpes Labialis Problem 06/10/2016 [facility] Conjunctivitis Problem 06/10/2016 [facility] Acute Sinusitis Problem 06/10/2016 [facility] Acute Upper Problem 06/10/2016 [facility] Respiratory Infection Urinary Tract Problem 06/10/2016 [facility] Infectious Disease Vaginitis and Problem 06/10/2016 [facility] Vulvovaginitis Cellulitis of Problem 06/10/2016 [facility] Face Contact Problem 06/10/2016 [facility] Dermatitis Elevated Blood Problem 06/10/2016 [facility] Pressure Final: Other 01/03/2014 [facility] Screening [place] Mammogram Allergic rhinitis Active Problem 10/01/2015 [facility] [place] Cyst and Active Problem 10/01/2015 [facility] Pseudocyst of [place] Pancreas GERD without Active Problem 10/01/2015 [facility] esophagitis [place] Hyperlipidemia Active Problem 10/01/2015 [facility] [place] LUMBAGO Active Problem 10/01/2015 [facility] [place] Medications Medication Details Route Status Patient Ordering Order Source Instructions Provider Date ZOFRMARCOS ODT 4 MG 1-2 tabs po q8 Active Medical TBDP prn 2014 Group nausea/Vomitin g TRAMADOL HCL 50 1 tablet every Active Medical MG TABS 8 hours as 2014 Group needed for pain METOPROLOL 1 tablet daily Active Medical SUCCINATE ER 25 for blood 2014 Group MG [id number] pressure and heart [facility] per bottle Active [...] D Fluarix Quad Fluarix Quad Active [facility] 6180-9325 (PF) 7659-2318 (PF) 60 mcg (15 mcg 60 mcg (15 mcg x 4)/0.5 mL IM x 4)/0.5 mL IM syringe syringe TO BE ADMINISTERED BY PHARMACIST FOR IMMUNIZATION Fluticasone fluticasone 50 Active [facility] propionate 0.05 mcg/actuation MG/ACTUAT nasal Metered Dose spray,suspensi Nasal Whately on Inhale 2 sprays every day by [...] Active 1Data [facility] e<sup>1</s allergy 4 migrated [place] up> from [employer] on 07/01/14. Originally documented as FOSAMAX. hurt [...] Migrated from OBS ; Data migrated from n[employer]el[employer] on 04/04/2015. Tdap completed [facility] 1 Results Order Name Results Value Reference Date Interpretation Comments Source Range Abdomen wo Abdomen wo PROCEDURE: MAGNETIC RESONANCE CHOLANGIOPANCREATOGRAPHY 09/27 - [facility] contrast contrast MRI /2015 - [place] MRI CLINICAL INDICATION: K86.2 Cyst of pancreas. Read by: Roel Segvoia MD Dictated Date/time: 09/29/15 10:45 Electronically Signed [...] fibula Examination: Right tibia/fibula, 2 [facility] [place] series DX History: 924.5 Contusion of Unspecified [...] PROCEDURE: UNILATERAL LOWER EXTREMITY VENOUS ULTRASOUND 10/28 [facility] Venous Venous /2014 - [place] Doppler Doppler Unilat US Unilat US INDICATION: [...] - OPI contrast contrast MRI /2014 - [facility] MRCP Read by: Roel Segovia MD Dictated [...] PLEASE DISREGARD THIS REPOR-WRONG ORDERING PHYSICIAN - [facility] HISTORY: Abdominal pain. Liver ultrasound exam. Electronically [...] US HISTORY: Abdominal pain. 06/17 - - [place] Liver ultrasound exam. Read by: Jose Luis Mendes MD Dictated [...] 98 U/L 39 - 136 06/04 [facility] Chemistry SODIUM 135 MEQ/L 135 - 145 06/04 mmol/L [facility] Chemistry POTASSIUM 4.3 MEQ/L 3.5 - 5.1 06/04 mmol/L [facility] Chemistry CREATININE 0.9 mg/dL 0.5 - 1.4 06/04 [facility] Chemistry BUN 16 mg/dL 7 - 22 06/04 [facility] Chemistry BUN/CREAT 18 6 - 25 06/04 [facility] Hematology HGB 13.4 g/dL 12.0 - 06/04 16.0 [facility] Hematology HCT 40.6 % 36.0 - 06/04 48.0 [facility] Hematology PLATELETS 220 K/CMM 133 - 450 06/04 / [facility] Urinalysis UA COLOR Light 06/04 Yellow /2014 [facility] Urinalysis UA COLOR Light 06/04 Yellow /2014 [facility] Digital Digital - DIGITAL MAMMO SCREENING JOSUE PANG 12/31 - [facility] Mammo Mammo /2013 [facility] Screening Screening BILATERAL DIGITAL SCREENING MAMMOGRAM WITH CAD: 2013 [facility] CLINICAL: Routine. Read by: Ban Moctezuma MD Dictated Date/time: 12/31/13 08:45 Electronically Signed by: Ban Moctezuma MD 12/31/13 08:45 FINAL REPORT Current study was evaluated with a Computer Aided Detection (CAD) system. Comparison is made to exams dated: 11/24/2012 mammogram and 11/14/2011 mammogram - [facility]. The tissue of both breasts is almost [...] one year is recommended. Ban plasencia/penrad:12/31/2013 08:45:46 Supervisor Power Reactor: Nadya Wadsworth [facility] This exam was dictated and interpreted by [id number] for Rosemary 15. letter sent: Normal exam [...] g/dL 12.0 - 08/02 MH 16.0 [facility] Hematology HCT 40.3 % 36.0 - 08/02 48.0 [facility] Hematology PLATELETS 228 K/CMM 133 - [...] 03/15 - [facility] w/wo contrast /2013 - [place] contrast REASON FOR EXAM: 577.2. MRI Read by: Roel Segovia Dictated Date/time: 03/15/13 10:35 COMPARISON: MRI of the abdomen 08/10/2012. Abdomen and pelvic CT 2012. Electronically Signed by: Roel Segovia MD 03/15/13 11:39 FINAL REPORT TECHNIQUE: [...] 03/10 - [facility] views views /2013 - [place] HX: LEFT HIP PAIN / Read by: Esdras Arriaga Dictated Date/time: 03/10/13 13:55 FINDINGS: AP and lateral views reveal no evidence of fracture, dislocation or radiopaque foreign body. The visualized soft tissues are grossly normal. Electronically Signed by: Esdras Arriaga MD 03/10/13 13:56 FINAL REPORT IMPRESSION: Negative study. SL: 15 Spine Spine lumbar LUMBAR SPINE SERIES -- 5 VIEWS 03/10 - [facility] lumbar minimum - [place] minimum 4 views HX: LOW BACK PAIN [...] 01/29 - [facility] comp comp /2012 - [place] w/obl-flx/e w/obl-flx/ex xt t INDICATION: Neck pain [...] THORACIC SPINE [facility]IOGR[facility] - [place] views views INDICATION: Back pain Read by: Juan David Gonzalez Dictated Date/time: 01/29/13 13:27 Electronically Signed by: Juan David Gonzalez MD 01/29/13 13:27 FINAL REPORT COMPARISON: None FINDINGS: Vertebral alignment is within normal limits. The disc spaces are maintained. No compression or displaced fractures are seen. The paravertebral soft tissues are unremarkable. IMPRESSION: Unremarkable thoracic spine radiograph. SL: 16 Digital Digital - DIGITAL MAMMO SCREENING JOSUE BIRD 11/24 - [facility] Mammo Mammo /[address] [place] [address] Screening Screening BILATERAL DIGITAL SCREENING MAMMOGRAM WITH CAD: 2012 [facility] BIRD [facility] CLINICAL: Screening For Mlig [place], Breast, Nos (Icd-V76.10). Read by : Ban Moctezuma Dictated Date/time: 11/27/12 10:23 Electronically Signed by: Ban Moctezuma MD 11/27/12 10:23 FINAL REPORT Current study was evaluated with a Computer Aided Detection (CAD) system. Comparison is made to exam dated: 11/14/2011 mammogram - [facility]. The tissue of both breasts is predominantly [...] recommended. SUMMARY: SL: 15. Ban plasencia/penrad:11/27/2012 10:23:28 Supervisor Power Reactor: Cristel Narvaez [facility] letter sent: Normal exam Mammogram BI-RADS: 2 Benign Abdomen Abdomen with 08/10 - [facility] with and and [facility] without contrast MRI REASON FOR EXAM: 235.5. 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 Renal Social Worker PAP SMEAR Normal 03/03 Medical Group Renal Social Worker PAP SMEAR Normal 03/03 Medical Group Renal Social Worker PAP SMEAR Normal 03/03 Medical Group Renal Social Worker PAP SMEAR Normal 03/03 Medical Group Renal Social Worker PAP SMEAR Normal 03/03 Medical Group Renal Social Worker PAP SMEAR Normal 03/03 Medical Group Vital [...] Provider Date Date Visit [facility] Report [id number] James 08/02 08/02 Steve 7060 Gaudencio, /2013 [facility] Lab Report [id number] Zenithe 12/09 12/09 [facility] [place] 6130 MD Jalen /2013 [facility] Lab Report [id number] [facility] 12/29 12/29 MH Steve 6790 MD Jalen /2013 [facility] Outpt Diag [id number] [facility] 12/31 01/01 MH [facility] Outpatient Services Jalen /2013 [facility] Office [id number] [facility] 03/04 03/04 [facility] [place] Visit 9460 MD Jalen /2014 [facility] Lab Report [id number] [facility] 06/04 06/04 MH [place] 5140 MD Jalen /2014 [facility] Office [id number] [facility] 06/04 06/04 [facility] [place] Visit 0750 MD Jalen /2014 [facility] Lab Report [id number] [facility] 06/17 06/17 MH [place] 1750 MD Jalen /2014 [facility] Office [id number] [facility] 06/17 06/17 MH Steve Visit 8130 MD Jalen /2014 [facility] Lab Report [id number] [facility] 06/17 06/17 MH [place] 2520 MD Jalen /2014 [facility] MHHS Outpt Diag [id number] Zenithe 06/17 06/18 MH [facility] [id number] Fracisco 08/18 08/19 MH [facility] Outpatient Services Anila /2014 [facility] Outpatient [id number] TWYLA 09/26 Active [facility] INES /2014 [place] Outpatient [id number] YADIEL 10/21 Active [facility] WHITLOCK /2014 [place] [facility]HS Outpt Diag [id number] Yadiel 10/28 10/29 MH [facility] Outpatient Services Whitlock Jr /2014 [facility] Outpatient [id number] YADIEL 01/12 Active [facility] Steve Outpatient [id number] NOELLE 02/16 Active [facility] [place] H Outpatient [id number] NOELLE 06/07 Active [facility] [id number] Fracisco 09/27 09/28 MH [facility] Outpatient Services Raijbrundidge /2015 [facility] Outpatient [id number] NOELLE 10/06 Active [facility] [place] H Outpatient [id number] LINDSEY GUTIERREZ 10/06 [facility] [place] Outpatient [id number] YADIEL 10/08 Active [facility] [place] Outpatient [id number] YADIEL 05/30 Active [facility] [place] [id number] [place] 06/10 [facility] Neighbors, [id number] [place]ighb[place] /2016 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 Procedures Procedure Code Date Perfomer Comments Source mammogram 60239 Completed at [facility] 3 [facility] Group colonoscopy 07187 Complete Medical 3 Group mammogram 81785 Completed at [address] Group colonoscopy 75670 Complete Medical 8 Group mammogram 01049 Normal Bilateral Medical 8 Group vaginal Pap smear 08605 Normal Medical results 8 Group colonoscopy 57205 Diverticulosis Medical 8 Group vaginal Pap smear 62761 Normal Medical results 8 Group mammogram 11862 Normal Bilateral Medical 8 Group colonoscopy 24546 Diverticulosis; Medical 8 patient history Group Appendectomy [facility] Tonsillectomy [facility] Appendectomy [id number] OP[facility] [place] Bilateral tubal [id number] [facility] ligation [place] Suspension of [id number] OPITashi bladder [place] Tonsillectomy [id number] АННА [place]
--- OUTSIDE RECORDS SUMMARY | 2018-08-22 07:00 | XMS REPORT | Continuity of Care Document ---
:1955 Author Organization [facility] Care Team Providers Name Role Phone JANNETTE Ratliff, James Unavailable Unavailable Insurance Providers Payer name Policy type / Coverage Policy ID Covered libertarian ID Policy Campbell type AETNA - AEXCEL - CHOICE PLUS - NAP (POS II) AETNA - AEXCEL - CHOICE PLUS - NAP (POS II) Encounters Encounter Performer Location Date Lab Report James Ratliff APRN [facility] Aug 02, 2013 Allergies, Adverse Reactions, Alerts [...] quit Nov 29, 2011 mammogram Completed at [facility] Mar 31, 2012 smoking status former smoker Sep 24, 2007 colonoscopy Complete Aug 13, 2012 colonoscopy Complete Nov 27, 2012 mammogram Completed at [facility] Medications Medication Instructions Start Date Status FLUTICASONE [...] 2011Oct 09, platelet count PLATELETS 256 K/CMM 205-374 4471 /mm3 Jun 22, hemoglobin, blood HGB 13.4 g/dL 12.0-16.0 2012Jun 22, hematocrit, blood HCT 41.2 % 36.0-48.0 2012Jun 22, platelet count PLATELETS 288 K/CMM 417-569 8264 /mm3 Oct 09, hemoglobin, blood HGB 13.8 g/dL 12.0-16.0 2011Oct 09, hematocrit, blood HCT 42.8 % 36.0-48.0 2011Oct 09, platelet count PLATELETS 256 K/CMM 557-912 0976 /mm3 Jun 22, hemoglobin, blood HGB 13.4 g/dL 12.0-16.0 2012Jun 22, hematocrit, blood HCT 41.2 % 36.0-48.0 2012Jun 22, platelet count PLATELETS 288 K/CMM 397-877 7467 /mm3 Aug 02, hemoglobin, blood HGB 13.5 g/dL 12.0-16.0 2013Aug 02, hematocrit, blood HCT 40.3 % 36.0-48.0 2013Aug 02, platelet count PLATELETS 228 K/CMM 816-735 1908 /mm3 Oct 10, urine color UA COLOR [...] Oct 09, sodium, serum SODIUM 143 MEQ/L 093-097 4357 mmol/L Oct 09, potassium, serum POTASSIUM 4.7 [...] Jun 22, sodium, serum SODIUM 139 MEQ/L 639-508 2632 mmol/L Jun 22, potassium, serum POTASSIUM 3.8 [...] Oct 09, sodium, serum SODIUM 143 MEQ/L 251-399 3474 mmol/L Oct 09, potassium, serum POTASSIUM 4.7 [...] Jun 22, sodium, serum SODIUM 139 MEQ/L 465-514 5280 mmol/L Jun 22, potassium, serum POTASSIUM 3.8 [...] July 07, sodium, serum SODIUM 141 MEQ/L 962-050 1601 mmol/L July 07, potassium, serum POTASSIUM 4.1 [...] Aug 02, sodium, serum SODIUM 139 MEQ/L 102-627 8929 mmol/L Aug 02, potassium, serum POTASSIUM 4.4 [...]
--- OUTSIDE RECORDS SUMMARY | 2018-08-22 07:01 | XMS REPORT | Continuity of Care Document ---
:1955 Author Organization [facility] Care Team Providers Name Role Phone JANNETTE Ratliff, James Unavailable Unavailable Insurance Providers Payer name Policy type / Coverage Policy ID Covered constitution party ID Policy Campbell type AETNA - AEXCEL - CHOICE PLUS - NAP (POS II) AETNA - AEXCEL - CHOICE PLUS - NAP (POS II) Encounters Encounter Performer Location Date Lab Report James Ratliff APRN [facility] Aug 02, 2013 Allergies, Adverse Reactions, Alerts [...] quit Nov 29, 2011 mammogram Completed at [facility] Mar 31, 2012 smoking status former smoker Sep 24, 2007 colonoscopy Complete Aug 13, 2012 colonoscopy Complete Nov 27, 2012 mammogram Completed at [facility] Medications Medication Instructions Start Date Status [...] 2011Oct 09, platelet count PLATELETS 256 K/CMM 354-155 2989 /mm3 Jun 22, hemoglobin, blood HGB 13.4 g/dL 12.0-16.0 2012Jun 22, hematocrit, blood HCT 41.2 % 36.0-48.0 2012Jun 22, platelet count PLATELETS 288 K/CMM 847-713 2227 /mm3 Oct 09, hemoglobin, blood HGB 13.8 g/dL 12.0-16.0 2011Oct 09, hematocrit, blood HCT 42.8 % 36.0-48.0 2011Oct 09, platelet count PLATELETS 256 K/CMM 722-108 8904 /mm3 Jun 22, hemoglobin, blood HGB 13.4 g/dL 12.0-16.0 2012Jun 22, hematocrit, blood HCT 41.2 % 36.0-48.0 2012Jun 22, platelet count PLATELETS 288 K/CMM 443-796 9119 /mm3 Aug 02, hemoglobin, blood HGB 13.5 g/dL 12.0-16.0 2013Aug 02, hematocrit, blood HCT 40.3 % 36.0-48.0 2013Aug 02, platelet count PLATELETS 228 K/CMM 662-849 0443 /mm3 Oct 10, urine color UA COLOR [...] Oct 09, sodium, serum SODIUM 143 MEQ/L 136-712 1583 mmol/L Oct 09, potassium, serum POTASSIUM 4.7 [...] Jun 22, sodium, serum SODIUM 139 MEQ/L 243-304 4148 mmol/L Jun 22, potassium, serum POTASSIUM 3.8 [...] Oct 09, sodium, serum SODIUM 143 MEQ/L 032-543 6379 mmol/L Oct 09, potassium, serum POTASSIUM 4.7 [...] Jun 22, sodium, serum SODIUM 139 MEQ/L 284-510 2726 mmol/L Jun 22, potassium, serum POTASSIUM 3.8 [...] July 07, sodium, serum SODIUM 141 MEQ/L 649-714 7500 mmol/L July 07, potassium, serum POTASSIUM 4.1 [...] Aug 02, sodium, serum SODIUM 139 MEQ/L 919-557 0965 mmol/L Aug 02, potassium, serum POTASSIUM 4.4 [...]
--- OUTSIDE RECORDS SUMMARY | 2018-08-22 07:02 | XMS REPORT | Continuity of Care Document ---
:1955 Author Organization [facility] Care Team Providers Name Role Phone MD Jlaen, Jeramy Unavailable Unavailable Insurance Providers Payer name Policy type / Coverage Policy ID Covered green party ID Policy Campbell type AETNA - AEXCEL - CHOICE PLUS - NAP (POS II) AETNA - AEXCEL - CHOICE PLUS - NAP (POS II) Encounters Encounter Performer Location Date Lab Report Jeramy Rao MD [facility] Dec 29, 2013 Allergies, Adverse Reactions, Alerts [...] 29, 2011 mammogram Completed at [facility] Mar 31, 2012 smoking status former smoker Sep 24, 2007 colonoscopy Complete Aug 13, 2012 colonoscopy Complete Nov 27, 2012 mammogram Completed at [facility] Dec 09, 2013 smoking status Former [...] 2011Oct 09, platelet count PLATELETS 256 K/CMM 357-918 0664 /mm3 Jun 22, hemoglobin, blood HGB 13.4 g/dL 12.0-16.0 2012Jun 22, hematocrit, blood HCT 41.2 % 36.0-48.0 2012Jun 22, platelet count PLATELETS 288 K/CMM 795-979 7998 /mm3 Oct 09, hemoglobin, blood HGB 13.8 g/dL 12.0-16.0 2011Oct 09, hematocrit, blood HCT 42.8 % 36.0-48.0 2011Oct 09, platelet count PLATELETS 256 K/CMM 229-377 9052 /mm3 Jun 22, hemoglobin, blood HGB 13.4 g/dL 12.0-16.0 2012Jun 22, hematocrit, blood HCT 41.2 % 36.0-48.0 2012Jun 22, platelet count PLATELETS 288 K/CMM 760-598 2309 /mm3 Aug 02, hemoglobin, blood HGB 13.5 g/dL 12.0-16.0 2013Aug 02, hematocrit, blood HCT 40.3 % 36.0-48.0 2013Aug 02, platelet count PLATELETS 228 K/CMM 824-950 9843 /mm3 Dec 09, erythrocyte ESR 6 mm/hr [...] Oct 09, sodium, serum SODIUM 143 MEQ/L 977-195 9974 mmol/L Oct 09, potassium, serum POTASSIUM 4.7 [...] Jun 22, sodium, serum SODIUM 139 MEQ/L 480-004 0319 mmol/L Jun 22, potassium, serum POTASSIUM 3.8 [...] Oct 09, sodium, serum SODIUM 143 MEQ/L 344-865 2023 mmol/L Oct 09, potassium, serum POTASSIUM 4.7 [...] Jun 22, sodium, serum SODIUM 139 MEQ/L 091-164 6537 mmol/L Jun 22, potassium, serum POTASSIUM 3.8 [...] July 07, sodium, serum SODIUM 141 MEQ/L 885-922 8739 mmol/L July 07, potassium, serum POTASSIUM 4.1 [...] Aug 02, sodium, serum SODIUM 139 MEQ/L 685-913 5186 mmol/L Aug 02, potassium, serum POTASSIUM 4.4 [...] Dec 09, sodium, serum SODIUM 140 MEQ/L 719-610 4482 mmol/L Dec 09, potassium, serum POTASSIUM 4.6 [...]
--- OUTSIDE RECORDS SUMMARY | 2018-08-22 07:02 | XMS REPORT | Continuity of Care Document ---
:1955 Author Organization [facility] Care Team Providers Name Role Phone MD Jalen, Jeramy Unavailable Unavailable Insurance Providers Payer name Policy type / Coverage Policy ID Covered constitution party ID Policy Campbell type AETNA - AEXCEL - CHOICE PLUS - NAP (POS II) AETNA - AEXCEL - CHOICE PLUS - NAP (POS II) Encounters Encounter Performer Location Date Lab Report Jeramy Rao MD [facility] Dec 09, 2013 [place] Allergies, Adverse Reactions, Alerts Type Substance Reaction [...] 29, 2011 mammogram Completed at [facility] Mar 31, 2012 smoking status former smoker Sep 24, 2007 colonoscopy Complete Aug 13, 2012 colonoscopy Complete Nov 27, 2012 mammogram Completed at [facility] Dec 09, 2013 smoking status [...] 2011Oct 09, platelet count PLATELETS 256 K/CMM 770-029 6435 /mm3 Jun 22, hemoglobin, blood HGB 13.4 g/dL 12.0-16.0 2012Jun 22, hematocrit, blood HCT 41.2 % 36.0-48.0 2012Jun 22, platelet count PLATELETS 288 K/CMM 202-371 8966 /mm3 Oct 09, hemoglobin, blood HGB 13.8 g/dL 12.0-16.0 2011Oct 09, hematocrit, blood HCT 42.8 % 36.0-48.0 2011Oct 09, platelet count PLATELETS 256 K/CMM 800-671 0721 /mm3 Jun 22, hemoglobin, blood HGB 13.4 g/dL 12.0-16.0 2012Jun 22, hematocrit, blood HCT 41.2 % 36.0-48.0 2012Jun 22, platelet count PLATELETS 288 K/CMM 217-739 1421 /mm3 Aug 02, hemoglobin, blood HGB 13.5 g/dL 12.0-16.0 2013Aug 02, hematocrit, blood HCT 40.3 % 36.0-48.0 2013Aug 02, platelet count PLATELETS 228 K/CMM 090-108 3090 /mm3 Dec 09, erythrocyte ESR 6 mm/hr [...] Oct 09, sodium, serum SODIUM 143 MEQ/L 130-088 9825 mmol/L Oct 09, potassium, serum POTASSIUM 4.7 [...] Jun 22, sodium, serum SODIUM 139 MEQ/L 744-264 7524 mmol/L Jun 22, potassium, serum POTASSIUM 3.8 [...] Oct 09, sodium, serum SODIUM 143 MEQ/L 808-710 8771 mmol/L Oct 09, potassium, serum POTASSIUM 4.7 [...] Jun 22, sodium, serum SODIUM 139 MEQ/L 656-323 7917 mmol/L Jun 22, potassium, serum POTASSIUM 3.8 [...] July 07, sodium, serum SODIUM 141 MEQ/L 128-785 2426 mmol/L July 07, potassium, serum POTASSIUM 4.1 [...] Aug 02, sodium, serum SODIUM 139 MEQ/L 327-059 9235 mmol/L Aug 02, potassium, serum POTASSIUM 4.4 [...] Dec 09, sodium, serum SODIUM 140 MEQ/L 191-430 5956 mmol/L Dec 09, potassium, serum POTASSIUM 4.6 [...]
--- OUTSIDE RECORDS SUMMARY | 2018-08-22 07:04 | XMS REPORT | Continuity of Care Document ---
:1955 Author Organization [facility] Care Team Providers Name Role Phone MD Jalen, Jeramy Unavailable Unavailable Insurance Providers Payer name Policy type / Coverage Policy ID Covered alliance party ID Policy Campbell type AETNA - AEXCEL - CHOICE PLUS - NAP (POS II) AETNA - AEXCEL - CHOICE PLUS - NAP (POS II) Encounters Encounter Performer Location Date Office Visit Jeramy Rao MD [facility] Mar 04, 2014 [place] Allergies, Adverse Reactions, Alerts Type Substance Reaction [...] Completed at [facility] Mar 31, 2012 smoking status former smoker Sep 24, 2007 colonoscopy Complete Aug 13, 2012 colonoscopy Complete Nov 27, 2012 mammogram Completed at [facility] Dec 09, 2013 smoking status Former smoker [...] 2011Oct 09, platelet count PLATELETS 256 K/CMM 334-635 7944 /mm3 Jun 22, hemoglobin, blood HGB 13.4 g/dL 12.0-16.0 2012Jun 22, hematocrit, blood HCT 41.2 % 36.0-48.0 2012Jun 22, platelet count PLATELETS 288 K/CMM 115-931 8711 /mm3 Oct 09, hemoglobin, blood HGB 13.8 g/dL 12.0-16.0 2011Oct 09, hematocrit, blood HCT 42.8 % 36.0-48.0 2011Oct 09, platelet count PLATELETS 256 K/CMM 902-999 3029 /mm3 Jun 22, hemoglobin, blood HGB 13.4 g/dL 12.0-16.0 2012Jun 22, hematocrit, blood HCT 41.2 % 36.0-48.0 2012Jun 22, platelet count PLATELETS 288 K/CMM 644-066 9315 /mm3 Aug 02, hemoglobin, blood HGB 13.5 g/dL 12.0-16.0 2013Aug 02, hematocrit, blood HCT 40.3 % 36.0-48.0 2013Aug 02, platelet count PLATELETS 228 K/CMM 657-356 4333 /mm3 Dec 09, erythrocyte ESR 6 mm/hr [...] Oct 09, sodium, serum SODIUM 143 MEQ/L 183-299 3138 mmol/L Oct 09, potassium, serum POTASSIUM 4.7 [...] Jun 22, sodium, serum SODIUM 139 MEQ/L 499-668 6741 mmol/L Jun 22, potassium, serum POTASSIUM 3.8 [...] Oct 09, sodium, serum SODIUM 143 MEQ/L 272-117 2634 mmol/L Oct 09, potassium, serum POTASSIUM 4.7 [...] Jun 22, sodium, serum SODIUM 139 MEQ/L 997-557 5616 mmol/L Jun 22, potassium, serum POTASSIUM 3.8 [...] 2012July 07, sodium, serum SODIUM 141 MEQ/L 153-332 7689 mmol/L July 07, potassium, serum POTASSIUM 4.1 [...] Aug 02, sodium, serum SODIUM 139 MEQ/L 203-239 5359 mmol/L Aug 02, potassium, serum POTASSIUM 4.4 [...] Dec 09, sodium, serum SODIUM 140 MEQ/L 877-268 9668 mmol/L Dec 09, potassium, serum POTASSIUM 4.6 [...]
--- OUTSIDE RECORDS SUMMARY | 2018-08-22 07:05 | XMS REPORT | Continuity of Care Document ---
:1955 Author Organization [facility] Care Team Providers Name Role Phone MD Jalen, Jeramy Unavailable Unavailable Insurance Providers Payer name Policy type / Coverage Policy ID Covered alliance party ID Policy Campbell type AETNA - AEXCEL - CHOICE PLUS - NAP (POS II) AETNA - AEXCEL - CHOICE PLUS - NAP (POS II) Encounters Encounter Performer Location Date Lab Report Jeramy Rao MD [facility] Jun 04, 2014 [place] Allergies, Adverse Reactions, Alerts Type Substance Reaction [...] 2011 mammogram Completed at [facility] Mar 31, 2012 smoking status former smoker Sep 24, 2007 colonoscopy Complete Aug 13, 2012 colonoscopy Complete Nov 27, 2012 mammogram Completed at [facility] Dec 09, 2013 smoking status Former [...] daily for blood Jun 04, 2014 Active [id number] pressure and heart METAXALONE 800 MG TABS [...] 2011Oct 09, platelet count PLATELETS 256 K/CMM 018-973 8157 /mm3 Jun 22, hemoglobin, blood HGB 13.4 g/dL 12.0-16.0 2012Jun 22, hematocrit, blood HCT 41.2 % 36.0-48.0 2012Jun 22, platelet count PLATELETS 288 K/CMM 853-854 6272 /mm3 Oct 09, hemoglobin, blood HGB 13.8 g/dL 12.0-16.0 2011Oct 09, hematocrit, blood HCT 42.8 % 36.0-48.0 2011Oct 09, platelet count PLATELETS 256 K/CMM 056-218 8014 /mm3 Jun 22, hemoglobin, blood HGB 13.4 g/dL 12.0-16.0 2012Jun 22, hematocrit, blood HCT 41.2 % 36.0-48.0 2012Jun 22, platelet count PLATELETS 288 K/CMM 023-485 0654 /mm3 Aug 02, hemoglobin, blood HGB 13.5 g/dL 12.0-16.0 2013Aug 02, hematocrit, blood HCT 40.3 % 36.0-48.0 2013Aug 02, platelet count PLATELETS 228 K/CMM 423-333 5127 /mm3 Dec 09, erythrocyte ESR 6 mm/hr 0-20 2013 sedimentation rate Jun 04, hemoglobin, blood HGB 13.4 g/dL 12.0-16.0 2014Jun 04, hematocrit, blood HCT 40.6 % 36.0-48.0 2014Jun 04, platelet count PLATELETS 220 K/CMM 814-080 8306 /mm3 Oct 10, urine color UA COLOR [...] Oct 09, sodium, serum SODIUM 143 MEQ/L 080-591 3561 mmol/L Oct 09, potassium, serum POTASSIUM 4.7 [...] Jun 22, sodium, serum SODIUM 139 MEQ/L 072-843 1142 mmol/L Jun 22, potassium, serum POTASSIUM 3.8 [...] Oct 09, sodium, serum SODIUM 143 MEQ/L 448-725 3457 mmol/L Oct 09, potassium, serum POTASSIUM 4.7 [...] Jun 22, sodium, serum SODIUM 139 MEQ/L 466-642 3219 mmol/L Jun 22, potassium, serum POTASSIUM 3.8 [...] July 07, sodium, serum SODIUM 141 MEQ/L 492-812 6224 mmol/L July 07, potassium, serum POTASSIUM 4.1 [...] Aug 02, sodium, serum SODIUM 139 MEQ/L 364-017 8582 mmol/L Aug 02, potassium, serum POTASSIUM 4.4 [...] Dec 09, sodium, serum SODIUM 140 MEQ/L 084-103 5553 mmol/L Dec 09, potassium, serum POTASSIUM 4.6 [...] Jun 04, sodium, serum SODIUM 135 MEQ/L 177-334 3103 mmol/L Jun 04, potassium, serum POTASSIUM 4.3 [...]
--- OUTSIDE RECORDS SUMMARY | 2018-08-22 07:05 | XMS REPORT | Continuity of Care Document ---
:1955 Author Organization [facility] Care Team Providers Name Role Phone MD Jalen, Jeramy Unavailable Unavailable Insurance Providers Payer name Policy type / Coverage Policy ID Covered democrat ID Policy Campbell type AETNA - AEXCEL - CHOICE PLUS - NAP (POS II) AETNA - AEXCEL - CHOICE PLUS - NAP (POS II) Encounters Encounter Performer Location Date Office Visit Jeramy Rao MD [facility] Jun 04, 2014 [place] Allergies, Adverse Reactions, Alerts Type Substance Reaction [...] 29, 2011 mammogram Completed at [facility] Mar 31, 2012 smoking status former smoker Sep 24, 2007 colonoscopy Complete Aug 13, 2012 colonoscopy Complete Nov 27, 2012 mammogram Completed at [facility] Dec 09, 2013 smoking status Former [...] daily for blood Jun 04, 2014 Active [id number]-[id number] pressure and heart METAXALONE 800 MG TABS [...] 2011Oct 09, platelet count PLATELETS 256 K/CMM 245-898 2417 /mm3 Jun 22, hemoglobin, blood HGB 13.4 g/dL 12.0-16.0 2012Jun 22, hematocrit, blood HCT 41.2 % 36.0-48.0 2012Jun 22, platelet count PLATELETS 288 K/CMM 578-995 8930 /mm3 Oct 09, hemoglobin, blood HGB 13.8 g/dL 12.0-16.0 2011Oct 09, hematocrit, blood HCT 42.8 % 36.0-48.0 2011Oct 09, platelet count PLATELETS 256 K/CMM 266-871 9506 /mm3 Jun 22, hemoglobin, blood HGB 13.4 g/dL 12.0-16.0 2012Jun 22, hematocrit, blood HCT 41.2 % 36.0-48.0 2012Jun 22, platelet count PLATELETS 288 K/CMM 481-024 9896 /mm3 Aug 02, hemoglobin, blood HGB 13.5 g/dL 12.0-16.0 2013Aug 02, hematocrit, blood HCT 40.3 % 36.0-48.0 2013Aug 02, platelet count PLATELETS 228 K/CMM 563-848 5198 /mm3 Dec 09, erythrocyte ESR 6 mm/hr [...] Oct 09, sodium, serum SODIUM 143 MEQ/L 608-118 8481 mmol/L Oct 09, potassium, serum POTASSIUM 4.7 [...] Jun 22, sodium, serum SODIUM 139 MEQ/L 360-162 9781 mmol/L Jun 22, potassium, serum POTASSIUM 3.8 [...] Oct 09, sodium, serum SODIUM 143 MEQ/L 168-990 7248 mmol/L Oct 09, potassium, serum POTASSIUM 4.7 [...] Jun 22, sodium, serum SODIUM 139 MEQ/L 171-259 0123 mmol/L Jun 22, potassium, serum POTASSIUM 3.8 [...] July 07, sodium, serum SODIUM 141 MEQ/L 577-970 7345 mmol/L July 07, potassium, serum POTASSIUM 4.1 [...] Aug 02, sodium, serum SODIUM 139 MEQ/L 432-882 7732 mmol/L Aug 02, potassium, serum POTASSIUM 4.4 [...] Dec 09, sodium, serum SODIUM 140 MEQ/L 663-127 9768 mmol/L Dec 09, potassium, serum POTASSIUM 4.6 [...]
--- OUTSIDE RECORDS SUMMARY | 2018-08-22 07:06 | XMS REPORT | Continuity of Care Document ---
:1955 Author Organization [facility] Care Team Providers Name Role Phone MD Jalen, Jeramy Unavailable Unavailable Insurance Providers Payer name Policy type / Coverage Policy ID Covered constitution party ID Policy Campbell type AETNA - AEXCEL - CHOICE PLUS - NAP (POS II) AETNA - AEXCEL - CHOICE PLUS - NAP (POS II) Encounters Encounter Performer Location Date Office Visit Jeramy Rao MD [facility] Jun 17, 2014 [place] Allergies, Adverse Reactions, Alerts Type Substance Reaction [...] 29, 2011 mammogram Completed at [facility] Mar 31, 2012 smoking status former smoker Sep 24, 2007 colonoscopy Complete Aug 13, 2012 colonoscopy Complete Nov 27, 2012 mammogram Completed at [facility] Dec 09, 2013 smoking status Former [...] daily for blood Jun 04, 2014 Active [id number]-BAR pressure and heart METAXALONE 800 MG TABS [...] 2011Oct 09, platelet count PLATELETS 256 K/CMM 453-973 3680 /mm3 Jun 22, hemoglobin, blood HGB 13.4 g/dL 12.0-16.0 2012Jun 22, hematocrit, blood HCT 41.2 % 36.0-48.0 2012Jun 22, platelet count PLATELETS 288 K/CMM 036-318 4643 /mm3 Oct 09, hemoglobin, blood HGB 13.8 g/dL 12.0-16.0 2011Oct 09, hematocrit, blood HCT 42.8 % 36.0-48.0 2011Oct 09, platelet count PLATELETS 256 K/CMM 163-078 2256 /mm3 Jun 22, hemoglobin, blood HGB 13.4 g/dL 12.0-16.0 2012Jun 22, hematocrit, blood HCT 41.2 % 36.0-48.0 2012Jun 22, platelet count PLATELETS 288 K/CMM 909-347 4697 /mm3 Aug 02, hemoglobin, blood HGB 13.5 g/dL 12.0-16.0 2013Aug 02, hematocrit, blood HCT 40.3 % 36.0-48.0 2013Aug 02, platelet count PLATELETS 228 K/CMM 062-101 0022 /mm3 Dec 09, erythrocyte ESR 6 mm/hr 0-20 2013 sedimentation rate Jun 04, hemoglobin, blood HGB 13.4 g/dL 12.0-16.0 2014Jun 04, hematocrit, blood HCT 40.6 % 36.0-48.0 2014Jun 04, platelet count PLATELETS 220 K/CMM 916-228 1239 /mm3 Jun 17, hemoglobin, blood HGB 12.9 g/dL 12.0-16.0 2014Jun 17, hematocrit, blood HCT 39.7 % 36.0-48.0 2014Jun 17, platelet count PLATELETS 269 K/CMM 889-433 8359 /mm3 Oct 10, urine color UA COLOR [...] Oct 09, sodium, serum SODIUM 143 MEQ/L 068-738 1986 mmol/L Oct 09, potassium, serum POTASSIUM 4.7 [...] Jun 22, sodium, serum SODIUM 139 MEQ/L 579-871 7335 mmol/L Jun 22, potassium, serum POTASSIUM 3.8 [...] Oct 09, sodium, serum SODIUM 143 MEQ/L 819-217 9823 mmol/L Oct 09, potassium, serum POTASSIUM 4.7 [...] Jun 22, sodium, serum SODIUM 139 MEQ/L 127-953 5759 mmol/L Jun 22, potassium, serum POTASSIUM 3.8 [...] 2012July 07, sodium, serum SODIUM 141 MEQ/L 116-588 2083 mmol/L July 07, potassium, serum POTASSIUM 4.1 [...] Aug 02, sodium, serum SODIUM 139 MEQ/L 780-741 7272 mmol/L Aug 02, potassium, serum POTASSIUM 4.4 [...] Dec 09, sodium, serum SODIUM 140 MEQ/L 562-868 7709 mmol/L Dec 09, potassium, serum POTASSIUM 4.6 [...] Jun 04, sodium, serum SODIUM 135 MEQ/L 681-909 6156 mmol/L Jun 04, potassium, serum POTASSIUM 4.3 [...] 2014Jun 17, sodium, serum SODIUM 139 MEQ/L 466-838 7143 mmol/L Jun 17, potassium, serum POTASSIUM 3.7 [...]
--- OUTSIDE RECORDS SUMMARY | 2018-08-22 07:07 | XMS REPORT | Continuity of Care Document ---
:1955 Author Organization [facility] Care Team Providers Name Role Phone MD Jalen, Jeramy Unavailable Unavailable Insurance Providers Payer name Policy type / Coverage Policy ID Covered constitution party ID Policy Campbell type AETNA - AEXCEL - CHOICE PLUS - NAP (POS II) AETNA - AEXCEL - CHOICE PLUS - NAP (POS II) Encounters Encounter Performer Location Date Lab Report Jeramy Rao MD [facility] Jun 17, 2014 [place] Allergies, Adverse Reactions, Alerts Type Substance Reaction [...] quit Nov 29, 2011 mammogram Completed at [facility] Mar 31, 2012 smoking status former smoker Sep 24, 2007 colonoscopy Complete Aug 13, 2012 colonoscopy Complete Nov 27, 2012 mammogram Completed at [facility] Dec 09, 2013 smoking status Former [...] daily for blood Jun 04, 2014 Active [id number] pressure and heart METAXALONE 800 MG TABS [...] 2011Oct 09, platelet count PLATELETS 256 K/CMM 197-245 6870 /mm3 Jun 22, hemoglobin, blood HGB 13.4 g/dL 12.0-16.0 2012Jun 22, hematocrit, blood HCT 41.2 % 36.0-48.0 2012Jun 22, platelet count PLATELETS 288 K/CMM 665-736 7918 /mm3 Oct 09, hemoglobin, blood HGB 13.8 g/dL 12.0-16.0 2011Oct 09, hematocrit, blood HCT 42.8 % 36.0-48.0 2011Oct 09, platelet count PLATELETS 256 K/CMM 651-738 5212 /mm3 Jun 22, hemoglobin, blood HGB 13.4 g/dL 12.0-16.0 2012Jun 22, hematocrit, blood HCT 41.2 % 36.0-48.0 2012Jun 22, platelet count PLATELETS 288 K/CMM 975-927 0337 /mm3 Aug 02, hemoglobin, blood HGB 13.5 g/dL 12.0-16.0 2013Aug 02, hematocrit, blood HCT 40.3 % 36.0-48.0 2013Aug 02, platelet count PLATELETS 228 K/CMM 510-314 5515 /mm3 Dec 09, erythrocyte ESR 6 mm/hr 0-20 2013 sedimentation rate Jun 04, hemoglobin, blood HGB 13.4 g/dL 12.0-16.0 2014Jun 04, hematocrit, blood HCT 40.6 % 36.0-48.0 2014Jun 04, platelet count PLATELETS 220 K/CMM 474-741 4956 /mm3 Jun 17, hemoglobin, blood HGB 12.9 g/dL 12.0-16.0 2014Jun 17, hematocrit, blood HCT 39.7 % 36.0-48.0 2014Jun 17, platelet count PLATELETS 269 K/CMM 576-623 4361 /mm3 Oct 10, urine color UA COLOR [...] Oct 09, sodium, serum SODIUM 143 MEQ/L 695-896 3097 mmol/L Oct 09, potassium, serum POTASSIUM 4.7 [...] Jun 22, sodium, serum SODIUM 139 MEQ/L 636-115 1831 mmol/L Jun 22, potassium, serum POTASSIUM 3.8 [...] Oct 09, sodium, serum SODIUM 143 MEQ/L 578-691 3290 mmol/L Oct 09, potassium, serum POTASSIUM 4.7 [...] Jun 22, sodium, serum SODIUM 139 MEQ/L 525-439 3418 mmol/L Jun 22, potassium, serum POTASSIUM 3.8 [...] 2012July 07, sodium, serum SODIUM 141 MEQ/L 957-932 1141 mmol/L July 07, potassium, serum POTASSIUM 4.1 [...] Aug 02, sodium, serum SODIUM 139 MEQ/L 129-993 2277 mmol/L Aug 02, potassium, serum POTASSIUM 4.4 [...] Dec 09, sodium, serum SODIUM 140 MEQ/L 710-729 9776 mmol/L Dec 09, potassium, serum POTASSIUM 4.6 [...] Jun 04, sodium, serum SODIUM 135 MEQ/L 706-432 4133 mmol/L Jun 04, potassium, serum POTASSIUM 4.3 [...] 2014Jun 17, sodium, serum SODIUM 139 MEQ/L 956-109 9081 mmol/L Jun 17, potassium, serum POTASSIUM 3.7 [...]
--- OUTSIDE RECORDS SUMMARY | 2018-08-22 07:08 | XMS REPORT | Continuity of Care Document ---
[...] Location Date Lab Report Jeramy Rao MD [facility] Jun 17, [address] [place] Allergies, Adverse Reactions, Alerts Type Substance Reaction [...] 29, 2011 mammogram Completed at [facility] Mar 31, 2012 smoking status former smoker Sep 24, 2007 colonoscopy Complete Aug 13, 2012 colonoscopy Complete Nov 27, 2012 mammogram Completed at [facility] Dec 09, 2013 smoking status [...] daily for blood Jun 04, 2014 Active BZ03B-FLL pressure and heart METAXALONE 800 MG TABS [...] 2011Oct 09, platelet count PLATELETS 256 K/CMM 675-154 1638 /mm3 Jun 22, hemoglobin, blood HGB 13.4 g/dL 12.0-16.0 2012Jun 22, hematocrit, blood HCT 41.2 % 36.0-48.0 2012Jun 22, platelet count PLATELETS 288 K/CMM 238-067 3246 /mm3 Oct 09, hemoglobin, blood HGB 13.8 g/dL 12.0-16.0 2011Oct 09, hematocrit, blood HCT 42.8 % 36.0-48.0 2011Oct 09, platelet count PLATELETS 256 K/CMM 556-917 9490 /mm3 Jun 22, hemoglobin, blood HGB 13.4 g/dL 12.0-16.0 2012Jun 22, hematocrit, blood HCT 41.2 % 36.0-48.0 2012Jun 22, platelet count PLATELETS 288 K/CMM 825-634 1985 /mm3 Aug 02, hemoglobin, blood HGB 13.5 g/dL 12.0-16.0 2013Aug 02, hematocrit, blood HCT 40.3 % 36.0-48.0 2013Aug 02, platelet count PLATELETS 228 K/CMM 334-923 8980 /mm3 Dec 09, erythrocyte ESR 6 mm/hr 0-20 2013 sedimentation rate Jun 04, hemoglobin, blood HGB 13.4 g/dL 12.0-16.0 2014Jun 04, hematocrit, blood HCT 40.6 % 36.0-48.0 2014Jun 04, platelet count PLATELETS 220 K/CMM 428-135 8746 /mm3 Jun 17, hemoglobin, blood HGB 12.9 g/dL 12.0-16.0 2014Jun 17, hematocrit, blood HCT 39.7 % 36.0-48.0 2014Jun 17, platelet count PLATELETS 269 K/CMM 754-399 5981 /mm3 Oct 10, urine color UA COLOR [...] Oct 09, sodium, serum SODIUM 143 MEQ/L 785-642 5659 mmol/L Oct 09, potassium, serum POTASSIUM 4.7 [...] Jun 22, sodium, serum SODIUM 139 MEQ/L 821-629 6039 mmol/L Jun 22, potassium, serum POTASSIUM 3.8 [...] Oct 09, sodium, serum SODIUM 143 MEQ/L 617-423 6678 mmol/L Oct 09, potassium, serum POTASSIUM 4.7 [...] Jun 22, sodium, serum SODIUM 139 MEQ/L 602-746 9752 mmol/L Jun 22, potassium, serum POTASSIUM 3.8 [...] 2012July 07, sodium, serum SODIUM 141 MEQ/L 134-694 2966 mmol/L July 07, potassium, serum POTASSIUM 4.1 [...] Aug 02, sodium, serum SODIUM 139 MEQ/L 915-935 8391 mmol/L Aug 02, potassium, serum POTASSIUM 4.4 [...] Dec 09, sodium, serum SODIUM 140 MEQ/L 417-485 6849 mmol/L Dec 09, potassium, serum POTASSIUM 4.6 [...] Jun 04, sodium, serum SODIUM 135 MEQ/L 557-827 9658 mmol/L Jun 04, potassium, serum POTASSIUM 4.3 [...] 2014Jun 17, sodium, serum SODIUM 139 MEQ/L 585-739 3058 mmol/L Jun 17, potassium, serum POTASSIUM 3.7 [...]
[2018-08-22] MEDS ORDERED: KETOROLAC 30 MG/ML INJ ONE (07:39)
[2018-08-22] MEDS ORDERED: predniSONE 20 MG TAB ONE (07:39)
--- NOTE | 2018-08-22 07:58 | RAD REPORT ---
EXAM DESCRIPTION: CT - C Spine Wo Con - 08/22/2018 7:39 am CLINICAL HISTORY: Neck pain, left upper extremity radiculopathy COMPARISON: None. TECHNIQUE: Axial 2 mm thick images of the cervical spine were obtained with sagittal and coronal rec onstruction images generated and reviewed. All CT scans are performed using dose optimization technique as appropriate and may include automated exposure control or mA/KV adjustment according to patient size. FINDINGS: Cervical body height and alignment are normal. No disk space narrowing. No fracture or acu te bony abnormality. No paraspinal mass or hematoma. No gross evidence for disc herniation. Central canal detail is inherently limited on CT imaging. Prom inent facet joint degenerative changes are present at C4-5 and on the left at C5-6. No significant marilyn ny foraminal encroachment seen. IMPRESSION: No fracture or other acute cervical spine finding. Facet joint degenerative changes are present in the midcervical spine. No acute bone finding identifiable. No gross evidence for a disc herniation. Central canal detail is inherently limited. Clinical concern s for disc herniation, central canal abnormality or occult bone process can be addressed with follow- up outpatient MR imaging.
--- NOTE | 2018-08-22 08:04 | ER ---
Nurse's Notes [facility] Name: Reyna Corey Age: 63 yrs Sex: Female : 1955 Arrival Date: 08/22/2018 Time: 06:49 Bed 6 Private MD: Diagnosis: Myalgia;Muscle spasm-neck Presentation: 08/22 07:02 Presenting complaint: Patient states: " morning I woke up with the left side of aa5 my neck hurting so I thought that I had slept wrong but now it's radiating to my shoulders, upper back, and scalp". Pt states "I was just seen here last night and they gave me Valium but the pain relief did not last". 07:02 Transition of care: patient was not received from another setting of care. Onset of aa5 symptoms was August 2018. Risk Assessment: Do you want to hurt yourself or someone else? Patient reports no desire to harm self or others. Initial Sepsis Screen: Does the patient meet any 2 criteria? No. Patient's initial sepsis screen is negative. Does the patient have a suspected source of infection? No. Patient's initial sepsis screen is negative. Care prior to arrival: None. 07:02 Method Of Arrival: Ambulatory aa5 07:02 Acuity: KAMARI 4 aa5 Historical: - Allergies: 07:10 Activella; aa5 07:10 Fosamax; aa5 - Home Meds: 07:10 blood pressure med [Active]; aa5 - PMHx: 07:10 Hypertension; aa5 - PSHx: 07:10 Appendectomy; Tubal ligation; Tonsillectomy; aa5 - Immunization history:: Flu vaccine is up to date. - Social history:: Smoking status: Patient/guardian denies using tobacco. - Ebola Screening: : No symptoms or risks identified at this time. Screenin:11 Abuse screen: Denies threats or abuse. Nutritional screening: No deficits noted. aa5 Tuberculosis screening: No symptoms or risk factors identified. Fall Risk None identified. Assessment: 07:05 General: Appears comfortable, Behavior is calm, cooperative. Pain: Complains of pain in aa5 neck Pain radiates to jhoana shoulders, upper back, and scalp Pain currently is 5 out of 10 on a pain scale. Quality of pain is described as "it has a heat to it" Pain began 2-3 days ago. Is continuous, Aggravated by increased activity, repositioning, Noted to be resistant to movement. Neuro: Level of Consciousness is awake, alert, obeys commands, Oriented to person, place, time, situation. Cardiovascular: Patient's skin is warm and dry. Respiratory: Airway is patent Respiratory effort is even, unlabored, Respiratory pattern is regular, symmetrical. GI: No signs and/or symptoms were reported involving the gastrointestinal system. : No signs and/or symptoms were reported regarding the genitourinary system. EENT: No signs and/or symptoms were reported regarding the EENT system. Derm: Skin is pink, warm \\T\\ dry. Musculoskeletal: Range of motion: intact in all extremities. 07:28 Reassessment: Patient is alert, oriented x 3, equal unlabored respirations, skin aa5 warm/dry/pink. Pt notified of CT ordered and wait time to be transported to CT, pt verbalized understanding. . 08:00 Reassessment: Patient is alert, oriented x 3, equal unlabored respirations, skin aa5 warm/dry/pink. Patient states feeling better. 08:16 Reassessment: Patient is alert, oriented x 3, equal unlabored respirations, skin aa5 warm/dry/pink. Awaiting for pt's son for ride home. . Vital Signs: 07:02 BP 133 / 79; Pulse 98; Resp 16 S; Temp 98.6(TE); Pulse Ox 97% on R/A; Weight 61.23 kg aa5 (R); Height 5 ft. 2 in. (157.48 cm) (R); Pain 5/10; 07:02 Body Mass Index 24.69 (61.23 kg, 157.48 cm) aa5 ED Course: 06:49 Patient arrived in ED. am2 06:59 Wilfredo Best, SARAH is Primary Nurse. hj 07:02 Arm band placed on Patient placed in an exam room, on a stretcher. aa5 07:02 Patient has correct armband on for positive identification. Bed in low position. Call aa5 light in reach. Side rails up X2. 07:07 Madai Ball, RN is Primary Nurse. aa5 07:09 Triage completed. aa5 07:12 Vanessa Govea FNP-C is PHCP. kb 07:12 Chrissy Ortega MD is Attending Physician. kb 07:39 CT C Spine In Process Unspecified. EDMS 07:41 CT completed. Patient tolerated procedure well. Patient moved back from CT. mw3 08:15 No provider procedures requiring assistance completed. Patient did not have IV access aa5 during this emergency room visit. Administered Medications: 07:28 Drug: TORadol 60 mg Route: IM; Site: right gluteus; aa5 08:00 Follow up: Response: No adverse reaction; Pain is decreased aa5 07:28 Drug: predniSONE 40 mg Route: PO; aa5 08:00 Follow up: Response: No adverse reaction; Pain is decreased aa5 08:16 Drug: [place] 10 mg-325 mg 1 tabs Route: PO; aa5 08:16 Follow up: Response: No adverse reaction; Medication administered at discharge. aa5 Outcome: 08:03 Discharge ordered by MD. kb 08:30 Discharged to home ambulatory, with family. aa5 08:30 Condition: improved 08:30 Discharge instructions given to patient, Instructed on discharge instructions, follow up and referral plans. medication usage, Demonstrated understanding of instructions, follow-up care, medications, Prescriptions given X 2. 08:35 Patient left the ED. aa5 Signatures: Dispatcher [employer] EDMS Vanessa Govea, PIPE LAYER HELPER-C PIPE LAYER HELPER-Madai Ellis, RN RN aa5 Wilfredo Best, RN RN Iesha Choi Michelle mw3 Corrections: (The following items were deleted from the chart) 09:28 08:47 Patient left the ED. aa5 aa5
--- NOTE | 2018-08-22 08:04 | EDPHYS ---
Physician Documentation [facility] Name: Reyna Corey Age: 63 yrs Sex: Female : 1955 Arrival Date: 08/22/2018 Time: 06:49 Bed 6 Private MD: ED Physician Chrissy Ortega HPI: 08/22 08:26 This 63 yrs old Female presents to ER via Ambulatory with complaints of Neck kb Pain, >24Hrs Old. 08:26 The patient or guardian complains of decreased range of motion, pain, that is acute, kb tenderness. The symptoms are located on the left lateral aspect of neck and left posterior aspect of neck and right lateral aspect of neck and right posterior aspect of neck. Onset: The symptoms/episode began/occurred 3 day(s) ago. Context: The problem was sustained at home, The neck injury/problem resulted from from unknown cause. Associated signs and symptoms: The patient has no apparent associated signs or symptoms, Pertinent positives: This patient does not have any pertinent positive signs or symptoms associated with neck pain. The patient denies any alcohol use. The patient is not apparently intoxicated. No neurological symptoms were experienced by the patient prior to arrival in the emergency department. The pain radiates to the left trapezius and right trapezius. Modifying factors: The symptoms are alleviated by remaining still, the symptoms are aggravated by movement. Severity of symptoms: At their worst the symptoms were moderate, in the emergency department the symptoms are unchanged. The patient has experienced similar episodes in the past. The patient has been recently seen at the [facility] Emergency Department, yesterday, for similar complaints. Pt reports left neck pain that she woke up with on morning. STates it felt like a crick in the neck that she has had several times before, but she is normally able to get rid of the pain on her own. STates this pain spread to both sides of her neck and into shoulders. Was seen last night and given a dose of valium, but states "it made me drowsy, but did nothing for the pain." States she has tried cold and hot compress, methocarbamol and tramadol at home with no relief. Denies fever or malaise. No spinal tenderness.. Historical: - Allergies: 07:10 Activella; aa5 07:10 Fosamax; aa5 - Home Meds: 07:10 blood pressure med [Active]; aa5 - PMHx: 07:10 Hypertension; aa5 - PSHx: 07:10 Appendectomy; Tubal ligation; Tonsillectomy; aa5 - Immunization history:: Flu vaccine is up to date. - Social history:: Smoking status: Patient/guardian denies using tobacco. - Ebola Screening: : No symptoms or risks identified at this time. ROS: 08:25 Constitutional: Negative for fever, chills, and weight loss, ENT: Negative for injury, kb pain, and discharge, Cardiovascular: Negative for chest pain, palpitations, and edema, Respiratory: Negative for shortness of breath, cough, wheezing, and pleuritic chest pain, Abdomen/GI: Negative for abdominal pain, nausea, vomiting, diarrhea, and constipation, Back: Negative for injury and pain, : Negative for injury, bleeding, discharge, and swelling, MS/Extremity: Negative for injury and deformity, Skin: Negative for injury, rash, and discoloration, Neuro: Negative for headache, weakness, numbness, tingling, and seizure. 08:25 Neck: Positive for pain with movement, tenderness, of the left lateral aspect of neck and left posterior aspect of neck and right lateral aspect of neck and right posterior aspect of neck. Exam: 08:23 Constitutional: This is a well developed, well nourished patient who is awake, alert, kb and in no acute distress. Head/Face: Normocephalic, atraumatic. ENT: Nares patent. No nasal discharge, no septal abnormalities noted. Tympanic membranes are normal and external auditory canals are clear. Oropharynx with no redness, swelling, or masses, exudates, or evidence of obstruction, uvula midline. Mucous membranes moist. Chest/axilla: Normal chest wall appearance and motion. Nontender with no deformity. No lesions are appreciated. Cardiovascular: Regular rate and rhythm with a normal S1 and S2. No gallops, murmurs, or rubs. Normal PMI, no JVD. No pulse deficits. Respiratory: Lungs have equal breath sounds bilaterally, clear to auscultation and percussion. No rales, rhonchi or wheezes noted. No increased work of breathing, no retractions or nasal flaring. Abdomen/GI: Soft, non-tender, with normal bowel sounds. No distension or tympany. No guarding or rebound. No evidence of tenderness throughout. Skin: Warm, dry with normal turgor. Normal color with no rashes, no lesions, and no evidence of cellulitis. MS/ Extremity: Pulses equal, no cyanosis. Neurovascular intact. Full, normal range of motion. Neuro: Awake and alert, GCS 15, oriented to person, place, time, and situation. Cranial nerves II-XII grossly intact. Motor strength 5/5 in all extremities. Sensory grossly intact. Cerebellar exam normal. Normal gait. 08:23 Neck: External neck: tenderness, that is moderate, of the right posterior aspect of neck, right lateral aspect of neck, left posterior aspect of neck and left lateral aspect of neck, C-spine: appears grossly normal, no vertebral tenderness, no crepitus, Trachea: is midline with no obvious abnormalities, ROM/movement: pain, that is moderate, with any movement, Meningeal signs: are not present, nuchal rigidity, is not appreciated, Lymph nodes: no appreciated lymphadenopathy. Vital Signs: 07:02 BP 133 / 79; Pulse 98; Resp 16 S; Temp 98.6(TE); Pulse Ox 97% on R/A; Weight 61.23 kg aa5 (R); Height 5 ft. 2 in. (157.48 cm) (R); Pain 5/10; 07:02 Body Mass Index 24.69 (61.23 kg, 157.48 cm) aa5 MDM: 07:12 Patient medically screened. kb 08:04 Data reviewed: vital signs, nurses notes. Data interpreted: Pulse oximetry: on room air kb is 97 %. Interpretation: normal. Counseling: I had a detailed discussion with the patient and/or guardian regarding: the historical points, exam findings, and any diagnostic results supporting the discharge/admit diagnosis, radiology results, the need for outpatient follow up, a family practitioner, to return to the emergency department if symptoms worsen or persist or if there are any questions or concerns that arise at home. ED course: Pt reports her neck is starting to feel better after toradol and prednisone. Still having pain, but feels like it is loosening up.. 08/22 07:20 Order name: CT C Spine; Complete Time: 07:59 kb Administered Medications: 07:28 Drug: TORadol 60 mg Route: IM; Site: right gluteus; aa5 08:00 Follow up: Response: No adverse reaction; Pain is decreased aa5 07:28 Drug: predniSONE 40 mg Route: PO; aa5 08:00 Follow up: Response: No adverse reaction; Pain is decreased aa5 08:16 Drug: [place] 10 mg-325 mg 1 tabs Route: PO; aa5 08:16 Follow up: Response: No adverse reaction; Medication administered at discharge. aa5 Disposition: 08/22/18 08:03 Discharged to Home. Impression: Myalgia, Muscle spasm - neck. - Condition is Stable. - Discharge Instructions: Muscle Pain, Adult, Muscle Cramps and Spasms, [id number]. - Prescriptions for Prednisone 20 mg Oral Tablet - take 1 tablet by ORAL route once daily for 5 days; 5 tablet. Diclofenac Sodium 75 mg Oral Tablet, Delayed Release (E.C.) - take 1 tablet by ORAL route 2 times per day As needed; 30 tablet. - Medication Reconciliation Form, Thank You Letter, Antibiotic Education, Prescription Opioid Use form. - Follow up: Emergency Department; When: As needed; Reason: Worsening of condition. Follow up: Private Physician; When: 2 - 3 days; Reason: Recheck today's complaints, Continuance of care, Re-evaluation by your physician. Addendum: 08/25/2018 10:32 Co-signature as Attending Physician, Chrissy Ortega MD. m a2 Signatures: Dispatcher [employer] Vanessa Vinson FNP-C FNP-Ckb Calderon, Audri, RN RN aa5 Chrissy Ortega MD MD ma2 Corrections: (The following items were deleted from the chart) 08/22 08:31 08:26 Pt reports left neck pain that she woke up with on morning. STates it kb felt like a crick in the neck that she has had several times before, but she is normally able to get rid of the pain on her own. STates this pain spread to both sides of her neck and into shoulders. Was seen last night and given a dose of valium, but states "it made me drowsy, but did nothing for the pain." States she has tried cold and hot compress, methocarbamol and tramadol at home with no relief. . kb 08:47 08:03 08/22/2018 08:03 Discharged to Home. Impression: Myalgia; Muscle spasm - neck. aa5 Condition is Stable. Forms are Medication Reconciliation Form, Thank You Letter, Antibiotic Education, Prescription Opioid Use. Follow up: Emergency Department; When: As needed; Reason: Worsening of condition. Follow up: Private Physician; When: 2 - 3 days; Reason: Recheck today's complaints, Continuance of care, Re-evaluation by your physician. kb
[2018-08-22] MEDS ORDERED: HYDROCODONE/APAP 10/325 TAB ONE (08:28)
== END 2018-08-22 08:47 | disposition home or self-care (01) ==
LOC: ER 06:48
DX: M62.838 Other muscle spasm (principal); M79.10 Myalgia, unspecified site; I10 Essential (primary) hypertension; Z88.8 Allergy status to other drugs, medicaments and biological substances
CPT/HCPCS: 72125; 96372; 99284; J7512